=== PATIENT | female | born 1960 | race Caucasian/White ===

== ENCOUNTER 2018-02-24 19:38 | Emergency (ER) | payer MEDICARE, OTHER ==
[~2018-02-24] VITALS: Ht 160 cm; Wt 62.5 kg
[~2018-02-24 19:38] MED LIST: BUDE3CAP15 PO; CHOL5POW PO; HYDR-569 PO; LACT1CAP73 PO; LEVO500T89 PO; LOPE-144 PO; MESA800T PO; MESA800T3 PO; METR500T4 PO; OXYC-145 PO; PHE12.5T PO; PRED10TA PO; PROC-8 PO
[2018-02-24 20:27] LABS: BASOPHILS # (AUTO) 0.1 X10'3 (0-0.2); BASOPHILS % (AUTO) 0.8 % (0-1); EOSINOPHILS # (AUTO) 0.1 X10'3 (0-0.9); EOSINOPHILS % (AUTO) 1.3 % (0-6); HEMATOCRIT 37.4 % (35.0-45.0); HEMOGLOBIN 12.6 g/dl (12.0-16.0); LYMPHOCYTES # (AUTO) 2.7 X10'3 (1.1-4.8); LYMPHOCYTES % (AUTO) 38.8 % (21-51); MEAN CORPUSCULAR HEMOGLOBIN 30.7 PG (27.0-31.0); MEAN CORPUSCULAR HGB CONC 33.6 % (33.0-36.5); MEAN CORPUSCULAR VOLUME 91.3 FL (78-98); MEAN PLATELET VOLUME 8.3 FL (7.4-10.4); MONOCYTES # (AUTO) 0.5 X10'3 (0-0.9); MONOCYTES % (AUTO) 7.8 % (2-12); NEUTROPHILS # (AUTO) 3.6 X10'3 (1.8-7.7); NEUTROPHILS % (AUTO) 51.3 % (42-75); PLATELET COUNT 336 X10'3 (140-440)
[2018-02-24 20:37] LABS: INR 0.9 INR; PROTHROMBIN TIME 9.3 SECONDS (9.0-12.0)
[2018-02-24 20:41] LABS: ALANINE AMINOTRANSFERASE 24 U/L (12-78); ALBUMIN 3.6 G/DL (3.4-5.0); ALBUMIN/GLOBULIN RATIO 1.1 (1.1-1.5); ALKALINE PHOSPHATASE 71 IU/L (46-116); ANION GAP 15 (8-16); ASPARTATE AMINO TRANSFERASE 14 U/L (10-37); BILIRUBIN,TOTAL 0.2 MG/DL (0.1-1.0); BLOOD UREA NITROGEN 9 MG/DL (7-18); BUN/CREATININE RATIO 15.3 (6.6-38.0); CALCIUM 8.8 MG/DL (8.5-10.1); CHLORIDE 105 MMOL/L (99-107); CREATININE 0.59 MG/DL (0.40-0.90); GLUCOSE 102 MG/DL (70-104); POTASSIUM 3.2 MMOL/L (3.5-5.1); SODIUM 143 MMOL/L (135-145); TOTAL CARBON DIOXIDE 23.5 MMOL/L (24-32); TOTAL PROTEIN 6.9 G/DL (6.4-8.2); eGFR > 90 ML/MIN
[2018-02-24] MEDS ORDERED: morphine 4 MG/ML inj SYRINge IV ONE (23:10)
[2018-02-24] MEDS ORDERED: methylPREDNISolone sod succ 125mg/2ml vial IV ONE (23:10)
[2018-02-24] MEDS ORDERED: ondansetron/PF 4mg/2ml inj IV ONE (23:10)
[2018-02-24] MEDS ORDERED: normal saline 1000ML IV soln IVB ONE (23:10)
[2018-02-24] MEDS ORDERED: iohexol 300mg/ml 100ml inj. ONE (23:29)
[2018-02-24] MEDS ORDERED: potassium Cl 20 mEq SR tablet PO STA (23:49)
[2018-02-25] MEDS ORDERED: morphine 4 MG/ML inj SYRINge IV ONE (00:45)
[2018-02-25] MEDS ORDERED: loperamide 2mg capsule PO ONE (01:25)
[2018-02-25] MEDS ORDERED: LOPE-155 PO (01:28)
[2018-02-25 01:32] VITALS: BP 121/73
[2018-02-25 01:43] LABS: CLARITY,URINE CLEAR (Clear); COLOR,URINE YELLOW (Yellow); GLUCOSE, URINE NEGATIVE (Neg); KETONES,URINE NEGATIVE (Neg); LEUKOCYTE ESTERASE ,URINE NEGATIVE (Neg); NITRITES, URINE NEGATIVE (Neg); OCCULT BLOOD,URINE TRACE-INTACT (Neg); PH,URINE 5.5 (4.8-8.0); PROTEIN,URINE NEGATIVE (Neg); UROBILINOGEN,URINE 0.2 E.U/dL (0.2-1.0)
[2018-02-25] MEDS ORDERED: HYDR-569 PO (01:44)
[2018-02-25 01:47] LABS: UA COLLECTION TYPE CLN CATCH MIDSTREAM
[2018-02-25 01:59] LABS: BACTERIA,URINE FEW /HPF (Neg)
[2018-02-25 02:00] LABS: SQUAMOUS EPITHELIAL CELL,UR NONE SEEN /LPF (FEW); WBC,URINE NONE SEEN /HPF (0-4)
== END 2018-02-25 02:08 | disposition home or self-care (01) ==
LOC: ER 19:38
DX: R19.7 Diarrhea, unspecified (principal); E87.0 Hyperosmolality and hypernatremia; G89.29 Other chronic pain; F17.200 Nicotine dependence, unspecified, uncomplicated; F12.10 Cannabis abuse, uncomplicated; Z86.711 Personal history of pulmonary embolism; Z90.49 Acquired absence of other specified parts of digestive tract; Z98.84 Bariatric surgery status; Z88.8 Allergy status to other drugs, medicaments and biological substances; Z79.899 Other long term (current) drug therapy
CPT/HCPCS: 36415; 74177; 80053; 81001; 85025; 85610; 85651; 96361; 96374; 96375; 96376; 99285; J2270; J2405; J2930; J7030; Q9967

== ENCOUNTER 2018-06-14 10:47 | Emergency (ER) | payer OTHER ==
[~2018-06-14] VITALS: Ht 162.6 cm; Wt 68.1 kg
[~2018-06-14 10:47] MED LIST changes: +LOPE-155 PO
[2018-06-14] MEDS ORDERED: normal saline 1000ML IV soln IVB ONE (11:00)
[2018-06-14] MEDS ORDERED: morphine 4 MG/ML inj SYRINge IV PRN (11:00)
[2018-06-14] MEDS ORDERED: ondansetron/PF 4mg/2ml inj IV ONE (11:00)
[2018-06-14] MEDS ORDERED: ONDA4TAB9 PO (11:36)
[2018-06-14] MEDS ORDERED: MESA800T PO (11:36)
[2018-06-14 12:14] LABS: CLARITY,URINE CLEAR (Clear); COLOR,URINE YELLOW (Yellow); GLUCOSE, URINE NEGATIVE (Neg); KETONES,URINE NEGATIVE (Neg); LEUKOCYTE ESTERASE ,URINE NEGATIVE (Neg); NITRITES, URINE NEGATIVE (Neg); OCCULT BLOOD,URINE NEGATIVE (Neg); PROTEIN,URINE NEGATIVE (Neg); UROBILINOGEN,URINE 0.2 E.U/dL (0.2-1.0)
[2018-06-14 12:15] LABS: UA COLLECTION TYPE CLN CATCH MIDSTREAM
[2018-06-14] MEDS ORDERED: ondansetron 4mg rapidly disintigrating tab PO ONE (12:45)
[2018-06-14] MEDS ORDERED: morphine 10mg/ml inj. IM ONE (12:45)
[2018-06-14 13:17] LABS: HEMATOCRIT 38.5 % (35.0-45.0); HEMOGLOBIN 12.9 g/dl (12.0-16.0); MEAN CORPUSCULAR HEMOGLOBIN 30.4 PG (27.0-31.0); MEAN CORPUSCULAR HGB CONC 33.4 % (33.0-36.5); MEAN PLATELET VOLUME 8.5 FL (7.4-10.4); PLATELET COUNT 370 X10'3 (140-440); RED BLOOD COUNT 4.23 X10'6 (4.20-5.60); RED CELL DISTRIBUTION WIDTH 21.5 % (11.5-14.5); WHITE BLOOD COUNT 7.4 X10'3 (4.5-11.0)
[2018-06-14 13:29] LABS: TOTAL CELLS COUNTED 100
[2018-06-14 13:30] LABS: ANISOCYTOSIS 3+; PLATELET ESTIMATE NORMAL
[2018-06-14 13:35] VITALS: BP 140/80
[2018-06-14 13:40] LABS: ALANINE AMINOTRANSFERASE 20 U/L (12-78); ALBUMIN 3.6 G/DL (3.4-5.0); ALBUMIN/GLOBULIN RATIO 1.2 (1.1-1.5); ALKALINE PHOSPHATASE 83 IU/L (46-116); ANION GAP 13 (8-16); ASPARTATE AMINO TRANSFERASE 15 U/L (10-37); BILIRUBIN,TOTAL 0.5 MG/DL (0.1-1.0); BLOOD UREA NITROGEN 9 MG/DL (7-18); CHLORIDE 110 MMOL/L (99-107); CREATININE 0.69 MG/DL (0.40-0.90); GLUCOSE 100 MG/DL (70-104); LIPASE 197 U/L (73-393); POTASSIUM 3.7 MMOL/L (3.5-5.1); SODIUM 146 MMOL/L (135-145); TOTAL CARBON DIOXIDE 23.2 MMOL/L (24-32); TOTAL PROTEIN 6.6 G/DL (6.4-8.2); eGFR 87 ML/MIN
[2018-06-14] MEDS ORDERED: ketorolac tromethamine 15mg/ml inj. IV ONE (13:45)
[2018-06-14] MEDS ORDERED: dicyclomine 10 MG capsule PO ONE (13:45)
[2018-06-14 13:47] LABS: C DIFF ANTIGEN NEGATIVE (NEGATIVE); C DIFF SPECIMEN=DIARRHEA? ACCEPTABLE; C DIFFICILE TOXINS A&B NEGATIVE (Neg)
[2018-06-14] MEDS ORDERED: iohexol 300mg/ml 100ml inj. ONE (13:50)
[2018-06-14] MEDS ORDERED: LOPE2CAP PO (14:32)
[2018-06-14] MEDS ORDERED: ACET-3067 PO (14:32)
[2018-06-14] MEDS ORDERED: OXYC-150 PO (15:03)
[2018-06-14] MEDS ORDERED: ZALE10CA29 PO (15:05)
[2018-06-14] MEDS ORDERED: HYDR8TAB16 PO (15:06)
[2018-06-14] MEDS ORDERED: [UNRECOGNIZED DRUG - CODE] (15:10)
[2018-06-14] MEDS ORDERED: ZOLP10TA PO (15:10)
== END 2018-06-14 15:02 | disposition home or self-care (01) ==
LOC: ER 10:48
DX: R19.7 Diarrhea, unspecified (principal); R10.84 Generalized abdominal pain; M54.9 Dorsalgia, unspecified; R11.0 Nausea; G89.29 Other chronic pain; F12.90 Cannabis use, unspecified, uncomplicated; Z86.14 Personal history of Methicillin resistant Staphylococcus aureus infection; Z90.49 Acquired absence of other specified parts of digestive tract; Z98.0 Intestinal bypass and anastomosis status; Z98.890 Other specified postprocedural states; Z88.8 Allergy status to other drugs, medicaments and biological substances; Z79.899 Other long term (current) drug therapy
CPT/HCPCS: 36415; 74177; 80053; 81003; 83690; 85025; 87045; 87046; 87324; 87449; 96361; 96374; 96375; 99285; J1885; J2270; J2405; J7030; Q9967

== ENCOUNTER 2018-07-15 20:12 | Emergency (ER) | payer OTHER ==
[~2018-07-15] VITALS: Ht 160 cm; Wt 68.2 kg
[~2018-07-15 20:12] MED LIST changes: -BUDE3CAP15 PO; -CHOL5POW PO; -HYDR-569 PO; +HYDR8TAB16 PO; -LACT1CAP73 PO; -LEVO500T89 PO; -LOPE-144 PO; -LOPE-155 PO; -MESA800T PO; -MESA800T3 PO; -METR500T4 PO; +ONDA4TAB9 PO; -OXYC-145 PO; +OXYC-150 PO; -PHE12.5T PO; -PRED10TA PO; -PROC-8 PO; +ZALE10CA29 PO; +ZOLP10TA PO; +[UNRECOGNIZED DRUG - CODE]
[2018-07-15 21:08] LABS: CLARITY,URINE CLEAR (Clear); COLOR,URINE YELLOW (Yellow); GLUCOSE, URINE NEGATIVE (Neg); KETONES,URINE TRACE mg/dl (Neg); LEUKOCYTE ESTERASE ,URINE NEGATIVE (Neg); NITRITES, URINE NEGATIVE (Neg); OCCULT BLOOD,URINE NEGATIVE (Neg); PH,URINE 5.5 (4.8-8.0); PROTEIN,URINE NEGATIVE (Neg); UA COLLECTION TYPE CLN CATCH MIDSTREAM; UROBILINOGEN,URINE 0.2 E.U/dL (0.2-1.0)
[2018-07-15 21:09] LABS: URINE HCG NEGATIVE (NEG)
[2018-07-15] MEDS ORDERED: proCHLORperazine 10 MG/2 ml inj IV ONE (21:55)
[2018-07-15] MEDS ORDERED: normal saline 1000ML IV soln IVB ONE ×2 (21:55)
[2018-07-15] MEDS ORDERED: LORazepam 2 mg/ml vial IV ONE (21:55)
[2018-07-15] MEDS ORDERED: glycopyrrolate 0.2mg/ml inj IV ONE (21:55)
[2018-07-15] MEDS ORDERED: morphine 10mg/ml inj. IV ONE (22:05)
[2018-07-15 22:44] LABS: PROTHROMBIN TIME 9.7 SECONDS (9.0-12.0)
[2018-07-15 22:46] LABS: ALANINE AMINOTRANSFERASE 18 U/L (12-78); ALBUMIN 3.6 G/DL (3.4-5.0); ALBUMIN/GLOBULIN RATIO 1.2 (1.1-1.5); ALKALINE PHOSPHATASE 73 IU/L (46-116); ANION GAP 15 (8-16); ASPARTATE AMINO TRANSFERASE 15 U/L (10-37); BILIRUBIN,TOTAL 0.4 MG/DL (0.1-1.0); BLOOD UREA NITROGEN 5 MG/DL (7-18); BUN/CREATININE RATIO 8.2 (6.6-38.0); CHLORIDE 106 MMOL/L (99-107); CREATININE 0.61 MG/DL (0.40-0.90); GLUCOSE 130 MG/DL (70-104); POTASSIUM 3.8 MMOL/L (3.5-5.1); SODIUM 142 MMOL/L (135-145); TOTAL CARBON DIOXIDE 21.1 MMOL/L (24-32); TOTAL PROTEIN 6.5 G/DL (6.4-8.2); eGFR > 90 ML/MIN
[2018-07-15 22:50] LABS: BASOPHILS % (AUTO) 0 % (0-1); EOSINOPHILS # (AUTO) 0.1 X10'3 (0-0.9); EOSINOPHILS % (AUTO) 1.1 % (0-6); HEMOGLOBIN 12.7 g/dl (12.0-16.0); LYMPHOCYTES # (AUTO) 0.8 X10'3 (1.1-4.8); LYMPHOCYTES % (AUTO) 17.1 % (21-51); MEAN CORPUSCULAR HEMOGLOBIN 31.1 PG (27.0-31.0); MEAN CORPUSCULAR HGB CONC 33.5 % (33.0-36.5); MEAN CORPUSCULAR VOLUME 92.8 FL (78-98); MEAN PLATELET VOLUME 9.2 FL (7.4-10.4); MONOCYTES # (AUTO) 0.1 X10'3 (0-0.9); MONOCYTES % (AUTO) 1.3 % (2-12); NEUTROPHILS # (AUTO) 3.6 X10'3 (1.8-7.7); NEUTROPHILS % (AUTO) 80.5 % (42-75); PLATELET COUNT 313 X10'3 (140-440); RED BLOOD COUNT 4.09 X10'6 (4.20-5.60); RED CELL DISTRIBUTION WIDTH 18.6 % (11.5-14.5); WHITE BLOOD COUNT 4.5 X10'3 (4.5-11.0)
[2018-07-15 23:11] VITALS: BP 111/78
[2018-07-15 23:56] LABS: ANISOCYTOSIS 2+; PLATELET ESTIMATE NORMAL
== END 2018-07-15 23:12 | disposition home or self-care (01) ==
LOC: ER 20:13
DX: K42.9 Umbilical hernia without obstruction or gangrene (principal); R19.7 Diarrhea, unspecified; G89.29 Other chronic pain; F12.90 Cannabis use, unspecified, uncomplicated; Z90.49 Acquired absence of other specified parts of digestive tract; Z88.6 Allergy status to analgesic agent; Z88.8 Allergy status to other drugs, medicaments and biological substances; Z79.899 Other long term (current) drug therapy
CPT/HCPCS: 36415; 80053; 81003; 81025; 85025; 85610; 96361; 96374; 96375; 99284; J0780; J2060; J2270; J3490; J7030

== ENCOUNTER 2018-07-21 17:08 | Emergency (ER) | payer OTHER ==
[~2018-07-21] VITALS: Ht 160 cm; Wt 66.8 kg
[2018-07-21] MEDS ORDERED: morphine 4 MG/ML inj SYRINge IM ONE (17:50)
[2018-07-21] MEDS ORDERED: ondansetron 4mg rapidly disintigrating tab PO ONE (17:50)
[2018-07-21 18:16] LABS: BASOPHILS % (AUTO) 0.1 % (0-1); EOSINOPHILS % (AUTO) 0.3 % (0-6); HEMATOCRIT 37.4 % (35.0-45.0); HEMOGLOBIN 12.7 g/dl (12.0-16.0); LYMPHOCYTES # (AUTO) 1.8 X10'3 (1.1-4.8); LYMPHOCYTES % (AUTO) 29.6 % (21-51); MEAN CORPUSCULAR HEMOGLOBIN 31.4 PG (27.0-31.0); MEAN CORPUSCULAR HGB CONC 33.9 % (33.0-36.5); MEAN CORPUSCULAR VOLUME 92.6 FL (78-98); MEAN PLATELET VOLUME 8.7 FL (7.4-10.4); MONOCYTES # (AUTO) 0.4 X10'3 (0-0.9); MONOCYTES % (AUTO) 6.5 % (2-12); NEUTROPHILS # (AUTO) 3.8 X10'3 (1.8-7.7); NEUTROPHILS % (AUTO) 63.5 % (42-75); PLATELET COUNT 316 X10'3 (140-440); RED BLOOD COUNT 4.04 X10'6 (4.20-5.60); RED CELL DISTRIBUTION WIDTH 17.6 % (11.5-14.5)
[2018-07-21 18:30] LABS: PROTHROMBIN TIME 9.7 SECONDS (9.0-12.0)
[2018-07-21 18:31] LABS: ALANINE AMINOTRANSFERASE 17 U/L (12-78); ALBUMIN 3.4 G/DL (3.4-5.0); ALBUMIN/GLOBULIN RATIO 1.1 (1.1-1.5); ALKALINE PHOSPHATASE 68 IU/L (46-116); ANION GAP 10 (8-16); ASPARTATE AMINO TRANSFERASE 15 U/L (10-37); BILIRUBIN,TOTAL 0.4 MG/DL (0.1-1.0); BLOOD UREA NITROGEN 9 MG/DL (7-18); BUN/CREATININE RATIO 12.9 (6.6-38.0); CALCIUM 9.2 MG/DL (8.5-10.1); CHLORIDE 107 MMOL/L (99-107); GLUCOSE 115 MG/DL (70-104); SODIUM 140 MMOL/L (135-145); TOTAL CARBON DIOXIDE 22.7 MMOL/L (24-32); TOTAL PROTEIN 6.4 G/DL (6.4-8.2); eGFR 86 ML/MIN
[2018-07-21 18:32] LABS: POTASSIUM 3.8 MMOL/L (3.5-5.1)
[2018-07-21 19:03] LABS: LIPASE 142 U/L (73-393)
[2018-07-21 19:04] VITALS: BP 127/66
[2018-07-22 08:44] LABS: C DIFF ANTIGEN NEGATIVE (NEGATIVE); C DIFF SPECIMEN=DIARRHEA? ACCEPTABLE; C DIFFICILE TOXINS A&B NEGATIVE (Neg)
== END 2018-07-21 19:08 | disposition home or self-care (01) ==
LOC: ER 17:15
DX: R10.84 Generalized abdominal pain (principal); R11.10 Vomiting, unspecified; R19.7 Diarrhea, unspecified; G89.29 Other chronic pain; F12.90 Cannabis use, unspecified, uncomplicated; Z86.711 Personal history of pulmonary embolism; Z98.890 Other specified postprocedural states; Z90.49 Acquired absence of other specified parts of digestive tract; Z98.84 Bariatric surgery status; Z88.6 Allergy status to analgesic agent; Z79.899 Other long term (current) drug therapy
CPT/HCPCS: 36415; 80053; 83690; 85025; 85610; 87045; 87046; 87324; 87449; 96374; 99284; J2270

== ENCOUNTER 2018-08-05 10:15 | Inpatient (IN) | payer OTHER ==
[2018-08-04 15:32] LABS: CLARITY,URINE CLOUDY (Clear); COLOR,URINE YELLOW (Yellow); GLUCOSE, URINE NEGATIVE (Neg); KETONES,URINE TRACE mg/dl (Neg); LEUKOCYTE ESTERASE ,URINE SMALL (Neg); NITRITES, URINE POSITIVE (Neg); OCCULT BLOOD,URINE MODERATE (Neg); PH,URINE 5.5 (4.8-8.0); PROTEIN,URINE NEGATIVE (Neg); UROBILINOGEN,URINE 0.2 E.U/dL (0.2-1.0)
[2018-08-04 15:49] LABS: UA COLLECTION TYPE CLN CATCH MIDSTREAM
[2018-08-04 15:51] LABS: BACTERIA,URINE 4+ /HPF (Neg); MUCUS STRANDS MODERATE /LPF (Neg); RBC,URINE 0-2 /HPF (0-2); SQUAMOUS EPITHELIAL CELL,UR MODERATE /LPF (FEW); WBC,URINE TNTC /HPF (0-4)
[2018-08-05] VITALS (16 sets, daily range): BP systolic 96–140; BP diastolic 52–81
[~2018-08-05] VITALS: Ht 160 cm; Wt 66.2 kg
[~2018-08-05 10:15] MED LIST changes: -HYDR8TAB16 PO; +LACT1CAP65 PO; +MESA800T PO; +MULT1TAB74 PO; +STERIOD; -ZALE10CA29 PO; -ZOLP10TA PO; -[UNRECOGNIZED DRUG - CODE]; +cefazolin/dext.iso 2gm/100 ML IV ONE; +famotidine 20mg tablet PO ONE
[2018-08-05] MEDS: ringers solution, lacted 1,000 ML IV SCH ×2 (11:03→17:14)
[2018-08-05 11:42] LABS: BASOPHILS % (AUTO) 0.4 % (0-1); EOSINOPHILS # (AUTO) 0.1 X10'3 (0-0.9); EOSINOPHILS % (AUTO) 1.3 % (0-6); LYMPHOCYTES # (AUTO) 1.9 X10'3 (1.1-4.8); MEAN CORPUSCULAR HEMOGLOBIN 30.8 PG (27.0-31.0); MEAN CORPUSCULAR HGB CONC 33.3 % (33.0-36.5); MEAN CORPUSCULAR VOLUME 92.6 FL (78-98); MEAN PLATELET VOLUME 8.5 FL (7.4-10.4); MONOCYTES # (AUTO) 0.4 X10'3 (0-0.9); MONOCYTES % (AUTO) 7.3 % (2-12); NEUTROPHILS # (AUTO) 3.5 X10'3 (1.8-7.7); PRE OP HEMATOCRIT 41.2 % (35.0-45.0); PRE OP HEMOGLOBIN 13.7 g/dL (12.0-16.0); PRE OP PLATELET COUNT 370 X10'3 (140-440); RED BLOOD COUNT 4.45 X10'6 (4.20-5.60); RED CELL DISTRIBUTION WIDTH 15.8 % (11.5-14.5)
[2018-08-05 11:56] LABS: ALBUMIN 3.6 G/DL (3.4-5.0); ALBUMIN/GLOBULIN RATIO 1.1 (1.1-1.5); ALKALINE PHOSPHATASE 72 IU/L (46-116); BLOOD UREA NITROGEN 13 MG/DL (7-18); BUN/CREATININE RATIO 16.3 (6.6-38.0); CALCIUM 9.3 MG/DL (8.5-10.1); CHLORIDE 105 MMOL/L (99-107); PRE OP ALT 17 U/L (30-65); PRE OP ANION GAP 10 (8-16); PRE OP AST 10 U/L (10-37); PRE OP BILIRUB, TOTAL 0.3 MG/DL (0.0-1.0); PRE OP GLUCOSE 96 MG/DL (70-104); PRE OP POTASSIUM 4.1 MMOL/L (3.4-5.1); PRE OP SODIUM 141 MMOL/L (135-145); TOTAL CARBON DIOXIDE 26.5 MMOL/L (24-32); TOTAL PROTEIN 6.9 G/DL (6.4-8.2); eGFR 74 ML/MIN
[2018-08-05] MEDS ORDERED: ceFAZolin 1000mg inj ONE (12:39)
[2018-08-05] MEDS ORDERED: BUPIVAcaine/PF 2.5mg/ml (0.25%) 10ml vial ONE (12:39)
[2018-08-05] MEDS ORDERED: metoprolol tartrate 1mg/ml inj IV ONE (13:30)
[2018-08-05] MEDS ORDERED: esmolol 10mg/ml inj IV ONE (13:30)
[2018-08-05] MEDS ORDERED: sevoflurane 250ml liquid IH ONE (13:30)
[2018-08-05] MEDS ORDERED: furosemide 20 MG/2 ML vial ONE (13:30)
[2018-08-05] MEDS ORDERED: midazolam 2 mg/2 ml injection ONE (13:34)
[2018-08-05] MEDS ORDERED: fentaNYL /PF 50mcg/ml 5ml ampule ONE (13:34)
[2018-08-05] MEDS ORDERED: levoFLOXACIN-Levaquin 500mg/D5 100 ML IV ONE (13:35)
[2018-08-05] MEDS ORDERED: rocuronium 10mg/ml inj IV ONE ×3 (13:49→14:41)
[2018-08-05] MEDS ORDERED: LIDOcaine 2% (20mg/ml) 5ml vial ONE (13:49)
[2018-08-05] MEDS ORDERED: propofol inj 20 ML IV ONE (13:49)
[2018-08-05] MEDS ORDERED: morphine 10mg/ml inj. ONE (14:35)
[2018-08-05] MEDS ORDERED: acetaminophen 1,000mg/100ml IV 100 ML IV ONE (15:36)
[2018-08-05] MEDS ORDERED: meperidine/PF 25mg/ml syringe ONE (15:55)
[2018-08-05] MEDS ORDERED: ringers solution, lacted 1,000 ML IV SCH (15:59)
[2018-08-05] MEDS ORDERED: meperidine/PF 25mg/ml syringe IV PRN ×3 (16:00)
[2018-08-05] MEDS ORDERED: ondansetron/PF 4mg/2ml inj IV PRN (16:00)
[2018-08-05] MEDS ORDERED: morphine 4 MG/ML inj SYRINge IV PRN ×2 (16:00)
[2018-08-05] MEDS ORDERED: proCHLORperazine 10 MG/2 ml inj IV PRN (16:00)
[2018-08-05] MEDS: HYDROmorphone inj. 0.5 MG/0.5 ML DISP.SYRIN IV PRN ×3 (16:07→16:39)
[2018-08-05] MEDS ORDERED: neostigmine methylsulfate 1 MG/ML 10ml vial ONE (16:07)
[2018-08-05] MEDS ORDERED: dexamethasone sod phosphate 4mg/ml inj. ONE (16:07)
[2018-08-05] MEDS ORDERED: ondansetron/PF 4mg/2ml inj ONE (16:07)
[2018-08-05] MEDS ORDERED: glycopyrrolate 0.2mg/ml inj ONE (16:07)
[2018-08-05] MEDS: Potassium Cl inj 20 MEQ in ringers solution, lacted 1,000 ML IV SCH ×2 (16:26→23:44)
[2018-08-05] MEDS ORDERED: naloxone 0.4 mg/ml inj IV PRN (16:30)
[2018-08-05] MEDS ORDERED: HYDROcodone/acetaminophen 5mg/325mg tablet PO PRN (16:30)
[2018-08-05] MEDS: HYDROmorphone/NS 1 mg/ml CADD 50 ML IV SCH ×4 (16:45→23:00)
[2018-08-05] MEDS: ondansetron/PF 4mg/2ml inj IV PRN (21:43)
[2018-08-06] VITALS: BP 101/58
[2018-08-06 00:45] VITALS: BP 100/60
[2018-08-06] MEDS: HYDROmorphone/NS 1 mg/ml CADD 50 ML IV SCH ×12 (01:00→23:00)
[2018-08-06 05:02] LABS: BASOPHILS % (AUTO) 0.3 % (0-1); EOSINOPHILS # (AUTO) 0.1 X10'3 (0-0.9); EOSINOPHILS % (AUTO) 0.9 % (0-6); HEMATOCRIT 31.6 % (35.0-45.0); HEMOGLOBIN 10.6 g/dl (12.0-16.0); LYMPHOCYTES # (AUTO) 1.4 X10'3 (1.1-4.8); LYMPHOCYTES % (AUTO) 16.3 % (21-51); MEAN CORPUSCULAR HEMOGLOBIN 31.3 PG (27.0-31.0); MEAN CORPUSCULAR HGB CONC 33.7 % (33.0-36.5); MEAN CORPUSCULAR VOLUME 93.1 FL (78-98); MEAN PLATELET VOLUME 9.1 FL (7.4-10.4); MONOCYTES # (AUTO) 0.7 X10'3 (0-0.9); MONOCYTES % (AUTO) 8.5 % (2-12); NEUTROPHILS # (AUTO) 6.1 X10'3 (1.8-7.7); PLATELET COUNT 274 X10'3 (140-440); RED CELL DISTRIBUTION WIDTH 15.4 % (11.5-14.5); WHITE BLOOD COUNT 8.3 X10'3 (4.5-11.0)
[2018-08-06] MEDS: mesalamine 400 mg capsule.DR PO SCH ×3 (07:00→17:58)
[2018-08-06 07:35] VITALS: BP 96/58
[2018-08-06] MEDS: Potassium Cl inj 20 MEQ in ringers solution, lacted 1,000 ML IV SCH ×2 (07:55→16:19)
[2018-08-06] MEDS: enoxaparin 40mg/0.4ml syringe SQ SCH (07:59)
[2018-08-06 11:00] VITALS: BP 102/58
[2018-08-06] MEDS: levoFLOXACIN 750MG TABLET PO SCH (11:12)
[2018-08-06] MEDS: ondansetron/PF 4mg/2ml inj IV PRN (12:28)
[2018-08-06] MEDS: nicotine 21mg patch - 24 hr TD SCH (16:17)
[2018-08-06 18:00] VITALS: BP 117/70
[2018-08-06] MEDS: lactobacillus rhamnosus 10,000 MMU CELLS/CAPSULE PO SCH (19:19)
[2018-08-07] VITALS: BP 126/75
[2018-08-07] MEDS: Potassium Cl inj 20 MEQ in ringers solution, lacted 1,000 ML IV SCH ×3 (00:01→17:06)
[2018-08-07] MEDS: HYDROmorphone/NS 1 mg/ml CADD 50 ML IV SCH ×12 (01:00→23:00)
[2018-08-07] MEDS: ondansetron/PF 4mg/2ml inj IV PRN ×3 (01:43→20:56)
[2018-08-07 07:16] VITALS: BP 96/52
[2018-08-07] MEDS: lactobacillus rhamnosus 10,000 MMU CELLS/CAPSULE PO SCH ×2 (07:28→19:37)
[2018-08-07] MEDS: mesalamine 400 mg capsule.DR PO SCH ×3 (07:31→17:15)
[2018-08-07] MEDS: enoxaparin 40mg/0.4ml syringe SQ SCH (07:33)
[2018-08-07] MEDS: nicotine 21mg patch - 24 hr TD SCH (07:37)
[2018-08-07] MEDS: levoFLOXACIN 750MG TABLET PO SCH (10:41)
[2018-08-07 12:00] VITALS: BP 117/75
[2018-08-07] MEDS: CefTRIAXone/D5W-Rocephin 1gm 50 ML IV SCH (17:06)
[2018-08-07 18:00] VITALS: BP 122/83
[2018-08-08] VITALS: BP 104/62
[2018-08-08] MEDS: HYDROmorphone/NS 1 mg/ml CADD 50 ML IV SCH ×4 (01:00→07:00)
[2018-08-08] MEDS: ondansetron/PF 4mg/2ml inj IV PRN ×5 (01:01→21:07)
[2018-08-08] MEDS: CADD PCA waste documentation MC PRN ×2 (03:06→14:25)
[2018-08-08] MEDS: Potassium Cl inj 20 MEQ in ringers solution, lacted 1,000 ML IV SCH ×2 (03:19→09:06)
[2018-08-08 06:51] VITALS: BP 126/74
[2018-08-08 06:56] LABS: BASOPHILS % (AUTO) 0.3 % (0-1); EOSINOPHILS # (AUTO) 0.1 X10'3 (0-0.9); EOSINOPHILS % (AUTO) 1.7 % (0-6); HEMATOCRIT 31.2 % (35.0-45.0); HEMOGLOBIN 10.4 g/dl (12.0-16.0); LYMPHOCYTES # (AUTO) 1.5 X10'3 (1.1-4.8); MEAN CORPUSCULAR HEMOGLOBIN 31.2 PG (27.0-31.0); MEAN CORPUSCULAR HGB CONC 33.4 % (33.0-36.5); MEAN CORPUSCULAR VOLUME 93.3 FL (78-98); MEAN PLATELET VOLUME 9.4 FL (7.4-10.4); MONOCYTES # (AUTO) 0.6 X10'3 (0-0.9); MONOCYTES % (AUTO) 9.4 % (2-12); NEUTROPHILS # (AUTO) 4.1 X10'3 (1.8-7.7); NEUTROPHILS % (AUTO) 64.6 % (42-75); PLATELET COUNT 263 X10'3 (140-440); RED BLOOD COUNT 3.35 X10'6 (4.20-5.60); RED CELL DISTRIBUTION WIDTH 15.2 % (11.5-14.5); WHITE BLOOD COUNT 6.3 X10'3 (4.5-11.0)
[2018-08-08 07:47] LABS: ALBUMIN 3.1 G/DL (3.4-5.0); ANION GAP 9 (8-16); BLOOD UREA NITROGEN 4 MG/DL (7-18); BUN/CREATININE RATIO 5.9 (6.6-38.0); CALCIUM 9.4 MG/DL (8.5-10.1); CHLORIDE 101 MMOL/L (99-107); CREATININE 0.68 MG/DL (0.40-0.90); GLUCOSE 101 MG/DL (70-104); SODIUM 140 MMOL/L (135-145); eGFR 89 ML/MIN
[2018-08-08] MEDS: CefTRIAXone/D5W-Rocephin 1gm 50 ML IV SCH (07:54)
[2018-08-08] MEDS: enoxaparin 40mg/0.4ml syringe SQ SCH (07:55)
[2018-08-08] MEDS: nicotine 21mg patch - 24 hr TD SCH (07:55)
[2018-08-08] MEDS: mesalamine 400 mg capsule.DR PO SCH ×3 (08:01→17:24)
[2018-08-08] MEDS: lactobacillus rhamnosus 10,000 MMU CELLS/CAPSULE PO SCH ×3 (08:04→21:08)
[2018-08-08 11:00] VITALS: BP 115/87
[2018-08-08] MEDS ORDERED: HYDROmorphone/NS 1 mg/ml CADD 50 ML IV SCH (13:00)
[2018-08-08] MEDS ORDERED: oxyCODONE/APAP 10/325mg tablet PO PRN (14:20)
[2018-08-08] MEDS: HYDROmorphone 1 mg/ml syringe IV PRN ×4 (14:52→22:59)
[2018-08-08] MEDS: oxyCODONE/APAP 10/325mg tablet PO PRN (17:17)
[2018-08-08 18:55] VITALS: BP 104/56
[2018-08-09] VITALS: BP 102/63
[2018-08-09] MEDS: Potassium Cl inj 20 MEQ in ringers solution, lacted 1,000 ML IV SCH ×2 (02:00→03:41)
[2018-08-09] MEDS: HYDROmorphone 1 mg/ml syringe IV PRN ×2 (03:00→07:45)
[2018-08-09] MEDS: oxyCODONE/APAP 10/325mg tablet PO PRN ×4 (04:34→23:04)
[2018-08-09 05:29] LABS: BASOPHILS % (AUTO) 0.4 % (0-1); EOSINOPHILS # (AUTO) 0.1 X10'3 (0-0.9); EOSINOPHILS % (AUTO) 1.9 % (0-6); HEMATOCRIT 29.6 % (35.0-45.0); HEMOGLOBIN 9.8 g/dl (12.0-16.0); LYMPHOCYTES # (AUTO) 0.7 X10'3 (1.1-4.8); LYMPHOCYTES % (AUTO) 14.9 % (21-51); MEAN CORPUSCULAR HEMOGLOBIN 30.8 PG (27.0-31.0); MEAN CORPUSCULAR HGB CONC 33.2 % (33.0-36.5); MEAN CORPUSCULAR VOLUME 92.8 FL (78-98); MEAN PLATELET VOLUME 8.3 FL (7.4-10.4); MONOCYTES # (AUTO) 0.3 X10'3 (0-0.9); MONOCYTES % (AUTO) 7.2 % (2-12); NEUTROPHILS # (AUTO) 3.6 X10'3 (1.8-7.7); NEUTROPHILS % (AUTO) 75.6 % (42-75); PLATELET COUNT 274 X10'3 (140-440); RED BLOOD COUNT 3.19 X10'6 (4.20-5.60); RED CELL DISTRIBUTION WIDTH 15.3 % (11.5-14.5); WHITE BLOOD COUNT 4.8 X10'3 (4.5-11.0)
[2018-08-09 07:16] VITALS: BP 95/56
[2018-08-09] MEDS: mesalamine 400 mg capsule.DR PO SCH ×3 (07:26→17:18)
[2018-08-09] MEDS: lactobacillus rhamnosus 10,000 MMU CELLS/CAPSULE PO SCH ×2 (07:27→19:51)
[2018-08-09] MEDS: enoxaparin 40mg/0.4ml syringe SQ SCH (07:27)
[2018-08-09] MEDS: CefTRIAXone/D5W-Rocephin 1gm 50 ML IV SCH (07:28)
[2018-08-09] MEDS: nicotine 21mg patch - 24 hr TD SCH (07:28)
[2018-08-09] MEDS: ondansetron/PF 4mg/2ml inj IV PRN ×3 (07:45→19:50)
[2018-08-09] MEDS ORDERED: magnesium hydroxide 30ml (MOM) UD suspension PO ONE (10:10)
[2018-08-09] MEDS ORDERED: mineral oil 133ml enema RC PRN (10:10)
[2018-08-09 11:53] VITALS: BP 107/75
[2018-08-09] MEDS: bisacodyl 10mg suppository rectal RC PRN (14:24)
[2018-08-09 19:00] VITALS: BP 131/77
[2018-08-10] VITALS: BP 93/59
[2018-08-10] MEDS: ondansetron/PF 4mg/2ml inj IV PRN ×6 (00:13→21:59)
[2018-08-10] MEDS: oxyCODONE/APAP 10/325mg tablet PO PRN ×4 (05:15→21:49)
[2018-08-10 06:59] VITALS: BP 103/65
[2018-08-10] MEDS: mesalamine 400 mg capsule.DR PO SCH ×3 (07:19→17:29)
[2018-08-10] MEDS: nicotine 21mg patch - 24 hr TD SCH (07:20)
[2018-08-10] MEDS: lactobacillus rhamnosus 10,000 MMU CELLS/CAPSULE PO SCH ×2 (07:21→20:52)
[2018-08-10] MEDS: enoxaparin 40mg/0.4ml syringe SQ SCH (07:21)
[2018-08-10] MEDS: CefTRIAXone/D5W-Rocephin 1gm 50 ML IV SCH (07:25)
[2018-08-10 08:02] LABS: EOSINOPHILS # (AUTO) 0.1 X10'3 (0-0.9); HEMOGLOBIN 9.9 g/dl (12.0-16.0); LYMPHOCYTES # (AUTO) 0.9 X10'3 (1.1-4.8); MONOCYTES # (AUTO) 0.5 X10'3 (0-0.9); NEUTROPHILS # (AUTO) 2.6 X10'3 (1.8-7.7); RED BLOOD COUNT 3.23 X10'6 (4.20-5.60)
[2018-08-10 09:06] LABS: BASOPHILS % (AUTO) 0.5 % (0-1); LYMPHOCYTES % (AUTO) 21.9 % (21-51); MEAN CORPUSCULAR HEMOGLOBIN 30.8 PG (27.0-31.0); MEAN CORPUSCULAR HGB CONC 33.2 % (33.0-36.5); MEAN CORPUSCULAR VOLUME 92.7 FL (78-98); MEAN PLATELET VOLUME 8.9 FL (7.4-10.4); MONOCYTES % (AUTO) 11.8 % (2-12); NEUTROPHILS % (AUTO) 63.8 % (42-75); PLATELET COUNT 314 X10'3 (140-440); RED CELL DISTRIBUTION WIDTH 15.3 % (11.5-14.5)
[2018-08-10 11:28] VITALS: BP 119/70
[2018-08-10 19:00] VITALS: BP 164/67
[2018-08-10 19:20] VITALS: BP 139/78
[2018-08-11] VITALS: BP 110/60
[2018-08-11] MEDS: oxyCODONE/APAP 10/325mg tablet PO PRN ×6 (01:30→23:32)
[2018-08-11] MEDS: ondansetron/PF 4mg/2ml inj IV PRN ×2 (01:30→05:33)
[2018-08-11] MEDS: bisacodyl 10mg suppository rectal RC PRN (05:34)
[2018-08-11 08:00] VITALS: BP 127/82
[2018-08-11] MEDS: CefTRIAXone/D5W-Rocephin 1gm 50 ML IV SCH (08:00)
[2018-08-11] MEDS: mesalamine 400 mg capsule.DR PO SCH ×3 (08:16→17:23)
[2018-08-11] MEDS: lactobacillus rhamnosus 10,000 MMU CELLS/CAPSULE PO SCH ×2 (08:16→21:42)
[2018-08-11] MEDS: enoxaparin 40mg/0.4ml syringe SQ SCH (08:17)
[2018-08-11] MEDS: nicotine 21mg patch - 24 hr TD SCH (08:18)
[2018-08-11 11:00] VITALS: BP 122/73
[2018-08-11 19:00] VITALS: BP 118/73
[2018-08-11] MEDS: ondansetron 4mg rapidly disintigrating tab PO PRN (22:03)
[2018-08-11] MEDS: acyclovir 5% 15GM ointment TP SCH (22:03)
[2018-08-12] VITALS: BP 114/68
[2018-08-12] MEDS: acyclovir 5% 15GM ointment TP SCH ×2 (02:00→08:50)
[2018-08-12] MEDS: oxyCODONE/APAP 10/325mg tablet PO PRN ×3 (04:32→12:31)
[2018-08-12 07:00] VITALS: BP 123/71
[2018-08-12] MEDS: CefTRIAXone/D5W-Rocephin 1gm 50 ML IV SCH (08:00)
[2018-08-12] MEDS: nicotine 21mg patch - 24 hr TD SCH (08:48)
[2018-08-12] MEDS: lactobacillus rhamnosus 10,000 MMU CELLS/CAPSULE PO SCH (08:48)
[2018-08-12] MEDS: mesalamine 400 mg capsule.DR PO SCH ×2 (08:48→12:30)
[2018-08-12] MEDS: enoxaparin 40mg/0.4ml syringe SQ SCH (08:49)
[2018-08-12] MEDS: ondansetron 4mg rapidly disintigrating tab PO PRN ×2 (08:55→12:34)
[2018-08-12] MEDS ORDERED: ACYC15OI7 TP (10:17)
[2018-08-12 12:00] VITALS: BP 139/73
== END 2018-08-12 13:19 | disposition home or self-care (01) | DRG 336 ==
LOC: PAS 10:15 → SUR 3N 10:16 → PAS 16:26 → SUR 3N 16:26
PROVIDERS: ADMIT Surgery; ATTEND Surgery
PROC: 0DNE4ZZ Release Large Intestine, Percutaneous Endoscopic Approach (ICD-10-PCS; 2018-08-05)
PROC: 0DN84ZZ Release Small Intestine, Percutaneous Endoscopic Approach (ICD-10-PCS; 2018-08-05)
PROC: 0DNU4ZZ Release Omentum, Percutaneous Endoscopic Approach (ICD-10-PCS; 2018-08-05)
PROC: 0WUF4JZ Supplement Abdominal Wall with Synthetic Substitute, Percutaneous Endoscopic Approach (ICD-10-PCS; principal; 2018-08-05 13:30)
DX: K43.0 Incisional hernia with obstruction, without gangrene (principal); K50.90 Crohn's disease, unspecified, without complications; D62 Acute posthemorrhagic anemia; G89.29 Other chronic pain; K66.0 Peritoneal adhesions (postprocedural) (postinfection); G47.30 Sleep apnea, unspecified; F17.210 Nicotine dependence, cigarettes, uncomplicated; Z98.84 Bariatric surgery status; Z90.49 Acquired absence of other specified parts of digestive tract; Z79.899 Other long term (current) drug therapy; Z81.1 Family history of alcohol abuse and dependence
CPT/HCPCS: 36415; 80048; 80053; 81001; 85025; 86140; 87070; 87077; 87088; 87186; 93005; A7000; C1713; C1758; C1781; G0378; J0131; J0690; J0696; J1100; J1170; J1650; J1940; J1956; J2001; J2175; J2250; J2270; J2405; J2704; J2710; J3010; J3480; J3490; J7120

== ENCOUNTER 2018-08-24 12:03 | Inpatient (IN) | payer OTHER ==
[~2018-08-24] VITALS: Ht 160 cm; Wt 57.0 kg
[~2018-08-24 12:03] MED LIST changes: +ACYC15OI7 TP; -STERIOD; -cefazolin/dext.iso 2gm/100 ML IV ONE; -famotidine 20mg tablet PO ONE
[2018-08-24] MEDS ORDERED: ondansetron/PF 4mg/2ml inj IV ONE ×2 (12:45→13:30)
[2018-08-24] MEDS ORDERED: normal saline 1000ML IV soln IVB ONE (12:45)
[2018-08-24 13:08] LABS: BASOPHILS % (AUTO) 0.6 % (0-1); EOSINOPHILS # (AUTO) 0.1 X10'3 (0-0.9); EOSINOPHILS % (AUTO) 1.1 % (0-6); HEMATOCRIT 34.9 % (35.0-45.0); HEMOGLOBIN 11.4 g/dl (12.0-16.0); LYMPHOCYTES % (AUTO) 14.4 % (21-51); MEAN CORPUSCULAR HEMOGLOBIN 30.4 PG (27.0-31.0); MEAN CORPUSCULAR HGB CONC 32.6 % (33.0-36.5); MEAN CORPUSCULAR VOLUME 93.4 FL (78-98); MEAN PLATELET VOLUME 7.8 FL (7.4-10.4); MONOCYTES # (AUTO) 0.4 X10'3 (0-0.9); NEUTROPHILS # (AUTO) 5.7 X10'3 (1.8-7.7); NEUTROPHILS % (AUTO) 78.9 % (42-75); PLATELET COUNT 644 X10'3 (140-440); RED BLOOD COUNT 3.74 X10'6 (4.20-5.60); RED CELL DISTRIBUTION WIDTH 15.3 % (11.5-14.5); WHITE BLOOD COUNT 7.3 X10'3 (4.5-11.0)
[2018-08-24 13:10] LABS: CLARITY,URINE SLIGHTLY CLOUDY (Clear); COLOR,URINE YELLOW (Yellow); GLUCOSE, URINE NEGATIVE (Neg); KETONES,URINE NEGATIVE (Neg); LEUKOCYTE ESTERASE ,URINE NEGATIVE (Neg); NITRITES, URINE NEGATIVE (Neg); OCCULT BLOOD,URINE TRACE-INTACT (Neg); PROTEIN,URINE NEGATIVE (Neg); UROBILINOGEN,URINE 0.2 E.U/dL (0.2-1.0)
[2018-08-24 13:20] LABS: UA COLLECTION TYPE CLN CATCH MIDSTREAM
[2018-08-24 13:20] LABS: ALANINE AMINOTRANSFERASE 13 U/L (12-78); ALBUMIN 3.3 G/DL (3.4-5.0); ALBUMIN/GLOBULIN RATIO 1.1 (1.1-1.5); ALKALINE PHOSPHATASE 81 IU/L (46-116); ANION GAP 10 (8-16); ASPARTATE AMINO TRANSFERASE 13 U/L (10-37); BILIRUBIN,TOTAL 0.3 MG/DL (0.1-1.0); BLOOD UREA NITROGEN 18 MG/DL (7-18); CHLORIDE 105 MMOL/L (99-107); CREATININE 0.62 MG/DL (0.40-0.90); GLUCOSE 109 MG/DL (70-104); LIPASE 91 U/L (73-393); POTASSIUM 4.1 MMOL/L (3.5-5.1); SODIUM 141 MMOL/L (135-145); TOTAL CARBON DIOXIDE 25.7 MMOL/L (24-32); TOTAL PROTEIN 6.4 G/DL (6.4-8.2); eGFR > 90 ML/MIN
[2018-08-24 13:23] LABS: BACTERIA,URINE NONE SEEN /HPF (Neg); MUCUS STRANDS MODERATE /LPF (Neg); SQUAMOUS EPITHELIAL CELL,UR FEW /LPF (FEW); WBC,URINE 0-4 /HPF (0-4)
[2018-08-24 13:34] LABS: PROTHROMBIN TIME 9.7 SECONDS (9.0-12.0)
[2018-08-24] MEDS: morphine 4 MG/ML inj SYRINge IV PRN ×2 (13:48→16:42)
[2018-08-24] MEDS ORDERED: potassium Cl 40MEQ/NS 500ml 500 ML IV PRN ×2 (16:35)
[2018-08-24] MEDS ORDERED: magnesium hydroxide 30ml (MOM) UD suspension PO PRN (16:35)
[2018-08-24] MEDS ORDERED: HYDROcodone/acetaminophen 5mg/325mg tablet PO PRN (16:35)
[2018-08-24] MEDS ORDERED: mag hydrox/Alum hydrox/simeth 30ml oral suspension PO PRN (16:35)
[2018-08-24] MEDS ORDERED: magnesium Cl slow-release 64mg tablet PO PRN (16:35)
[2018-08-24] MEDS ORDERED: acetaminophen 325mg tablet PO PRN ×2 (16:35)
[2018-08-24] MEDS ORDERED: HYDROcodone/acetaminophen 10/325mg tab PO PRN (16:35)
[2018-08-24] MEDS ORDERED: potassium Cl 20 mEq SR tablet PO PRN ×2 (16:35)
[2018-08-24] MEDS ORDERED: HYDROmorphone 1 mg/ml syringe IV PRN (16:35)
[2018-08-24] MEDS ORDERED: magnesium 4gm in 100ml NS 100 ML IV PRN (16:35)
[2018-08-24] MEDS: normal saline 1000ml 1,000 ML IV SCH (18:43)
[2018-08-24] MEDS: nicotine 14mg patch - 24hr TD SCH (18:44)
[2018-08-24] MEDS: ondansetron/PF 4mg/2ml inj IV PRN (18:44)
[2018-08-24] MEDS: HYDROmorphone 1 mg/ml syringe IV PRN ×2 (18:45→22:32)
[2018-08-24] MEDS: oxyCODONE/APAP 10/325mg tablet PO SCH (19:51)
[2018-08-24 20:00] VITALS: BP 123/77
[2018-08-24] MEDS: zolpidem 5mg tablet PO PRN (22:32)
[2018-08-24] MEDS: diatr meglu/diatrizoate 30ml oral sol.-(3 dose) bottle PO SCH (22:33)
[2018-08-24 23:00] VITALS: BP 116/72
[2018-08-25] VITALS (11 sets, daily range): BP systolic 108–138; BP diastolic 54–81
[2018-08-25] MEDS: oxyCODONE/APAP 10/325mg tablet PO SCH ×4 (01:50→19:32)
[2018-08-25] MEDS: ondansetron/PF 4mg/2ml inj IV PRN (01:50)
[2018-08-25] MEDS: normal saline 1000ml 1,000 ML IV SCH ×2 (02:30→10:40)
[2018-08-25] MEDS: HYDROmorphone 1 mg/ml syringe IV PRN ×6 (02:38→21:11)
[2018-08-25 06:12] LABS: BASOPHILS % (AUTO) 0.6 % (0-1); EOSINOPHILS # (AUTO) 0.1 X10'3 (0-0.9); EOSINOPHILS % (AUTO) 2.6 % (0-6); HEMATOCRIT 31.7 % (35.0-45.0); HEMOGLOBIN 10.5 g/dl (12.0-16.0); LYMPHOCYTES % (AUTO) 36.9 % (21-51); MEAN CORPUSCULAR HEMOGLOBIN 30.9 PG (27.0-31.0); MEAN CORPUSCULAR HGB CONC 33.1 % (33.0-36.5); MEAN CORPUSCULAR VOLUME 93.4 FL (78-98); MEAN PLATELET VOLUME 8.2 FL (7.4-10.4); MONOCYTES # (AUTO) 0.4 X10'3 (0-0.9); MONOCYTES % (AUTO) 8.4 % (2-12); NEUTROPHILS # (AUTO) 2.8 X10'3 (1.8-7.7); NEUTROPHILS % (AUTO) 51.5 % (42-75); PLATELET COUNT 502 X10'3 (140-440); RED BLOOD COUNT 3.39 X10'6 (4.20-5.60); RED CELL DISTRIBUTION WIDTH 15.5 % (11.5-14.5); WHITE BLOOD COUNT 5.3 X10'3 (4.5-11.0)
[2018-08-25 06:42] LABS: ALANINE AMINOTRANSFERASE 12 U/L (12-78); ALBUMIN 2.7 G/DL (3.4-5.0); ALBUMIN/GLOBULIN RATIO 0.9 (1.1-1.5); ALKALINE PHOSPHATASE 69 IU/L (46-116); ANION GAP 10 (8-16); ASPARTATE AMINO TRANSFERASE 11 U/L (10-37); BILIRUBIN,TOTAL 0.2 MG/DL (0.1-1.0); BLOOD UREA NITROGEN 10 MG/DL (7-18); BUN/CREATININE RATIO 15.4 (6.6-38.0); CALCIUM 8.4 MG/DL (8.5-10.1); CHLORIDE 109 MMOL/L (99-107); CREATININE 0.65 MG/DL (0.40-0.90); GLUCOSE 90 MG/DL (70-104); MAGNESIUM 1.8 MG/DL (1.5-2.4); POTASSIUM 3.6 MMOL/L (3.5-5.1); SODIUM 144 MMOL/L (135-145); TOTAL CARBON DIOXIDE 25.5 MMOL/L (24-32); TOTAL PROTEIN 5.6 G/DL (6.4-8.2); eGFR > 90 ML/MIN
[2018-08-25] MEDS: diatr meglu/diatrizoate 30ml oral sol.-(3 dose) bottle PO SCH ×2 (07:42→09:22)
[2018-08-25] MEDS: lactobacillus rhamnosus 10,000 MMU CELLS/CAPSULE PO SCH (07:45)
[2018-08-25] MEDS: nicotine 14mg patch - 24hr TD SCH ×2 (07:46→19:33)
[2018-08-25] MEDS: enoxaparin 40mg/0.4ml syringe SQ SCH (07:48)
[2018-08-25] MEDS ORDERED: non-formulary drug (Lactobacillus Acidophilus (Probiotic) 1 EACH) PO SCH (08:00)
[2018-08-25] MEDS ORDERED: mesalamine 400 mg capsule.DR PO SCH (08:00)
[2018-08-25] MEDS ORDERED: MESALAMINE 800 MG PO SCH (08:00)
[2018-08-25] MEDS: K and/or MAG REPLACEMENT MC SCH (08:00)
[2018-08-25] MEDS ORDERED: iohexol 300mg/ml 100ml inj. ONE (09:20)
[2018-08-25] MEDS ORDERED: vancomycin/NS 1 GM ADD-VANTAGE 250 ML IV SCH (12:10)
[2018-08-25] MEDS ORDERED: levoFLOXACIN-Levaquin 500mg/D5 100 ML IV SCH (12:10)
[2018-08-25] MEDS: docusate sod 100mg capsule PO SCH ×2 (12:56→19:33)
[2018-08-25] MEDS ORDERED: VANCOMYCIN 750MG IV in NS 250 ML IV SCH (13:00)
[2018-08-25] MEDS ORDERED: midazolam 2 mg/2 ml injection IV PRN (13:35)
[2018-08-25] MEDS ORDERED: fentaNYL/PF 50MCG/1 ML 2ML syringe IV PRN (13:35)
[2018-08-25] MEDS ORDERED: LIDOcaine 1%/PF 5ML 10 MG/ML VIAL SQ ONE (13:35)
[2018-08-25] MEDS ORDERED: LIDOcaine 1%/PF 5ML 10 MG/ML VIAL ONE (13:49)
[2018-08-25] MEDS ORDERED: midazolam 2 mg/2 ml injection ONE ×2 (13:50→14:08)
[2018-08-25] MEDS ORDERED: fentaNYL/PF 50MCG/1 ML 2ML syringe ONE ×2 (13:50→14:05)
[2018-08-25 16:07] LABS: TOTAL PROTEIN,BODY FLUID 3.9 G/DL
[2018-08-25 16:10] LABS: GLUCOSE,BODY FLUID < 1 MG/DL
[2018-08-25 16:42] LABS: BF WBC COUNT 450 /CU MM (0-1000); BFAPPEAR BLOODY; BFCOLOR RED; BFVOLUME 7.5 ML
[2018-08-25 16:43] LABS: BF RBC COUNT 175000 /CU MM; MONOCYTES,BODY FLUID 25 %; NEUTROPHILS,BODY FLUID 75 %
[2018-08-25] MEDS: potassium Cl 20mEq in NS 1,000 ML IV SCH (17:08)
[2018-08-25] MEDS: zolpidem 5mg tablet PO PRN (21:10)
[2018-08-25] MEDS ORDERED: mesalamine 400 mg capsule.DR PO ONE (21:10)
[2018-08-25] MEDS: temazepam 15mg capsule PO PRN (22:12)
[2018-08-26] VITALS: BP 122/71
[2018-08-26] MEDS: HYDROmorphone 1 mg/ml syringe IV PRN ×4 (00:09→09:01)
[2018-08-26] MEDS: oxyCODONE/APAP 10/325mg tablet PO SCH ×2 (01:46→08:50)
[2018-08-26] MEDS: potassium Cl 20mEq in NS 1,000 ML IV SCH (05:49)
[2018-08-26] MEDS: ondansetron/PF 4mg/2ml inj IV PRN ×2 (05:50→17:31)
[2018-08-26 05:56] LABS: BASOPHILS # (AUTO) 0.1 X10'3 (0-0.2); BASOPHILS % (AUTO) 1.2 % (0-1); EOSINOPHILS # (AUTO) 0.1 X10'3 (0-0.9); EOSINOPHILS % (AUTO) 1.7 % (0-6); HEMATOCRIT 32.9 % (35.0-45.0); HEMOGLOBIN 10.6 g/dl (12.0-16.0); LYMPHOCYTES % (AUTO) 45.2 % (21-51); MEAN CORPUSCULAR HEMOGLOBIN 30.1 PG (27.0-31.0); MEAN CORPUSCULAR HGB CONC 32.2 % (33.0-36.5); MEAN CORPUSCULAR VOLUME 93.6 FL (78-98); MEAN PLATELET VOLUME 8.2 FL (7.4-10.4); MONOCYTES # (AUTO) 0.4 X10'3 (0-0.9); MONOCYTES % (AUTO) 9.8 % (2-12); NEUTROPHILS # (AUTO) 1.8 X10'3 (1.8-7.7); NEUTROPHILS % (AUTO) 42.1 % (42-75); PLATELET COUNT 487 X10'3 (140-440); RED BLOOD COUNT 3.51 X10'6 (4.20-5.60); RED CELL DISTRIBUTION WIDTH 15.4 % (11.5-14.5); WHITE BLOOD COUNT 4.3 X10'3 (4.5-11.0)
[2018-08-26 06:26] LABS: ALANINE AMINOTRANSFERASE 12 U/L (12-78); ALBUMIN 2.7 G/DL (3.4-5.0); ALBUMIN/GLOBULIN RATIO 0.9 (1.1-1.5); ALKALINE PHOSPHATASE 78 IU/L (46-116); ANION GAP 10 (8-16); ASPARTATE AMINO TRANSFERASE 13 U/L (10-37); BILIRUBIN,TOTAL 0.4 MG/DL (0.1-1.0); BLOOD UREA NITROGEN 4 MG/DL (7-18); BUN/CREATININE RATIO 6.9 (6.6-38.0); CALCIUM 8.8 MG/DL (8.5-10.1); CHLORIDE 108 MMOL/L (99-107); CREATININE 0.58 MG/DL (0.40-0.90); GLUCOSE 91 MG/DL (70-104); MAGNESIUM 1.8 MG/DL (1.5-2.4); POTASSIUM 3.9 MMOL/L (3.5-5.1); SODIUM 143 MMOL/L (135-145); TOTAL CARBON DIOXIDE 25.4 MMOL/L (24-32); TOTAL PROTEIN 5.6 G/DL (6.4-8.2); eGFR > 90 ML/MIN
[2018-08-26] MEDS: K and/or MAG REPLACEMENT MC SCH (08:00)
[2018-08-26] MEDS ORDERED: mesalamine 400 mg capsule.DR PO SCH (08:00)
[2018-08-26 08:39] VITALS: BP 108/66
[2018-08-26] MEDS: lactobacillus rhamnosus 10,000 MMU CELLS/CAPSULE PO SCH (08:50)
[2018-08-26] MEDS: docusate sod 100mg capsule PO SCH (08:51)
[2018-08-26] MEDS: enoxaparin 40mg/0.4ml syringe SQ SCH (08:51)
[2018-08-26] MEDS: mesalamine 400 mg capsule.DR PO SCH ×2 (08:57→19:17)
[2018-08-26] MEDS: oxyCODONE/APAP 10/325mg tablet PO PRN ×3 (13:00→21:23)
[2018-08-26 13:52] VITALS: BP 126/84
[2018-08-26] MEDS: nicotine 14mg patch - 24hr TD SCH (19:17)
[2018-08-26 20:00] VITALS: BP 143/85
[2018-08-26] MEDS: zolpidem 5mg tablet PO PRN (20:31)
[2018-08-26] MEDS ORDERED: polyethylene glycol 3350 17gm powd pack PO SCH (21:00)
[2018-08-26] MEDS: temazepam 15mg capsule PO PRN (21:22)
[2018-08-27] VITALS: BP 130/79
[2018-08-27] MEDS ORDERED: VANCOMYCIN LEVEL IV ONE (00:30)
[2018-08-27] MEDS: oxyCODONE/APAP 10/325mg tablet PO PRN ×4 (01:21→14:06)
[2018-08-27 07:27] VITALS: BP 129/74
[2018-08-27] MEDS: K and/or MAG REPLACEMENT MC SCH (08:00)
[2018-08-27] MEDS: enoxaparin 40mg/0.4ml syringe SQ SCH (08:59)
[2018-08-27] MEDS: mesalamine 400 mg capsule.DR PO SCH (08:59)
[2018-08-27] MEDS ORDERED: OXYC-150 PO (11:35)
[2018-08-27] MEDS ORDERED: MESA800T PO (11:35)
[2018-08-27] MEDS ORDERED: ZOLP10TA5 PO (11:35)
[2018-08-27] MEDS ORDERED: FERR325T32 PO (11:35)
[2018-08-27 12:16] VITALS: BP 135/75
== END 2018-08-27 14:09 | disposition home or self-care (01) | DRG 920 ==
LOC: ER 12:04 → ED HOLD 16:32 → EDBEDREQ 18:08 → SUR 3N 19:39
PROVIDERS: ADMIT Family Medicine; ATTEND Internal Medicine
PROC: 0W9F3ZZ Drainage of Abdominal Wall, Percutaneous Approach (ICD-10-PCS; principal; 2018-08-25)
PROC: BW211ZZ Computerized Tomography (CT Scan) of Abdomen and Pelvis using Low Osmolar Contrast (ICD-10-PCS; 2018-08-25)
DX: M96.840 Postprocedural hematoma of a musculoskeletal structure following a musculoskeletal system procedure (principal); K50.918 Crohn's disease, unspecified, with other complication; Y83.8 Other surgical procedures as the cause of abnormal reaction of the patient, or of later complication, without mention of misadventure at the time of the procedure; F12.90 Cannabis use, unspecified, uncomplicated; K57.90 Diverticulosis of intestine, part unspecified, without perforation or abscess without bleeding; R63.4 Abnormal weight loss; F17.210 Nicotine dependence, cigarettes, uncomplicated; K59.03 Drug induced constipation; G89.29 Other chronic pain; I25.10 Atherosclerotic heart disease of native coronary artery without angina pectoris; T40.605A Adverse effect of unspecified narcotics, initial encounter; Z90.49 Acquired absence of other specified parts of digestive tract; Z90.710 Acquired absence of both cervix and uterus; Z98.84 Bariatric surgery status; Z88.8 Allergy status to other drugs, medicaments and biological substances; Z79.899 Other long term (current) drug therapy; Z86.14 Personal history of Methicillin resistant Staphylococcus aureus infection; Z86.61 Personal history of infections of the central nervous system; Z86.711 Personal history of pulmonary embolism; Z87.11 Personal history of peptic ulcer disease; Y92.89 Other specified places as the place of occurrence of the external cause; Z71.6 Tobacco abuse counseling
CPT/HCPCS: 10160; 36415; 71045; 74018; 74177; 76942; 80053; 81001; 82945; 83690; 83735; 84157; 85025; 85610; 87070; 87075; 89051; 96361; 96374; 99152; 99153; 99285; G0378; J1170; J1650; J1956; J2001; J2250; J2270; J2405; J3010; J3370; J7030; Q9963; Q9967

== ENCOUNTER 2018-12-26 13:49 | Emergency (ER) | payer OTHER ==
[~2018-12-26] VITALS: Ht 160 cm; Wt 70.0 kg
[~2018-12-26 13:49] MED LIST changes: -ACYC15OI7 TP; +FERR325T32 PO; -ONDA4TAB9 PO
[2018-12-26 13:57] VITALS: BP 105/60
[2018-12-26 16:56] LABS: BASOPHILS % (AUTO) 0.4 % (0-1); EOSINOPHILS % (AUTO) 0.3 % (0-6); HEMATOCRIT 43.6 % (35.0-45.0); HEMOGLOBIN 14.3 g/dl (12.0-16.0); LYMPHOCYTES # (AUTO) 1.4 X10'3 (1.1-4.8); LYMPHOCYTES % (AUTO) 20.4 % (21-51); MEAN CORPUSCULAR HEMOGLOBIN 29.9 PG (27.0-31.0); MEAN CORPUSCULAR HGB CONC 32.8 g/dL (33.0-36.5); MEAN CORPUSCULAR VOLUME 91.2 FL (78-98); MEAN PLATELET VOLUME 9.4 FL (7.4-10.4); MONOCYTES # (AUTO) 0.4 X10'3 (0-0.9); MONOCYTES % (AUTO) 6.2 % (2-12); NEUTROPHILS % (AUTO) 72.7 % (42-75); PLATELET COUNT 276 X10'3 (140-440); RED BLOOD COUNT 4.78 X10'6 (4.20-5.60); RED CELL DISTRIBUTION WIDTH 17.9 % (11.5-14.5); WHITE BLOOD COUNT 6.8 X10'3 (4.5-11.0)
[2018-12-26 17:10] LABS: ALANINE AMINOTRANSFERASE 19 U/L (12-78); ALBUMIN 4.5 G/DL (3.4-5.0); ALBUMIN/GLOBULIN RATIO 1.4 (1.1-1.5); ALKALINE PHOSPHATASE 86 IU/L (46-116); ANION GAP 9 (8-16); ASPARTATE AMINO TRANSFERASE 16 U/L (10-37); BILIRUBIN,TOTAL 0.4 MG/DL (0.1-1.0); BLOOD UREA NITROGEN 15 MG/DL (7-18); BUN/CREATININE RATIO 19.7 (6.6-38.0); CALCIUM 9.9 MG/DL (8.5-10.1); CHLORIDE 104 MMOL/L (99-107); CREATININE 0.76 MG/DL (0.40-0.90); GLUCOSE 129 MG/DL (70-104); POTASSIUM 3.9 MMOL/L (3.5-5.1); SODIUM 140 MMOL/L (135-145); TOTAL CARBON DIOXIDE 27.3 MMOL/L (24-32); TOTAL PROTEIN 7.7 G/DL (6.4-8.2); eGFR 78 ML/MIN
[2018-12-26] MEDS ORDERED: BENZ-16 PO (17:30)
[2018-12-26] MEDS ORDERED: AZIT-63 PO ×2 (17:30→17:35)
[2018-12-26] MEDS ORDERED: ALBU8.5H8 INH (17:30)
[2018-12-26] MEDS ORDERED: PRED20TA PO (17:30)
== END 2018-12-26 17:55 | disposition home or self-care (01) ==
LOC: ER 13:49
DX: J20.9 Acute bronchitis, unspecified (principal); R21 Rash and other nonspecific skin eruption; G89.29 Other chronic pain; F12.90 Cannabis use, unspecified, uncomplicated; F17.200 Nicotine dependence, unspecified, uncomplicated; Z86.711 Personal history of pulmonary embolism; Z86.14 Personal history of Methicillin resistant Staphylococcus aureus infection; Z90.49 Acquired absence of other specified parts of digestive tract; Z98.890 Other specified postprocedural states; Z90.710 Acquired absence of both cervix and uterus; Z98.84 Bariatric surgery status; Z88.8 Allergy status to other drugs, medicaments and biological substances; Z88.6 Allergy status to analgesic agent; Z79.899 Other long term (current) drug therapy; Z87.01 Personal history of pneumonia (recurrent)
CPT/HCPCS: 36415; 71046; 80053; 83605; 85025; 87040; 93005; 99284

== ENCOUNTER 2019-01-08 10:27 | Emergency (ER) | payer OTHER ==
[~2019-01-08] VITALS: Ht 160 cm; Wt 63.6 kg
[~2019-01-08 10:27] MED LIST changes: +ALBU8.5H8 INH; +AZIT-63 PO
[2019-01-08 10:53] VITALS: BP 132/84
== END 2019-01-08 12:31 | disposition home or self-care (01) ==
LOC: ER 10:28
DX: R21 Rash and other nonspecific skin eruption (principal); G89.29 Other chronic pain; Z86.718 Personal history of other venous thrombosis and embolism; Z86.14 Personal history of Methicillin resistant Staphylococcus aureus infection; F12.90 Cannabis use, unspecified, uncomplicated; F17.200 Nicotine dependence, unspecified, uncomplicated; Z90.49 Acquired absence of other specified parts of digestive tract; Z90.710 Acquired absence of both cervix and uterus; Z88.6 Allergy status to analgesic agent; Z88.8 Allergy status to other drugs, medicaments and biological substances; Z79.899 Other long term (current) drug therapy
CPT/HCPCS: 99281

== ENCOUNTER 2019-02-15 10:59 | Emergency (ER) | payer OTHER ==
[~2019-02-15] VITALS: Ht 160 cm; Wt 65.9 kg
[2019-02-15 11:26] VITALS: BP 118/77
--- NOTE | 2019-02-15 11:47 | NUR ---
PROVIDER IN WITH PT DURING TRIAGE. AFTER PROVIDER LEFT, PT BECAME AGGITATED, STATING "I HATE THIS HOSPITAL, YOU ALL ALWAY MAKE US FEEL LIKE WE ARE NOTHING AND LOWER THAN DIRT, HOW DARE HE SAY "YOU DO NOT LOOK TOO SICK" WHEN HE HAS NO IDEA HOW I FEEL INSIDE"
[2019-02-15 12:21] LABS: URINE HCG NEGATIVE (NEG)
[2019-02-15 12:25] LABS: CLARITY,URINE CLEAR (Clear); COLOR,URINE YELLOW (Yellow); GLUCOSE, URINE NEGATIVE (Neg); KETONES,URINE NEGATIVE (Neg); LEUKOCYTE ESTERASE ,URINE SMALL (Neg); NITRITES, URINE NEGATIVE (Neg); OCCULT BLOOD,URINE NEGATIVE (Neg); PROTEIN,URINE NEGATIVE (Neg); UROBILINOGEN,URINE 0.2 E.U/dL (0.2-1.0)
[2019-02-15 12:30] LABS: UA COLLECTION TYPE CLN CATCH MIDSTREAM
[2019-02-15 12:31] LABS: BACTERIA,URINE FEW /HPF (Neg); MUCUS STRANDS FEW /LPF (Neg); RBC,URINE NONE SEEN /HPF (0-2); SQUAMOUS EPITHELIAL CELL,UR FEW /LPF (FEW); WBC,URINE 0-4 /HPF (0-4)
--- NOTE | 2019-02-15 13:02 | NUR ---
PROVIDER IN ROOM SPEAKING WITH PATIENT ABOUT URINE RESULT. PATIENT IMMEDIATELY BECAME UPSET AND LEFT WITHOUT DISCHARGE PAPERWORK, STATING SHE DID NOT NEED IT.
== END 2019-02-15 13:05 | disposition home or self-care (01) ==
LOC: ER 11:01
DX: R30.0 Dysuria (principal); G89.29 Other chronic pain; F12.90 Cannabis use, unspecified, uncomplicated; Z98.890 Other specified postprocedural states; Z86.711 Personal history of pulmonary embolism; Z87.11 Personal history of peptic ulcer disease; Z90.49 Acquired absence of other specified parts of digestive tract; Z90.710 Acquired absence of both cervix and uterus; Z98.84 Bariatric surgery status; Z88.8 Allergy status to other drugs, medicaments and biological substances; Z88.6 Allergy status to analgesic agent; Z79.899 Other long term (current) drug therapy
CPT/HCPCS: 81001; 81025; 87077; 87088; 87186; 99283

== ENCOUNTER 2019-02-19 05:17 | Emergency (ER) | payer OTHER ==
[~2019-02-19] VITALS: Ht 160 cm; Wt 64.5 kg
[2019-02-19 07:12] LABS: BASOPHILS % (AUTO) 0.7 % (0-1); EOSINOPHILS # (AUTO) 0.1 X10'3 (0-0.9); EOSINOPHILS % (AUTO) 1.3 % (0-6); HEMATOCRIT 38.6 % (35.0-45.0); LYMPHOCYTES # (AUTO) 1.1 X10'3 (1.1-4.8); LYMPHOCYTES % (AUTO) 19.1 % (21-51); MEAN CORPUSCULAR HEMOGLOBIN 31.4 PG (27.0-31.0); MEAN CORPUSCULAR HGB CONC 33.6 g/dL (33.0-36.5); MEAN CORPUSCULAR VOLUME 93.2 FL (78-98); MEAN PLATELET VOLUME 9.2 FL (7.4-10.4); MONOCYTES # (AUTO) 0.5 X10'3 (0-0.9); MONOCYTES % (AUTO) 8.8 % (2-12); NEUTROPHILS # (AUTO) 4.1 X10'3 (1.8-7.7); NEUTROPHILS % (AUTO) 70.1 % (42-75); PLATELET COUNT 244 X10'3 (140-440); RED BLOOD COUNT 4.14 X10'6 (4.20-5.60); RED CELL DISTRIBUTION WIDTH 14.8 % (11.5-14.5); WHITE BLOOD COUNT 5.9 X10'3 (4.5-11.0)
[2019-02-19] MEDS ORDERED: oxyCODONE/APAP 10/325mg tablet PO ONE (07:30)
[2019-02-19] MEDS ORDERED: ondansetron 4mg rapidly disintigrating tab PO ONE (07:30)
[2019-02-19 07:32] LABS: ALANINE AMINOTRANSFERASE 25 U/L (12-78); ALBUMIN 3.7 G/DL (3.4-5.0); ALBUMIN/GLOBULIN RATIO 1.2 (1.1-1.5); ALKALINE PHOSPHATASE 74 IU/L (46-116); ANION GAP 6 (8-16); ASPARTATE AMINO TRANSFERASE 15 U/L (10-37); BILIRUBIN,TOTAL 0.5 MG/DL (0.1-1.0); BLOOD UREA NITROGEN 12 MG/DL (7-18); BUN/CREATININE RATIO 17.1 (6.6-38.0); CALCIUM 9.5 MG/DL (8.5-10.1); CHLORIDE 108 MMOL/L (99-107); GLUCOSE 115 MG/DL (70-104); SODIUM 142 MMOL/L (135-145); TOTAL CARBON DIOXIDE 28.4 MMOL/L (24-32); TOTAL PROTEIN 6.7 G/DL (6.4-8.2); eGFR 86 ML/MIN
[2019-02-19 07:54] LABS: CLARITY,URINE SLIGHTLY CLOUDY (Clear); COLOR,URINE STRAW (Yellow); GLUCOSE, URINE NEGATIVE (Neg); KETONES,URINE NEGATIVE (Neg); LEUKOCYTE ESTERASE ,URINE NEGATIVE (Neg); NITRITES, URINE NEGATIVE (Neg); OCCULT BLOOD,URINE TRACE-INTACT (Neg); PH,URINE 5.5 (4.8-8.0); PROTEIN,URINE NEGATIVE (Neg); UROBILINOGEN,URINE 0.2 E.U/dL (0.2-1.0)
[2019-02-19 07:55] LABS: UA COLLECTION TYPE CLN CATCH MIDSTREAM
[2019-02-19 08:01] LABS: BACTERIA,URINE 1+ /HPF (Neg); MUCUS STRANDS FEW /LPF (Neg); RBC,URINE 0-2 /HPF (0-2); SQUAMOUS EPITHELIAL CELL,UR FEW /LPF (FEW); WBC,URINE 0-4 /HPF (0-4)
[2019-02-19 09:07] LABS: TROPONIN I < 0.04 NG/ML (0.0-0.05)
[2019-02-19 09:31] VITALS: BP 107/67
[2019-02-20] MEDS ORDERED: LEVO500T89 PO (14:39)
== END 2019-02-19 09:33 | disposition home or self-care (01) ==
LOC: ER 05:18
DX: R06.02 Shortness of breath (principal); K21.9 Gastro-esophageal reflux disease without esophagitis; G89.29 Other chronic pain; I25.10 Atherosclerotic heart disease of native coronary artery without angina pectoris; K50.90 Crohn's disease, unspecified, without complications; F17.200 Nicotine dependence, unspecified, uncomplicated; F12.90 Cannabis use, unspecified, uncomplicated; Z86.711 Personal history of pulmonary embolism; Z87.11 Personal history of peptic ulcer disease; Z88.8 Allergy status to other drugs, medicaments and biological substances; Z79.899 Other long term (current) drug therapy; Z90.49 Acquired absence of other specified parts of digestive tract; Z98.890 Other specified postprocedural states; Z90.710 Acquired absence of both cervix and uterus
CPT/HCPCS: 36415; 71045; 80053; 81001; 83880; 84484; 85025; 93005; 99284

== ENCOUNTER 2019-06-15 11:26 | Emergency (ER) | payer OTHER ==
[~2019-06-15] VITALS: Ht 160 cm; Wt 58.1 kg
[2019-06-15 11:45] VITALS: BP 132/73
[2019-06-15 12:06] LABS: CLARITY,URINE SLIGHTLY CLOUDY (Clear); COLOR,URINE YELLOW (Yellow); GLUCOSE, URINE NEGATIVE (Neg); KETONES,URINE NEGATIVE (Neg); LEUKOCYTE ESTERASE ,URINE NEGATIVE (Neg); NITRITES, URINE NEGATIVE (Neg); OCCULT BLOOD,URINE TRACE-INTACT (Neg); PROTEIN,URINE NEGATIVE (Neg); UROBILINOGEN,URINE 0.2 E.U/dL (0.2-1.0)
[2019-06-15 12:12] LABS: UA COLLECTION TYPE CLN CATCH MIDSTREAM
[2019-06-15 12:13] LABS: SQUAMOUS EPITHELIAL CELL,UR MODERATE /LPF (FEW)
[2019-06-15 12:14] LABS: BACTERIA,URINE 1+ /HPF (Neg); CAL OXALATE CRYSTALS 4+ /HPF (NEGATIVE); RBC,URINE 0-2 /HPF (0-2); WBC,URINE 0-4 /HPF (0-4)
[2019-06-15 12:16] LABS: CELLULAR CAST 0-4 /LPF (NEGATIVE)
--- NOTE | 2019-06-15 13:23 | NUR ---
Pt stated that she had been waiting for "two hours" and that she was leaving. RN and myself attempted to talk pt into staying, pt refused and left.
== END 2019-06-15 11:58 | disposition home or self-care (01) ==
LOC: ER 11:27
DX: N39.0 Urinary tract infection, site not specified (principal); Z53.21 Procedure and treatment not carried out due to patient leaving prior to being seen by health care provider
CPT/HCPCS: 81001

== ENCOUNTER 2019-08-16 08:59 | Emergency (ER) | payer OTHER ==
[~2019-08-16] VITALS: Ht 160 cm; Wt 50.0 kg
[2019-08-16] MEDS ORDERED: famotidine/PF 10 mg/ml inj IV ONE (09:15)
[2019-08-16] MEDS ORDERED: normal saline 1000ML IV soln IVB ONE (09:15)
[2019-08-16] MEDS ORDERED: pantoprazole 40 MG vial IV ONE (09:15)
[2019-08-16] MEDS ORDERED: ondansetron/PF 4mg/2ml inj IV ONE (09:15)
[2019-08-16] MEDS ORDERED: sucralfate 1gm/10ml UD suspension PO ONE (09:15)
[2019-08-16] MEDS ORDERED: proCHLORperazine 10 MG/2 ml inj IV ONE (09:30)
[2019-08-16 09:36] LABS: BASOPHILS % (AUTO) 0.6 % (0-1); EOSINOPHILS % (AUTO) 0.2 % (0-6); HEMATOCRIT 33.8 % (35.0-45.0); HEMOGLOBIN 11.7 g/dl (12.0-16.0); LYMPHOCYTES # (AUTO) 1.6 X10'3 (1.1-4.8); LYMPHOCYTES % (AUTO) 22.8 % (21-51); MEAN CORPUSCULAR HEMOGLOBIN 31.4 PG (27.0-31.0); MEAN CORPUSCULAR HGB CONC 34.5 g/dL (33.0-36.5); MEAN PLATELET VOLUME 9.2 FL (7.4-10.4); MONOCYTES # (AUTO) 0.6 X10'3 (0-0.9); MONOCYTES % (AUTO) 8.6 % (2-12); NEUTROPHILS # (AUTO) 4.8 X10'3 (1.8-7.7); NEUTROPHILS % (AUTO) 67.8 % (42-75); PLATELET COUNT 278 X10'3 (140-440); RED BLOOD COUNT 3.72 X10'6 (4.20-5.60); RED CELL DISTRIBUTION WIDTH 15.3 % (11.5-14.5); WHITE BLOOD COUNT 7.1 X10'3 (4.5-11.0)
[2019-08-16 09:51] LABS: ANION GAP 9 (8-16); CHLORIDE 107 MMOL/L (99-107); GLUCOSE 112 MG/DL (70-104); POTASSIUM 3.3 MMOL/L (3.5-5.1); SODIUM 141 MMOL/L (135-145); TOTAL CARBON DIOXIDE 24.9 MMOL/L (24-32)
[2019-08-16 09:52] LABS: ALANINE AMINOTRANSFERASE 23 U/L (12-78); ALBUMIN 3.6 G/DL (3.4-5.0); ALBUMIN/GLOBULIN RATIO 1.4 (1.1-1.5); ALKALINE PHOSPHATASE 54 IU/L (46-116); ASPARTATE AMINO TRANSFERASE 16 U/L (10-37); BILIRUBIN,TOTAL 0.5 MG/DL (0.1-1.0); BLOOD UREA NITROGEN 11 MG/DL (7-18); BUN/CREATININE RATIO 12.5 (6.6-38.0); CALCIUM 8.9 MG/DL (8.5-10.1); CREATININE 0.88 MG/DL (0.40-0.90); TOTAL PROTEIN 6.2 G/DL (6.4-8.2); eGFR 66 ML/MIN
[2019-08-16 09:55] LABS: LIPASE 68 U/L (73-393); TROPONIN I < 0.04 NG/ML (0.0-0.05)
[2019-08-16] MEDS ORDERED: acetaminophen 325mg tablet PO ONE (09:55)
[2019-08-16] MEDS ORDERED: PANT-47 PO (10:10)
[2019-08-16] MEDS ORDERED: LORazepam 2 mg/ml vial IV ONE (10:10)
[2019-08-16] MEDS ORDERED: PHE25R PR (10:10)
[2019-08-16 10:27] VITALS: BP 114/71
[2019-08-16 10:43] LABS: URINE HCG NEGATIVE (NEG)
[2019-08-16 10:45] LABS: CLARITY,URINE SLIGHTLY CLOUDY (Clear); COLOR,URINE YELLOW (Yellow); GLUCOSE, URINE NEGATIVE (Neg); KETONES,URINE 15 mg/dl (Neg); LEUKOCYTE ESTERASE ,URINE NEGATIVE (Neg); NITRITES, URINE NEGATIVE (Neg); OCCULT BLOOD,URINE NEGATIVE (Neg); PH,URINE 5.5 (4.8-8.0); PROTEIN,URINE NEGATIVE (Neg); UROBILINOGEN,URINE 0.2 E.U/dL (0.2-1.0)
[2019-08-16 10:49] LABS: UA COLLECTION TYPE CLN CATCH MIDSTREAM
[2019-08-16 10:57] LABS: MUCUS STRANDS MANY /LPF (Neg); SQUAMOUS EPITHELIAL CELL,UR MANY /LPF (FEW); TRANSITIONAL EPI CELLS,URINE MODERATE /HPF
[2019-08-16 10:58] LABS: BACTERIA,URINE FEW /HPF (Neg); RBC,URINE 0-2 /HPF (0-2); RENAL CELLS, URINE FEW /HPF; WBC,URINE 0-4 /HPF (0-4)
== END 2019-08-16 10:28 | disposition home or self-care (01) ==
LOC: ER 09:00
DX: R11.2 Nausea with vomiting, unspecified (principal); R13.13 Dysphagia, pharyngeal phase; R10.13 Epigastric pain; R10.33 Periumbilical pain; R63.4 Abnormal weight loss; I25.10 Atherosclerotic heart disease of native coronary artery without angina pectoris; K21.9 Gastro-esophageal reflux disease without esophagitis; F12.90 Cannabis use, unspecified, uncomplicated; Z88.8 Allergy status to other drugs, medicaments and biological substances; Z79.899 Other long term (current) drug therapy; Z79.2 Long term (current) use of antibiotics; Z87.19 Personal history of other diseases of the digestive system; Z87.11 Personal history of peptic ulcer disease; Z90.49 Acquired absence of other specified parts of digestive tract; Z98.84 Bariatric surgery status; Z98.890 Other specified postprocedural states
CPT/HCPCS: 36415; 80053; 81001; 81025; 83690; 84484; 85025; 96361; 96374; 96375; 99283; C9113; J0780; J2060; J3490; J7030

== ENCOUNTER 2020-01-30 20:08 | Emergency (ER) | payer MEDICARE, OTHER ==
[~2020-01-30] VITALS: Ht 160 cm; Wt 53.6 kg
[~2020-01-30 20:08] MED LIST changes: +PANT-47 PO; +PHE25R PR
[2020-01-30 21:05] LABS: CLARITY,URINE CLEAR (Clear); COLOR,URINE YELLOW (Yellow); GLUCOSE, URINE NEGATIVE (Neg); KETONES,URINE NEGATIVE (Neg); LEUKOCYTE ESTERASE ,URINE TRACE (Neg); NITRITES, URINE NEGATIVE (Neg); OCCULT BLOOD,URINE SMALL (Neg); PROTEIN,URINE NEGATIVE (Neg); UROBILINOGEN,URINE 0.2 E.U/dL (0.2-1.0)
[2020-01-30 21:06] LABS: UA COLLECTION TYPE CLN CATCH MIDSTREAM
[2020-01-30] MEDS ORDERED: PHEN1SUP96 PR (21:11)
[2020-01-30] MEDS ORDERED: POLY17PO10 PO (21:11)
[2020-01-30 21:15] LABS: BACTERIA,URINE 3+ /HPF (Neg); MUCUS STRANDS FEW /LPF (Neg); SQUAMOUS EPITHELIAL CELL,UR MODERATE /LPF (FEW); WBC,URINE 0-4 /HPF (0-4)
[2020-01-30] MEDS ORDERED: HYDROcodone/acetaminophen 5mg/325mg tablet PO ONE (21:20)
[2020-01-30] MEDS ORDERED: ondansetron 4mg rapidly disintigrating tab PO ONE (21:20)
[2020-01-30] MEDS ORDERED: NITR100C6 PO (21:21)
[2020-01-30 21:44] VITALS: BP 125/74
[2020-01-31] MEDS ORDERED: ONDA4TAB6 PO (10:13)
== END 2020-01-30 21:45 | disposition home or self-care (01) ==
LOC: ER 20:08
DX: K64.9 Unspecified hemorrhoids (principal); K62.89 Other specified diseases of anus and rectum; K21.9 Gastro-esophageal reflux disease without esophagitis; F12.90 Cannabis use, unspecified, uncomplicated; R51 Headache; N39.0 Urinary tract infection, site not specified; G89.29 Other chronic pain; Z86.14 Personal history of Methicillin resistant Staphylococcus aureus infection; Z86.711 Personal history of pulmonary embolism; Z98.61 Coronary angioplasty status; Z90.49 Acquired absence of other specified parts of digestive tract; Z87.59 Personal history of other complications of pregnancy, childbirth and the puerperium; Z95.1 Presence of aortocoronary bypass graft; Z88.8 Allergy status to other drugs, medicaments and biological substances; Z79.2 Long term (current) use of antibiotics; Z79.899 Other long term (current) drug therapy
CPT/HCPCS: 81001; 87077; 87088; 87186; 99283; 99284

== ENCOUNTER 2020-01-31 09:13 | Emergency (ER) | payer MEDICARE ==
[~2020-01-31] VITALS: Ht 160 cm; Wt 53.6 kg
[~2020-01-31 09:13] MED LIST changes: +NITR100C6 PO; +PHEN1SUP96 PR; +POLY17PO10 PO
[2020-01-31] MEDS ORDERED: normal saline 1000ML IV soln IVB ONE (09:30)
[2020-01-31] MEDS ORDERED: ondansetron/PF 4mg/2ml inj IV ONE ×2 (09:30→10:20)
[2020-01-31] MEDS ORDERED: LORazepam 2 mg/ml vial IV ONE (09:30)
[2020-01-31 09:57] LABS: BASOPHILS % (AUTO) 0.1 % (0-1); EOSINOPHILS % (AUTO) 0.1 % (0-6); HEMATOCRIT 35.3 % (35.0-45.0); HEMOGLOBIN 11.9 g/dl (12.0-16.0); LYMPHOCYTES # (AUTO) 1.4 X10'3 (1.1-4.8); MEAN CORPUSCULAR HEMOGLOBIN 30.7 PG (27.0-31.0); MEAN CORPUSCULAR HGB CONC 33.7 g/dL (33.0-36.5); MEAN PLATELET VOLUME 8.6 FL (7.4-10.4); MONOCYTES # (AUTO) 0.5 X10'3 (0-0.9); MONOCYTES % (AUTO) 5.7 % (2-12); NEUTROPHILS # (AUTO) 6.7 X10'3 (1.8-7.7); NEUTROPHILS % (AUTO) 78.1 % (42-75); PLATELET COUNT 350 X10'3 (140-440); RED BLOOD COUNT 3.88 X10'6 (4.20-5.60); RED CELL DISTRIBUTION WIDTH 13.5 % (11.5-14.5); WHITE BLOOD COUNT 8.6 X10'3 (4.5-11.0)
[2020-01-31 10:05] LABS: ALANINE AMINOTRANSFERASE 24 U/L (12-78); ALBUMIN/GLOBULIN RATIO 1.3 (1.1-1.5); ALKALINE PHOSPHATASE 72 IU/L (46-116); ANION GAP 12 (8-16); ASPARTATE AMINO TRANSFERASE 18 U/L (10-37); BILIRUBIN,TOTAL 0.3 MG/DL (0.1-1.0); BLOOD UREA NITROGEN 8 MG/DL (7-18); BUN/CREATININE RATIO 10.3 (6.6-38.0); CALCIUM 9.1 MG/DL (8.5-10.1); CHLORIDE 101 MMOL/L (99-107); CREATININE 0.78 MG/DL (0.40-0.90); GLUCOSE 129 MG/DL (70-104); LIPASE 79 U/L (73-393); POTASSIUM 3.5 MMOL/L (3.5-5.1); SODIUM 138 MMOL/L (135-145); TOTAL CARBON DIOXIDE 24.8 MMOL/L (24-32); TOTAL PROTEIN 7.2 G/DL (6.4-8.2); eGFR 76 ML/MIN
[2020-01-31 10:10] LABS: CLARITY,URINE CLOUDY (Clear); COLOR,URINE YELLOW (Yellow); GLUCOSE, URINE NEGATIVE (Neg); KETONES,URINE NEGATIVE (Neg); LEUKOCYTE ESTERASE ,URINE NEGATIVE (Neg); NITRITES, URINE POSITIVE (Neg); OCCULT BLOOD,URINE MODERATE (Neg); PROTEIN,URINE TRACE mg/dl (Neg); UROBILINOGEN,URINE 0.2 E.U/dL (0.2-1.0)
[2020-01-31 10:13] LABS: UA COLLECTION TYPE CLN CATCH MIDSTREAM
[2020-01-31] MEDS ORDERED: ONDA4TAB6 PO (10:13)
[2020-01-31 10:16] LABS: BACTERIA,URINE 4+ /HPF (Neg); RBC,URINE 0-2 /HPF (0-2); SQUAMOUS EPITHELIAL CELL,UR FEW /LPF (FEW)
[2020-01-31] MEDS ORDERED: HYDROcodone/acetaminophen 5mg/325mg tablet PO ONE (10:20)
[2020-01-31 10:23] LABS: MUCUS STRANDS MODERATE /LPF (Neg)
[2020-01-31 11:11] VITALS: BP 147/75
== END 2020-01-31 11:13 | disposition home or self-care (01) ==
LOC: ER 09:14
DX: E86.0 Dehydration (principal); R11.0 Nausea; I25.10 Atherosclerotic heart disease of native coronary artery without angina pectoris; K21.9 Gastro-esophageal reflux disease without esophagitis; F12.90 Cannabis use, unspecified, uncomplicated; G89.29 Other chronic pain; Z86.711 Personal history of pulmonary embolism; Z86.14 Personal history of Methicillin resistant Staphylococcus aureus infection; Z98.61 Coronary angioplasty status; Z90.49 Acquired absence of other specified parts of digestive tract; Z98.890 Other specified postprocedural states; Z90.710 Acquired absence of both cervix and uterus; Z88.8 Allergy status to other drugs, medicaments and biological substances; Z79.2 Long term (current) use of antibiotics; Z79.899 Other long term (current) drug therapy
CPT/HCPCS: 36415; 80053; 81001; 83690; 85025; 87077; 87088; 87186; 96361; 96374; 96375; 96376; 99284; J2060; J2405; J7030

== ENCOUNTER 2020-02-29 12:45 | Emergency (ER) | payer MEDICARE ==
[~2020-02-29] VITALS: Ht 160 cm; Wt 60.0 kg
[~2020-02-29 12:45] MED LIST changes: +MULT-620 PO; -MULT1TAB74 PO; +ONDA4TAB6 PO
[2020-02-29 12:48] VITALS: BP 161/83
[2020-02-29] MEDS ORDERED: haloperidol lactate 5mg/ml inj IM ONE (14:30)
[2020-02-29] MEDS ORDERED: iohexol 300mg/ml 100ml inj. ONE (14:52)
--- NOTE | 2020-02-29 15:37 | NUR ---
Lab draw attempted by business practices supervisor and IV attempt by Olivia unsuccessfully. Patient became anxious and states that she cannot stay because, "I was poked and poked and poked yesterday too. I just can't do it guys." Attempted to verbally de-escalate the patient and reassure her that after we get IV access we can try to make her feel better. Patient stated she wanted to get up and walk around for a moment. On return to her room she was dressing herself and stated she was going to go home because she had a bowel movemen and if things got worse she would return. Risk including explained to the patient but she is adamant that she leave. Dr. Castellanos notified but the patient would not wait for him to speak with her. Re-iterated that the patient could without finishing her work up and that she could not drive after having haldol. Patient leaves with her coming to drive her home.
== END 2020-02-29 15:38 | disposition left against medical advice (07) ==
LOC: ER 12:46
DX: K50.90 Crohn's disease, unspecified, without complications (principal); K59.00 Constipation, unspecified; I25.10 Atherosclerotic heart disease of native coronary artery without angina pectoris; K21.9 Gastro-esophageal reflux disease without esophagitis; F12.90 Cannabis use, unspecified, uncomplicated; G89.29 Other chronic pain; Z86.14 Personal history of Methicillin resistant Staphylococcus aureus infection; Z86.711 Personal history of pulmonary embolism; Z98.61 Coronary angioplasty status; Z90.49 Acquired absence of other specified parts of digestive tract; Z90.710 Acquired absence of both cervix and uterus; Z98.890 Other specified postprocedural states; Z88.8 Allergy status to other drugs, medicaments and biological substances; Z79.2 Long term (current) use of antibiotics; Z79.899 Other long term (current) drug therapy
CPT/HCPCS: 93005; 96372; 99284; J1630; Q9967

== ENCOUNTER 2020-02-29 17:35 | Emergency (ER) | payer MEDICARE ==
[~2020-02-29] VITALS: Ht 160 cm; Wt 56.8 kg
[2020-02-29] MEDS ORDERED: benztropine 1 mg/ml 2ml ampule IM ONE (17:50)
--- NOTE | 2020-02-29 17:50 | NUR ---
Spoke to Jeffry Huizar regarding patient's symptoms. 2mg cogentin IM ordered.
[2020-02-29] MEDS ORDERED: LORazepam 2 mg/ml vial IM ONE (18:50)
[2020-02-29 21:47] VITALS: BP 127/78
== END 2020-02-29 21:49 | disposition home or self-care (01) ==
LOC: ER 17:36
DX: F41.9 Anxiety disorder, unspecified (principal); R10.9 Unspecified abdominal pain; I25.10 Atherosclerotic heart disease of native coronary artery without angina pectoris; K21.9 Gastro-esophageal reflux disease without esophagitis; G89.29 Other chronic pain; F12.90 Cannabis use, unspecified, uncomplicated; Z86.711 Personal history of pulmonary embolism; Z86.14 Personal history of Methicillin resistant Staphylococcus aureus infection; Z98.61 Coronary angioplasty status; Z90.49 Acquired absence of other specified parts of digestive tract; Z98.0 Intestinal bypass and anastomosis status; Z90.710 Acquired absence of both cervix and uterus; Z98.890 Other specified postprocedural states; Z88.8 Allergy status to other drugs, medicaments and biological substances; Z79.82 Long term (current) use of aspirin
CPT/HCPCS: 74176; 96372; 99284; J0515; J2060

== ENCOUNTER 2020-04-06 11:06 | Emergency (ER) | payer MEDICARE ==
[~2020-04-06] VITALS: Ht 160 cm; Wt 60.0 kg
[~2020-04-06 11:06] MED LIST changes: -POLY17PO10 PO
[2020-04-06 11:59] LABS: BASOPHILS % (AUTO) 0.5 % (0-1); EOSINOPHILS % (AUTO) 0 % (0-6); HEMATOCRIT 34.4 % (35.0-45.0); HEMOGLOBIN 11.5 g/dl (12.0-16.0); LYMPHOCYTES # (AUTO) 1.1 X10'3 (1.1-4.8); LYMPHOCYTES % (AUTO) 12.4 % (21-51); MEAN CORPUSCULAR HEMOGLOBIN 29.5 PG (27.0-31.0); MEAN CORPUSCULAR HGB CONC 33.4 g/dL (33.0-36.5); MEAN CORPUSCULAR VOLUME 88.2 FL (78-98); MEAN PLATELET VOLUME 8.5 FL (7.4-10.4); MONOCYTES # (AUTO) 0.4 X10'3 (0-0.9); MONOCYTES % (AUTO) 4.5 % (2-12); NEUTROPHILS % (AUTO) 82.6 % (42-75); PLATELET COUNT 358 X10'3 (140-440); RED CELL DISTRIBUTION WIDTH 15.6 % (11.5-14.5); WHITE BLOOD COUNT 8.5 X10'3 (4.5-11.0)
[2020-04-06 12:14] LABS: ALANINE AMINOTRANSFERASE 17 U/L (12-78); ALBUMIN 3.7 G/DL (3.4-5.0); ALBUMIN/GLOBULIN RATIO 1.2 (1.1-1.5); ALKALINE PHOSPHATASE 75 IU/L (46-116); AMYLASE 49 U/L (25-115); ANION GAP 12 (8-16); ASPARTATE AMINO TRANSFERASE 15 U/L (10-37); BILIRUBIN,TOTAL 0.2 MG/DL (0.1-1.0); BLOOD UREA NITROGEN 13 MG/DL (7-18); BUN/CREATININE RATIO 15.1 (6.6-38.0); CALCIUM 8.8 MG/DL (8.5-10.1); CHLORIDE 108 MMOL/L (99-107); CREATININE 0.86 MG/DL (0.40-0.90); GLUCOSE 130 MG/DL (70-104); LIPASE 85 U/L (73-393); POTASSIUM 3.8 MMOL/L (3.5-5.1); SODIUM 142 MMOL/L (135-145); TOTAL CARBON DIOXIDE 22.3 MMOL/L (24-32); TOTAL PROTEIN 6.9 G/DL (6.4-8.2); eGFR 68 ML/MIN
[2020-04-06] MEDS ORDERED: ondansetron/PF 4mg/2ml inj IV ONE (12:40)
[2020-04-06] MEDS ORDERED: morphine 4 MG/ML inj SYRINge IV ONE (12:40)
[2020-04-06] MEDS ORDERED: morphine 4 MG/ML inj SYRINge IM ONE ×2 (13:05→15:00)
[2020-04-06] MEDS ORDERED: ondansetron/PF 4mg/2ml inj IM ONE (13:05)
--- NOTE | 2020-04-06 14:31 | NUR ---
Yang RN: Patient ambulated to restroom with steady gait. urine sample collected and sent to lab.
--- NOTE | 2020-04-06 15:09 | NUR ---
PT AMBULATED TO BATHROOM WITH OUT DIFFICULITY. PT MEDICATED WITH MORPHINE 4MG IM FOR 03/31 PAIN. PT CALLED TO PICK HER UP AND HE IS ON HIS WAY
[2020-04-06 15:16] VITALS: BP 126/62
[2020-04-06 15:16] LABS: CLARITY,URINE SLIGHTLY CLOUDY (Clear); COLOR,URINE YELLOW (Yellow); GLUCOSE, URINE NEGATIVE (Neg); KETONES,URINE 15 mg/dl (Neg); LEUKOCYTE ESTERASE ,URINE NEGATIVE (Neg); NITRITES, URINE NEGATIVE (Neg); OCCULT BLOOD,URINE SMALL (Neg); PROTEIN,URINE NEGATIVE (Neg); UROBILINOGEN,URINE 0.2 E.U/dL (0.2-1.0)
[2020-04-06 15:29] LABS: UA COLLECTION TYPE CLN CATCH MIDSTREAM; WBC,URINE 0-4 /HPF (0-4)
[2020-04-06 15:30] LABS: BACTERIA,URINE 3+ /HPF (Neg); SQUAMOUS EPITHELIAL CELL,UR FEW /LPF (FEW)
== END 2020-04-06 15:18 | disposition home or self-care (01) ==
LOC: ER 11:06
DX: R10.9 Unspecified abdominal pain (principal); I25.10 Atherosclerotic heart disease of native coronary artery without angina pectoris; K21.9 Gastro-esophageal reflux disease without esophagitis; G89.29 Other chronic pain; F12.90 Cannabis use, unspecified, uncomplicated; Z95.5 Presence of coronary angioplasty implant and graft; Z90.49 Acquired absence of other specified parts of digestive tract; Z98.84 Bariatric surgery status; Z86.711 Personal history of pulmonary embolism; Z86.14 Personal history of Methicillin resistant Staphylococcus aureus infection; Z87.11 Personal history of peptic ulcer disease; Z88.8 Allergy status to other drugs, medicaments and biological substances; Z79.2 Long term (current) use of antibiotics; Z79.899 Other long term (current) drug therapy
CPT/HCPCS: 36415; 76700; 80053; 81001; 82150; 83690; 85025; 87077; 87088; 87186; 96372; 99284; J2270; J2405

== ENCOUNTER 2020-04-10 10:58 | Emergency (ER) | payer MEDICARE ==
[~2020-04-10] VITALS: Ht 160 cm; Wt 62.9 kg
[2020-04-10] MEDS ORDERED: LORazepam 2 mg/ml vial IV ONE (12:00)
[2020-04-10] MEDS ORDERED: ondansetron/PF 4mg/2ml inj IV ONE (12:00)
[2020-04-10 12:03] LABS: BASOPHILS % (AUTO) 0.5 % (0-1); EOSINOPHILS % (AUTO) 0.5 % (0-6); HEMATOCRIT 34.2 % (35.0-45.0); HEMOGLOBIN 11.5 g/dl (12.0-16.0); LYMPHOCYTES # (AUTO) 1.6 X10'3 (1.1-4.8); LYMPHOCYTES % (AUTO) 20.6 % (21-51); MEAN CORPUSCULAR HEMOGLOBIN 29.5 PG (27.0-31.0); MEAN CORPUSCULAR HGB CONC 33.5 g/dL (33.0-36.5); MONOCYTES # (AUTO) 0.4 X10'3 (0-0.9); MONOCYTES % (AUTO) 5.6 % (2-12); NEUTROPHILS # (AUTO) 5.5 X10'3 (1.8-7.7); NEUTROPHILS % (AUTO) 72.8 % (42-75); PLATELET COUNT 377 X10'3 (140-440); RED BLOOD COUNT 3.89 X10'6 (4.20-5.60); WHITE BLOOD COUNT 7.6 X10'3 (4.5-11.0)
[2020-04-10 12:10] LABS: CLARITY,URINE SLIGHTLY CLOUDY (Clear); COLOR,URINE YELLOW (Yellow); GLUCOSE, URINE NEGATIVE (Neg); KETONES,URINE NEGATIVE (Neg); LEUKOCYTE ESTERASE ,URINE NEGATIVE (Neg); NITRITES, URINE NEGATIVE (Neg); OCCULT BLOOD,URINE TRACE-INTACT (Neg); PROTEIN,URINE NEGATIVE (Neg); UROBILINOGEN,URINE 0.2 E.U/dL (0.2-1.0)
[2020-04-10 12:14] LABS: UA COLLECTION TYPE CLN CATCH MIDSTREAM
[2020-04-10 12:20] LABS: ALANINE AMINOTRANSFERASE 20 U/L (12-78); ALBUMIN 3.7 G/DL (3.4-5.0); ALBUMIN/GLOBULIN RATIO 1.1 (1.1-1.5); ALKALINE PHOSPHATASE 68 IU/L (46-116); ANION GAP 9 (8-16); ASPARTATE AMINO TRANSFERASE 16 U/L (10-37); BILIRUBIN,TOTAL 0.3 MG/DL (0.1-1.0); BLOOD UREA NITROGEN 15 MG/DL (7-18); BUN/CREATININE RATIO 17.2 (6.6-38.0); CHLORIDE 104 MMOL/L (99-107); CREATININE 0.87 MG/DL (0.40-0.90); GLUCOSE 193 MG/DL (70-104); POTASSIUM 3.9 MMOL/L (3.5-5.1); SODIUM 140 MMOL/L (135-145); TOTAL CARBON DIOXIDE 27.3 MMOL/L (24-32); TOTAL PROTEIN 7.1 G/DL (6.4-8.2); eGFR 67 ML/MIN
[2020-04-10 12:35] LABS: BACTERIA,URINE 1+ /HPF (Neg)
[2020-04-10 12:36] LABS: MUCUS STRANDS FEW /LPF (Neg); RBC,URINE 0-2 /HPF (0-2); SQUAMOUS EPITHELIAL CELL,UR MODERATE /LPF (FEW)
[2020-04-10 12:38] LABS: AMORPHOUS PHOSPHATES 3+; WBC CLUMPS,URINE FEW /HPF (NEGATIVE)
[2020-04-10] MEDS ORDERED: METR-159 PO (13:48)
[2020-04-10] MEDS ORDERED: oxyCODONE/APAP 10/325mg tablet PO ONE (14:00)
[2020-04-10 14:07] VITALS: BP 125/71
== END 2020-04-10 14:09 | disposition home or self-care (01) ==
LOC: ER 10:59
DX: R10.9 Unspecified abdominal pain (principal); R11.0 Nausea; R50.9 Fever, unspecified; I25.10 Atherosclerotic heart disease of native coronary artery without angina pectoris; K21.9 Gastro-esophageal reflux disease without esophagitis; F12.90 Cannabis use, unspecified, uncomplicated; G89.29 Other chronic pain; Z86.14 Personal history of Methicillin resistant Staphylococcus aureus infection; Z86.711 Personal history of pulmonary embolism; Z98.61 Coronary angioplasty status; Z90.49 Acquired absence of other specified parts of digestive tract; Z95.1 Presence of aortocoronary bypass graft; Z90.710 Acquired absence of both cervix and uterus; Z98.890 Other specified postprocedural states; Z88.8 Allergy status to other drugs, medicaments and biological substances; Z79.2 Long term (current) use of antibiotics; Z79.899 Other long term (current) drug therapy
CPT/HCPCS: 36415; 74176; 80053; 81001; 84145; 85025; 87077; 87088; 87186; 96374; 96375; 99284; J2060; J2405

== ENCOUNTER 2020-08-09 12:54 | Emergency (ER) | payer MEDICARE ==
[~2020-08-09] VITALS: Ht 162.6 cm; Wt 60.4 kg
[2020-08-09 13:15] VITALS: BP 116/76
[2020-08-09] MEDS ORDERED: ondansetron/PF 4mg/2ml inj IV ONE (13:25)
[2020-08-09] MEDS ORDERED: normal saline 1000ML IV soln IVB ONE (13:25)
[2020-08-09] MEDS ORDERED: methylPREDNISolone sod succ 125mg/2ml vial IV ONE (13:25)
[2020-08-09] MEDS ORDERED: famotidine/PF 10 mg/ml inj IV ONE (13:25)
[2020-08-09 14:12] LABS: BASOPHILS # (AUTO) 0.1 X10'3 (0-0.2); BASOPHILS % (AUTO) 0.9 % (0-1); EOSINOPHILS % (AUTO) 0.4 % (0-6); HEMATOCRIT 37.7 % (35.0-45.0); HEMOGLOBIN 12.5 g/dl (12.0-16.0); LYMPHOCYTES # (AUTO) 1.9 X10'3 (1.1-4.8); LYMPHOCYTES % (AUTO) 22.2 % (21-51); MEAN CORPUSCULAR HGB CONC 33.2 g/dL (33.0-36.5); MEAN CORPUSCULAR VOLUME 87.4 FL (78-98); MEAN PLATELET VOLUME 8.4 FL (7.4-10.4); MONOCYTES # (AUTO) 0.6 X10'3 (0-0.9); MONOCYTES % (AUTO) 6.7 % (2-12); NEUTROPHILS # (AUTO) 5.9 X10'3 (1.8-7.7); NEUTROPHILS % (AUTO) 69.8 % (42-75); PLATELET COUNT 429 X10'3 (140-440); RED BLOOD COUNT 4.32 X10'6 (4.20-5.60); RED CELL DISTRIBUTION WIDTH 17.3 % (11.5-14.5); WHITE BLOOD COUNT 8.5 X10'3 (4.5-11.0)
[2020-08-09 14:23] LABS: ALANINE AMINOTRANSFERASE 23 U/L (12-78); ALBUMIN 4.1 G/DL (3.4-5.0); ALBUMIN/GLOBULIN RATIO 1.2 (1.1-1.5); ALKALINE PHOSPHATASE 83 IU/L (46-116); ANION GAP 8 (8-16); ASPARTATE AMINO TRANSFERASE 18 U/L (10-37); BILIRUBIN,TOTAL 0.2 MG/DL (0.1-1.0); BLOOD UREA NITROGEN 14 MG/DL (7-18); BUN/CREATININE RATIO 15.7 (6.6-38.0); CALCIUM 9.8 MG/DL (8.5-10.1); CHLORIDE 104 MMOL/L (99-107); CREATININE 0.89 MG/DL (0.40-0.90); GLUCOSE 118 MG/DL (70-104); POTASSIUM 4.4 MMOL/L (3.5-5.1); SODIUM 142 MMOL/L (135-145); TOTAL CARBON DIOXIDE 29.7 MMOL/L (24-32); TOTAL PROTEIN 7.5 G/DL (6.4-8.2); eGFR 65 ML/MIN
[2020-08-09] MEDS ORDERED: PRED10TA23 PO (15:31)
[2020-08-09 15:39] LABS: CLARITY,URINE CLOUDY (Clear); COLOR,URINE YELLOW (Yellow); GLUCOSE, URINE NEGATIVE (Neg); KETONES,URINE NEGATIVE (Neg); LEUKOCYTE ESTERASE ,URINE TRACE (Neg); NITRITES, URINE POSITIVE (Neg); OCCULT BLOOD,URINE TRACE-INTACT (Neg); PH,URINE 7.5 (4.8-8.0); PROTEIN,URINE NEGATIVE (Neg); UROBILINOGEN,URINE 0.2 E.U/dL (0.2-1.0)
[2020-08-09 15:43] LABS: UA COLLECTION TYPE CLN CATCH MIDSTREAM
[2020-08-09 15:45] LABS: RBC,URINE 0-2 /HPF (0-2); SQUAMOUS EPITHELIAL CELL,UR FEW /LPF (FEW); WBC,URINE 0-4 /HPF (0-4)
[2020-08-09 15:46] LABS: AMORPHOUS PHOSPHATES 1+; BACTERIA,URINE 3+ /HPF (Neg)
[2020-08-09] MEDS: morphine 4 MG/ML inj SYRINge IV PRN ×2 (16:35→18:08)
[2020-08-09] MEDS ORDERED: LORazepam 1 MG tablet PO ONE (17:00)
== END 2020-08-09 18:24 | disposition home or self-care (01) ==
LOC: ER 12:55
DX: R10.9 Unspecified abdominal pain (principal); G89.29 Other chronic pain; R11.0 Nausea; I25.10 Atherosclerotic heart disease of native coronary artery without angina pectoris; K21.9 Gastro-esophageal reflux disease without esophagitis; Z87.11 Personal history of peptic ulcer disease; Z95.5 Presence of coronary angioplasty implant and graft; Z90.49 Acquired absence of other specified parts of digestive tract; Z98.890 Other specified postprocedural states; Z98.84 Bariatric surgery status; Z86.14 Personal history of Methicillin resistant Staphylococcus aureus infection; Z86.711 Personal history of pulmonary embolism; Z88.8 Allergy status to other drugs, medicaments and biological substances; Z79.899 Other long term (current) drug therapy; Z79.2 Long term (current) use of antibiotics
CPT/HCPCS: 36415; 80053; 81001; 85025; 87077; 87088; 87186; 96361; 96374; 96375; 96376; 99284; J2270; J2405; J2930; J3490; J7030

== ENCOUNTER → 2020-10-05 | Emergency (ER) | payer MEDICARE ==
[~2020-10-05] VITALS: Ht 162.6 cm; Wt 63.6 kg
[~2020-10-05] MED LIST changes: +CEPH250T PO; +morphine 4 MG/ML inj SYRINge IV ONE; +normal saline 1000ml 1,000 ML IV ONE; +ondansetron/PF 4mg/2ml inj IV ONE
[2020-10-05 14:46] VITALS: BP 140/81
[2020-10-05 15:22] LABS: BASOPHILS % (AUTO) 0.3 % (0-1); EOSINOPHILS # (AUTO) 0.1 X10'3 (0-0.9); EOSINOPHILS % (AUTO) 0.7 % (0-6); HEMATOCRIT 39.3 % (35.0-45.0); HEMOGLOBIN 13.2 g/dl (12.0-16.0); LYMPHOCYTES # (AUTO) 2.8 X10'3 (1.1-4.8); MEAN CORPUSCULAR HEMOGLOBIN 29.6 PG (27.0-31.0); MEAN CORPUSCULAR HGB CONC 33.6 g/dL (33.0-36.5); MEAN CORPUSCULAR VOLUME 88.2 FL (78-98); MEAN PLATELET VOLUME 8.3 FL (7.4-10.4); MONOCYTES # (AUTO) 0.8 X10'3 (0-0.9); PLATELET COUNT 461 X10'3 (140-440); RED BLOOD COUNT 4.46 X10'6 (4.20-5.60); RED CELL DISTRIBUTION WIDTH 15.7 % (11.5-14.5); WHITE BLOOD COUNT 8.6 X10'3 (4.5-11.0)
[2020-10-05 15:35] LABS: ALANINE AMINOTRANSFERASE 19 U/L (12-78); ALBUMIN 4.1 G/DL (3.4-5.0); ALBUMIN/GLOBULIN RATIO 1.1 (1.1-1.5); ALKALINE PHOSPHATASE 79 IU/L (46-116); ANION GAP 11 (8-16); ASPARTATE AMINO TRANSFERASE 17 U/L (10-37); BILIRUBIN,TOTAL 0.2 MG/DL (0.1-1.0); BLOOD UREA NITROGEN 24 MG/DL (7-18); BUN/CREATININE RATIO 27.9 (6.6-38.0); CALCIUM 10.1 MG/DL (8.5-10.1); CHLORIDE 103 MMOL/L (99-107); CREATININE 0.86 MG/DL (0.40-0.90); GLUCOSE 105 MG/DL (70-104); POTASSIUM 4.4 MMOL/L (3.5-5.1); SODIUM 140 MMOL/L (135-145); TOTAL CARBON DIOXIDE 26.1 MMOL/L (24-32); TOTAL PROTEIN 7.7 G/DL (6.4-8.2); eGFR 67 ML/MIN
[2020-10-05 17:47] LABS: CLARITY,URINE SLIGHTLY CLOUDY (Clear); COLOR,URINE YELLOW (Yellow); GLUCOSE, URINE NEGATIVE (Neg); KETONES,URINE NEGATIVE (Neg); LEUKOCYTE ESTERASE ,URINE TRACE (Neg); NITRITES, URINE POSITIVE (Neg); OCCULT BLOOD,URINE TRACE-INTACT (Neg); PROTEIN,URINE NEGATIVE (Neg); UA COLLECTION TYPE CLN CATCH MIDSTREAM; UROBILINOGEN,URINE 0.2 E.U/dL (0.2-1.0)
[2020-10-05 17:55] LABS: BACTERIA,URINE 4+ /HPF (Neg); SQUAMOUS EPITHELIAL CELL,UR MANY /LPF (FEW)
== END | disposition home or self-care (01) ==
LOC: ER 14:41
DX: K50.90 Crohn's disease, unspecified, without complications (principal); R10.31 Right lower quadrant pain; K59.00 Constipation, unspecified; N39.0 Urinary tract infection, site not specified; R11.10 Vomiting, unspecified; I25.10 Atherosclerotic heart disease of native coronary artery without angina pectoris; K21.9 Gastro-esophageal reflux disease without esophagitis; G89.29 Other chronic pain; Z86.711 Personal history of pulmonary embolism; Z87.11 Personal history of peptic ulcer disease; Z86.2 Personal history of diseases of the blood and blood-forming organs and certain disorders involving the immune mechanism; Z86.14 Personal history of Methicillin resistant Staphylococcus aureus infection; Z90.49 Acquired absence of other specified parts of digestive tract; Z98.890 Other specified postprocedural states; Z90.710 Acquired absence of both cervix and uterus; Z88.8 Allergy status to other drugs, medicaments and biological substances; Z79.2 Long term (current) use of antibiotics; Z79.899 Other long term (current) drug therapy
CPT/HCPCS: 36415; 74176; 80053; 81001; 85025; 96374; 96375; 99284; J2270; J2405; J7030

== ENCOUNTER 2020-10-31 12:28 | Emergency (ER) | payer MEDICARE ==
[~2020-10-31] VITALS: Ht 160 cm; Wt 67.0 kg
[~2020-10-31 12:28] MED LIST changes: -CEPH250T PO; -morphine 4 MG/ML inj SYRINge IV ONE; -normal saline 1000ml 1,000 ML IV ONE; -ondansetron/PF 4mg/2ml inj IV ONE
[2020-10-31] MEDS ORDERED: bisacodyl 10mg suppository rectal RC STA (14:50)
[2020-10-31] MEDS ORDERED: LIDOcaine Viscous 15ml cup MM ONE (15:05)
[2020-10-31] MEDS ORDERED: methylnaltrexone br 12mg/0.6ml inj***SubQ only SQ ONE (15:05)
[2020-10-31] MEDS ORDERED: normal saline 1000ML IV soln IVB ONE (15:05)
[2020-10-31] MEDS ORDERED: morphine 2 MG/ML inj. syringe IV PRN (15:05)
[2020-10-31 15:49] LABS: BASOPHILS % (AUTO) 0.4 % (0-1); EOSINOPHILS % (AUTO) 0.3 % (0-6); HEMATOCRIT 37.8 % (35.0-45.0); HEMOGLOBIN 12.7 g/dl (12.0-16.0); LYMPHOCYTES % (AUTO) 25.3 % (21-51); MEAN CORPUSCULAR HEMOGLOBIN 29.7 PG (27.0-31.0); MEAN CORPUSCULAR HGB CONC 33.7 g/dL (33.0-36.5); MEAN CORPUSCULAR VOLUME 88.2 FL (78-98); MEAN PLATELET VOLUME 8.8 FL (7.4-10.4); MONOCYTES # (AUTO) 0.5 X10'3 (0-0.9); MONOCYTES % (AUTO) 6.1 % (2-12); NEUTROPHILS # (AUTO) 5.3 X10'3 (1.8-7.7); NEUTROPHILS % (AUTO) 67.9 % (42-75); PLATELET COUNT 322 X10'3 (140-440); RED BLOOD COUNT 4.28 X10'6 (4.20-5.60); WHITE BLOOD COUNT 7.7 X10'3 (4.5-11.0)
[2020-10-31 16:01] LABS: ALANINE AMINOTRANSFERASE 19 U/L (12-78); ALBUMIN 4.2 G/DL (3.4-5.0); ALBUMIN/GLOBULIN RATIO 1.3 (1.1-1.5); ALKALINE PHOSPHATASE 83 IU/L (46-116); ANION GAP 12 (8-16); ASPARTATE AMINO TRANSFERASE 18 U/L (10-37); BILIRUBIN,TOTAL 0.3 MG/DL (0.1-1.0); BLOOD UREA NITROGEN 16 MG/DL (7-18); BUN/CREATININE RATIO 19.8 (6.6-38.0); CHLORIDE 107 MMOL/L (99-107); CREATININE 0.81 MG/DL (0.40-0.90); GLUCOSE 108 MG/DL (70-104); POTASSIUM 4.1 MMOL/L (3.5-5.1); SODIUM 144 MMOL/L (135-145); TOTAL CARBON DIOXIDE 25.4 MMOL/L (24-32); TOTAL PROTEIN 7.5 G/DL (6.4-8.2); eGFR 72 ML/MIN
--- NOTE | 2020-10-31 16:36 | NUR ---
Waiting for second bag of IVF to infuse before giving SQ shot, per MD. Pt up to BR, had normal sized BM
[2020-10-31 16:37] VITALS: BP 162/95
== END 2020-10-31 17:27 | disposition home or self-care (01) ==
LOC: ER 12:29
DX: K56.41 Fecal impaction (principal); R10.31 Right lower quadrant pain; E86.0 Dehydration; R19.7 Diarrhea, unspecified; I25.10 Atherosclerotic heart disease of native coronary artery without angina pectoris; K21.9 Gastro-esophageal reflux disease without esophagitis; G89.29 Other chronic pain; F17.200 Nicotine dependence, unspecified, uncomplicated; Z86.711 Personal history of pulmonary embolism; Z87.11 Personal history of peptic ulcer disease; Z86.2 Personal history of diseases of the blood and blood-forming organs and certain disorders involving the immune mechanism; Z86.14 Personal history of Methicillin resistant Staphylococcus aureus infection; Z90.49 Acquired absence of other specified parts of digestive tract; Z98.890 Other specified postprocedural states; Z90.710 Acquired absence of both cervix and uterus; Z88.8 Allergy status to other drugs, medicaments and biological substances; Z79.2 Long term (current) use of antibiotics; Z79.899 Other long term (current) drug therapy
CPT/HCPCS: 36415; 74018; 80053; 85025; 96361; 96372; 96374; 99284; J2212; J2270; J7030

== ENCOUNTER 2020-12-17 13:40 | Emergency (ER) | payer MEDICARE ==
[~2020-12-17] VITALS: Ht 162.6 cm; Wt 70.0 kg
[2020-12-17 15:03] LABS: BASOPHILS % (AUTO) 0.3 % (0-1); EOSINOPHILS % (AUTO) 0.2 % (0-6); HEMATOCRIT 38.8 % (35.0-45.0); HEMOGLOBIN 12.8 g/dl (12.0-16.0); LYMPHOCYTES # (AUTO) 1.2 X10'3 (1.1-4.8); LYMPHOCYTES % (AUTO) 16.8 % (21-51); MEAN CORPUSCULAR HEMOGLOBIN 29.4 PG (27.0-31.0); MEAN CORPUSCULAR VOLUME 89.2 FL (78-98); MEAN PLATELET VOLUME 9.1 FL (7.4-10.4); MONOCYTES # (AUTO) 0.5 X10'3 (0-0.9); MONOCYTES % (AUTO) 6.5 % (2-12); NEUTROPHILS # (AUTO) 5.6 X10'3 (1.8-7.7); NEUTROPHILS % (AUTO) 76.2 % (42-75); PLATELET COUNT 333 X10'3 (140-440); RED BLOOD COUNT 4.35 X10'6 (4.20-5.60); RED CELL DISTRIBUTION WIDTH 15.4 % (11.5-14.5); WHITE BLOOD COUNT 7.3 X10'3 (4.5-11.0)
[2020-12-17 15:18] LABS: ALANINE AMINOTRANSFERASE 19 U/L (12-78); ALBUMIN 4.3 G/DL (3.4-5.0); ALBUMIN/GLOBULIN RATIO 1.3 (1.1-1.5); ALKALINE PHOSPHATASE 88 IU/L (46-116); AMYLASE 50 U/L (25-115); ANION GAP 14 (8-16); ASPARTATE AMINO TRANSFERASE 19 U/L (10-37); BILIRUBIN,TOTAL 0.4 MG/DL (0.1-1.0); BLOOD UREA NITROGEN 18 MG/DL (7-18); BUN/CREATININE RATIO 28.1 (6.6-38.0); CALCIUM 9.7 MG/DL (8.5-10.1); CHLORIDE 104 MMOL/L (99-107); CREATININE 0.64 MG/DL (0.40-0.90); GLUCOSE 135 MG/DL (70-104); LIPASE 110 U/L (73-393); POTASSIUM 3.7 MMOL/L (3.5-5.1); SODIUM 143 MMOL/L (135-145); TOTAL CARBON DIOXIDE 25.1 MMOL/L (24-32); TOTAL PROTEIN 7.5 G/DL (6.4-8.2); eGFR > 90 ML/MIN
[2020-12-17 15:51] LABS: CLARITY,URINE CLOUDY (Clear); COLOR,URINE YELLOW (Yellow); GLUCOSE, URINE NEGATIVE (Neg); KETONES,URINE NEGATIVE (Neg); LEUKOCYTE ESTERASE ,URINE TRACE (Neg); NITRITES, URINE NEGATIVE (Neg); OCCULT BLOOD,URINE NEGATIVE (Neg); PROTEIN,URINE NEGATIVE (Neg); UROBILINOGEN,URINE 0.2 E.U/dL (0.2-1.0)
[2020-12-17 15:54] LABS: UA COLLECTION TYPE CLN CATCH MIDSTREAM
[2020-12-17 15:57] LABS: BACTERIA,URINE 3+ /HPF (Neg); RBC,URINE 0-2 /HPF (0-2); SQUAMOUS EPITHELIAL CELL,UR FEW /LPF (FEW); WBC,URINE 0-4 /HPF (0-4)
[2020-12-17] MEDS ORDERED: normal saline 1000ML IV soln IVB ONE (16:10)
[2020-12-17] MEDS ORDERED: morphine 4 MG/ML inj SYRINge IV ONE (16:10)
[2020-12-17] MEDS ORDERED: ondansetron 4mg rapidly disintigrating tab PO ONE (16:10)
[2020-12-17] MEDS ORDERED: iohexol 300mg/ml 100ml inj. ONE (16:27)
--- NOTE | 2020-12-17 17:19 | NUR ---
Unsuccessful at IV attempts, pt is adament that she gets IV fluids and IV pain medicine
--- NOTE | 2020-12-17 17:48 | NUR ---
HAS DONE U/D GUIDED STICK WITH ARROW CATH TO CATHY, X 3, SUCCESSFUL 3RD ATTEMPT.
[2020-12-17] MEDS ORDERED: acetaminophen 325mg tablet PO ONE (18:00)
[2020-12-17] MEDS ORDERED: CefTRIAXone/D5W-Rocephin 1gm 50 ML IV ONE (18:00)
[2020-12-17] MEDS ORDERED: CIPR-259 PO (18:48)
[2020-12-17] MEDS ORDERED: MUPI22OI30 TOP (18:48)
[2020-12-17] MEDS ORDERED: morphine 2 MG/ML inj. syringe IV ONE (18:55)
[2020-12-17] MEDS ORDERED: ondansetron/PF 4mg/2ml inj IV ONE (18:55)
[2020-12-17 19:46] VITALS: BP 123/77
== END 2020-12-17 19:50 | disposition home or self-care (01) ==
LOC: ER 13:40
DX: N39.0 Urinary tract infection, site not specified (principal); R10.84 Generalized abdominal pain; R10.11 Right upper quadrant pain; R10.32 Left lower quadrant pain; I25.10 Atherosclerotic heart disease of native coronary artery without angina pectoris; K21.9 Gastro-esophageal reflux disease without esophagitis; G89.29 Other chronic pain; Z86.711 Personal history of pulmonary embolism; Z87.11 Personal history of peptic ulcer disease; Z98.61 Coronary angioplasty status; Z90.49 Acquired absence of other specified parts of digestive tract; Z98.891 History of uterine scar from previous surgery; Z90.710 Acquired absence of both cervix and uterus; Z88.6 Allergy status to analgesic agent; Z88.8 Allergy status to other drugs, medicaments and biological substances; Z79.2 Long term (current) use of antibiotics; Z79.899 Other long term (current) drug therapy
CPT/HCPCS: 36415; 74177; 80053; 81001; 82150; 83690; 84484; 85025; 87088; 87186; 96361; 96365; 96375; 96376; 99285; J0696; J2270; J2405; J7030; Q9967; 87077; 93005

== ENCOUNTER 2021-03-01 13:23 | Emergency (ER) | payer MEDICARE ==
[~2021-03-01] VITALS: Ht 161.3 cm; Wt 66.5 kg
[2021-03-01] MEDS ORDERED: normal saline 1000ML IV soln IVB ONE (14:05)
[2021-03-01] MEDS ORDERED: morphine 4 MG/ML inj SYRINge IV ONE (14:45)
[2021-03-01] MEDS ORDERED: ondansetron/PF 4mg/2ml inj IV ONE (14:45)
[2021-03-01 14:52] LABS: BASOPHILS % (AUTO) 0.1 % (0-1); EOSINOPHILS % (AUTO) 0 % (0-6); HEMATOCRIT 38.2 % (35.0-45.0); HEMOGLOBIN 12.7 g/dl (12.0-16.0); LYMPHOCYTES # (AUTO) 1.8 X10'3 (1.1-4.8); LYMPHOCYTES % (AUTO) 18.7 % (21-51); MEAN CORPUSCULAR HEMOGLOBIN 29.6 PG (27.0-31.0); MEAN CORPUSCULAR HGB CONC 33.2 g/dL (33.0-36.5); MEAN CORPUSCULAR VOLUME 89.1 FL (78-98); MONOCYTES # (AUTO) 0.6 X10'3 (0-0.9); MONOCYTES % (AUTO) 6.6 % (2-12); NEUTROPHILS # (AUTO) 7.3 X10'3 (1.8-7.7); NEUTROPHILS % (AUTO) 74.6 % (42-75); PLATELET COUNT 377 X10'3 (140-440); RED BLOOD COUNT 4.29 X10'6 (4.20-5.60); RED CELL DISTRIBUTION WIDTH 16.6 % (11.5-14.5); WHITE BLOOD COUNT 9.8 X10'3 (4.5-11.0)
[2021-03-01 14:58] LABS: CLARITY,URINE CLOUDY (Clear); COLOR,URINE YELLOW (Yellow); GLUCOSE, URINE NEGATIVE (Neg); KETONES,URINE NEGATIVE (Neg); LEUKOCYTE ESTERASE ,URINE NEGATIVE (Neg); NITRITES, URINE NEGATIVE (Neg); OCCULT BLOOD,URINE TRACE-INTACT (Neg); PH,URINE 6.5 (4.8-8.0); PROTEIN,URINE NEGATIVE (Neg); UROBILINOGEN,URINE 0.2 E.U/dL (0.2-1.0)
[2021-03-01 15:01] LABS: UA COLLECTION TYPE CLN CATCH MIDSTREAM
[2021-03-01 15:03] LABS: ALANINE AMINOTRANSFERASE 18 U/L (12-78); ALBUMIN 3.8 G/DL (3.4-5.0); ALBUMIN/GLOBULIN RATIO 1.2 (1.1-1.5); ALKALINE PHOSPHATASE 87 IU/L (46-116); ANION GAP 9 (8-16); ASPARTATE AMINO TRANSFERASE 14 U/L (10-37); BILIRUBIN,TOTAL 0.3 MG/DL (0.1-1.0); BLOOD UREA NITROGEN 14 MG/DL (7-18); BUN/CREATININE RATIO 16.1 (6.6-38.0); CALCIUM 9.8 MG/DL (8.5-10.1); CHLORIDE 107 MMOL/L (99-107); CREATININE 0.87 MG/DL (0.40-0.90); GLUCOSE 136 MG/DL (70-104); LIPASE 178 U/L (73-393); POTASSIUM 3.8 MMOL/L (3.5-5.1); SODIUM 142 MMOL/L (135-145); TOTAL CARBON DIOXIDE 25.9 MMOL/L (24-32); TOTAL PROTEIN 7.1 G/DL (6.4-8.2); eGFR 66 ML/MIN
[2021-03-01 15:05] LABS: RBC,URINE 0-2 /HPF (0-2)
[2021-03-01 15:06] LABS: BACTERIA,URINE 2+ /HPF (Neg); MUCUS STRANDS NONE SEEN /LPF (Neg); SQUAMOUS EPITHELIAL CELL,UR MODERATE /LPF (FEW)
[2021-03-01 15:07] LABS: CELLULAR CAST 0-4 /LPF (NEGATIVE)
[2021-03-01 15:08] LABS: AMORPHOUS URATES 1+
[2021-03-01] MEDS ORDERED: fentaNYL/PF 50MCG/1 ML 2ML syringe IV ONE (15:15)
[2021-03-01] MEDS ORDERED: hyoscyamine 0.125mg TAB.SUBL SL ONE ×2 (15:15)
[2021-03-01] MEDS ORDERED: pantoprazole 40 MG vial IV ONE (15:15)
--- NOTE | 2021-03-01 15:51 | NUR ---
Pt states Fentanyl offered her little to no relief. Protonix and Levsin given. Pt states that when her pain becomes this severe that Dilaudid has been the only medication that has offered relief in the past. made aware.
[2021-03-01] MEDS ORDERED: AMIT-189 PO (16:24)
[2021-03-01] MEDS ORDERED: TEMA15CA PO (16:24)
[2021-03-01] MEDS ORDERED: MESA800T9 PO (16:24)
[2021-03-01] MEDS ORDERED: ONDA4TAB12 SL (16:24)
[2021-03-01] MEDS ORDERED: OMEP-50 PO (16:24)
[2021-03-01] MEDS ORDERED: OXYC1TAB17 PO (16:24)
[2021-03-01] MEDS ORDERED: BUPR8TAB4 SL (16:24)
[2021-03-01] MEDS ORDERED: AMIT25TA9 PO (16:31)
[2021-03-01 17:06] VITALS: BP 113/61
--- NOTE | 2021-03-01 17:12 | NUR ---
pt extremely rude to RN. yelling for another pain med before d/c and demanding to speak with ERP. ERP in room to explain to pt that she has already received multiple pain meds. pt then proceeded to tell RN "you need to be less rude and that pt's yelling at you in part of your job, to take the yelling".
== END 2021-03-01 17:14 | disposition home or self-care (01) ==
LOC: ER 13:24
DX: G89.29 Other chronic pain (principal); R10.9 Unspecified abdominal pain; I25.10 Atherosclerotic heart disease of native coronary artery without angina pectoris; K21.9 Gastro-esophageal reflux disease without esophagitis; Z88.5 Allergy status to narcotic agent; Z79.899 Other long term (current) drug therapy; Z88.6 Allergy status to analgesic agent
CPT/HCPCS: 36415; 74176; 80053; 81001; 83605; 83690; 85025; 85651; 86140; 87077; 87088; 87186; 96361; 96374; 96375; 99284; C9113; J2270; J2405; J3010; J7030

== ENCOUNTER 2023-02-05 04:49 | Emergency (ER) | payer MEDICARE ==
[~2023-02-05] VITALS: Ht 162.6 cm; Wt 68.2 kg
[~2023-02-05 04:49] MED LIST changes: -ALBU8.5H8 INH; +AMIT25TA9 PO; +AMIT50TA15 PO; -AZIT-63 PO; +BUPR8TAB4 SL; -FERR325T32 PO; -MESA800T PO; +MESA800T9 PO; -NITR100C6 PO; +OMEP20CA16 PO; +ONDA4TAB12 SL; -ONDA4TAB6 PO; -OXYC-150 PO; +OXYC1TAB17 PO; -PANT-47 PO; -PHE25R PR; -PHEN1SUP96 PR; +TEMA15CA PO
[2023-02-05 06:20] VITALS: BP 153/89
[2023-02-05] MEDS ORDERED: ondansetron/PF 4mg/2ml inj IV ONE (06:40)
[2023-02-05] MEDS ORDERED: acetaminophen 1,000mg/100ml IV 100 ML IV ONE (06:40)
[2023-02-05] MEDS ORDERED: morphine 4 MG/ML inj SYRINge IV ONE ×2 (06:40→10:13)
[2023-02-05] MEDS ORDERED: NORMAL SALINE IV ONE (06:40)
[2023-02-05] MEDS ORDERED: ACYCLOVIR IV ONE (06:40)
[2023-02-05] MEDS ORDERED: normal saline 1000ML IV soln IVB ONE (06:40)
[2023-02-05 07:37] LABS: BASOPHILS % (AUTO) 0.1 % (0-1); EOSINOPHILS % (AUTO) 0 % (0-6); HEMATOCRIT 38.5 % (35.0-45.0); LYMPHOCYTES # (AUTO) 1.2 X10'3 (1.1-4.8); LYMPHOCYTES % (AUTO) 12.4 % (21-51); MEAN CORPUSCULAR HEMOGLOBIN 28.9 PG (27.0-31.0); MEAN CORPUSCULAR HGB CONC 33.8 g/dL (33.0-36.5); MEAN CORPUSCULAR VOLUME 85.5 FL (78-98); MEAN PLATELET VOLUME 8.8 FL (7.4-10.4); MONOCYTES # (AUTO) 0.8 X10'3 (0-0.9); MONOCYTES % (AUTO) 8.1 % (2-12); NEUTROPHILS % (AUTO) 79.4 % (42-75); PLATELET COUNT 321 X10'3 (140-440); RED BLOOD COUNT 4.51 X10'6 (4.20-5.60); RED CELL DISTRIBUTION WIDTH 16.7 % (11.5-14.5); WHITE BLOOD COUNT 10.1 X10'3 (4.5-11.0)
[2023-02-05 07:53] LABS: ALANINE AMINOTRANSFERASE 17 U/L (12-78); ALBUMIN/GLOBULIN RATIO 1.2 (1.1-1.5); ALKALINE PHOSPHATASE 104 IU/L (46-116); ANION GAP 13 (8-16); ASPARTATE AMINO TRANSFERASE 17 U/L (10-37); BILIRUBIN,TOTAL 0.3 MG/DL (0.1-1.0); BLOOD UREA NITROGEN 19 MG/DL (7-18); BUN/CREATININE RATIO 27.1 (10.0-20.0); CALCIUM 10.1 MG/DL (8.5-10.1); CHLORIDE 103 MMOL/L (99-107); GLUCOSE 131 MG/DL (70-104); LIPASE 56 U/L (73-393); POTASSIUM 4.1 MMOL/L (3.5-5.1); SODIUM 139 MMOL/L (135-145); TOTAL CARBON DIOXIDE 23.2 MMOL/L (24-32); TOTAL PROTEIN 7.3 G/DL (6.4-8.2); eGFR 85 ML/MIN
[2023-02-05 09:20] LABS: CLARITY,URINE CLEAR (Clear); COLOR,URINE YELLOW (Yellow); GLUCOSE, URINE NEGATIVE (Neg); KETONES,URINE NEGATIVE (Neg); LEUKOCYTE ESTERASE ,URINE NEGATIVE (Neg); NITRITES, URINE NEGATIVE (Neg); OCCULT BLOOD,URINE TRACE-INTACT (Neg); PROTEIN,URINE NEGATIVE (Neg); UA COLLECTION TYPE CLN CATCH MIDSTREAM; UROBILINOGEN,URINE 0.2 E.U/dL (0.2-1.0)
[2023-02-05 09:25] LABS: BACTERIA,URINE NONE SEEN /HPF (Neg); SQUAMOUS EPITHELIAL CELL,UR FEW /LPF (FEW); WBC,URINE 0-4 /HPF (0-4)
[2023-02-05] MEDS ORDERED: LIDOCAINE 5% OINTMENT 35GM TP ONE (10:05)
[2023-02-05] MEDS ORDERED: proparacaine 0.5% ophthalmic drops 15ml EACHEYE ONE (10:05)
[2023-02-05] MEDS ORDERED: HYDR-3965 PO (11:25)
[2023-02-05] MEDS ORDERED: HYDR-3972 PO (11:38)
== END 2023-02-05 12:01 | disposition home or self-care (01) ==
LOC: ER 04:50
DX: B02.9 Zoster without complications (principal); K21.9 Gastro-esophageal reflux disease without esophagitis; I11.0 Hypertensive heart disease with heart failure; Z88.8 Allergy status to other drugs, medicaments and biological substances; Z79.899 Other long term (current) drug therapy; Z79.1 Long term (current) use of non-steroidal anti-inflammatories (NSAID); Z79.2 Long term (current) use of antibiotics
CPT/HCPCS: 36415; 80053; 81001; 83690; 85025; 96365; 96366; 96375; 96376; 99284; J0131; J0133; J2270; J2405; J7030; J7050; 96367

== ENCOUNTER 2023-02-21 08:36 | Emergency (ER) | payer MEDICARE ==
[~2023-02-21] VITALS: Ht 160 cm; Wt 69.1 kg
[~2023-02-21 08:36] MED LIST changes: +HYDR-3972 PO
[2023-02-21 08:51] VITALS: BP 136/82
[2023-02-21] MEDS ORDERED: ondansetron 4mg rapidly disintigrating tab PO ONE (09:50)
[2023-02-21] MEDS ORDERED: haloperidol lactate 5mg/ml inj IM ONE (09:50)
[2023-02-21] MEDS ORDERED: morphine 4 MG/ML inj SYRINge IM ONE (09:50)
[2023-02-21] MEDS ORDERED: NYST1000 PO (14:41)
== END 2023-02-21 11:37 | disposition home or self-care (01) ==
LOC: ER 08:37
DX: B02.29 Other postherpetic nervous system involvement (principal); B37.9 Candidiasis, unspecified; K21.9 Gastro-esophageal reflux disease without esophagitis; G89.29 Other chronic pain; Z98.890 Other specified postprocedural states; I51.9 Heart disease, unspecified; Z88.5 Allergy status to narcotic agent; Z79.899 Other long term (current) drug therapy
CPT/HCPCS: 96372; 99284; J1630; J2270

== ENCOUNTER 2023-03-04 06:24 | Emergency (ER) | payer MEDICARE ==
[~2023-03-04] VITALS: Ht 167.6 cm; Wt 67.3 kg
[~2023-03-04 06:24] MED LIST changes: +NYST1000 PO
[2023-03-04 06:29] VITALS: BP 144/70
[2023-03-04] MEDS ORDERED: gabapentin 400mg capsule PO ONE (06:55)
[2023-03-04] MEDS ORDERED: acetaminophen 325mg tablet PO ONE (06:55)
[2023-03-04] MEDS ORDERED: LIDOcaine Viscous 15ml cup TP ONE (06:55)
[2023-03-04] MEDS ORDERED: normal saline 1000ml 1,000 ML IV ONE (06:55)
[2023-03-04] MEDS ORDERED: ondansetron/PF 4mg/2ml inj IV ONE (06:55)
[2023-03-04] MEDS ORDERED: morphine 4 MG/ML inj SYRINge IV ONE (06:55)
[2023-03-04] MEDS ORDERED: HYDR-3965 PO (08:06)
[2023-03-04] MEDS ORDERED: LIDO30CR TOP (08:06)
[2023-03-04] MEDS ORDERED: GABA-534 PO (08:06)
== END 2023-03-04 08:34 | disposition home or self-care (01) ==
LOC: ER 06:25
DX: B02.22 Postherpetic trigeminal neuralgia (principal); K21.9 Gastro-esophageal reflux disease without esophagitis; Z88.8 Allergy status to other drugs, medicaments and biological substances; Z88.6 Allergy status to analgesic agent; Z90.49 Acquired absence of other specified parts of digestive tract; Z98.890 Other specified postprocedural states; Z90.710 Acquired absence of both cervix and uterus
CPT/HCPCS: 96374; 96375; 99284; J2270; J2405; J7030

== ENCOUNTER 2023-04-01 03:59 | Emergency (ER) | payer MEDICARE ==
[~2023-04-01] VITALS: Ht 160 cm; Wt 71.8 kg
[~2023-04-01 03:59] MED LIST changes: +GABA-534 PO; +HYDR-3965 PO; -HYDR-3972 PO; +LIDO30CR TOP; -NYST1000 PO
[2023-04-01 04:14] VITALS: BP 124/88
[2023-04-01] MEDS ORDERED: gabapentin 400mg capsule PO ONE (04:40)
[2023-04-01] MEDS ORDERED: oxyCODONE/APAP 10/325mg tablet PO ONE (04:40)
[2023-04-01] MEDS ORDERED: GABA-530 PO (04:43)
== END 2023-04-01 04:55 | disposition home or self-care (01) ==
LOC: ER 04:00
DX: B02.29 Other postherpetic nervous system involvement (principal); I51.9 Heart disease, unspecified; K21.9 Gastro-esophageal reflux disease without esophagitis; Z86.2 Personal history of diseases of the blood and blood-forming organs and certain disorders involving the immune mechanism; Z86.14 Personal history of Methicillin resistant Staphylococcus aureus infection; Z88.5 Allergy status to narcotic agent; Z79.899 Other long term (current) drug therapy
CPT/HCPCS: 99284

== ENCOUNTER 2023-09-24 12:24 | Emergency (ER) | payer MEDICARE ==
[~2023-09-24] VITALS: Ht 160 cm; Wt 62.7 kg
[~2023-09-24 12:24] MED LIST changes: -AMIT25TA9 PO; -AMIT50TA15 PO; -BUPR8TAB4 SL; +ERGO400C PO; +FAMC500T23 PO; +GABA-530 PO; -GABA-534 PO; -HYDR-3965 PO; +HYDR-3972 PO; +HYDR2TAB28 PO; -LACT1CAP65 PO; -LIDO30CR TOP; +LORA2ORA PO; +NICO-687 TD; -OMEP20CA16 PO; -OXYC1TAB17 PO; +PRED10TA PO; +ZOLP5TAB2 PO
[2023-09-24 12:43] VITALS: TEMP 97.8
[2023-09-24 12:58] LABS: BASOPHILS % (AUTO) 0.2 % (0-1); EOSINOPHILS % (AUTO) 0.3 % (0-6); HEMATOCRIT 35.5 % (35.0-45.0); HEMOGLOBIN 11.6 g/dl (12.0-16.0); LYMPHOCYTES # (AUTO) 1.1 X10'3 (1.1-4.8); LYMPHOCYTES % (AUTO) 16.5 % (21-51); MEAN CORPUSCULAR HEMOGLOBIN 28.3 PG (27.0-31.0); MEAN CORPUSCULAR HGB CONC 32.6 g/dL (33.0-36.5); MEAN CORPUSCULAR VOLUME 86.9 FL (78-98); MEAN PLATELET VOLUME 8.7 FL (7.4-10.4); MONOCYTES # (AUTO) 0.5 X10'3 (0-0.9); MONOCYTES % (AUTO) 7.1 % (2-12); NEUTROPHILS # (AUTO) 5.1 X10'3 (1.8-7.7); NEUTROPHILS % (AUTO) 75.9 % (42-75); PLATELET COUNT 272 X10'3 (140-440); RED BLOOD COUNT 4.08 X10'6 (4.20-5.60); RED CELL DISTRIBUTION WIDTH 18.2 % (11.5-14.5); WHITE BLOOD COUNT 6.7 X10'3 (4.5-11.0)
[2023-09-24 13:15] LABS: ALANINE AMINOTRANSFERASE 26 U/L (12-78); ALBUMIN 2.8 G/DL (3.4-5.0); ALBUMIN/GLOBULIN RATIO 0.7 (1.1-1.5); ALKALINE PHOSPHATASE 64 IU/L (46-116); ANION GAP 9 (8-16); ASPARTATE AMINO TRANSFERASE 30 U/L (10-37); BILIRUBIN,TOTAL 0.3 MG/DL (0.1-1.0); BLOOD UREA NITROGEN 13 MG/DL (7-18); BUN/CREATININE RATIO 19.7 (10.0-20.0); CHLORIDE 107 MMOL/L (99-107); CREATININE 0.66 MG/DL (0.40-0.90); GLUCOSE 135 MG/DL (70-104); POTASSIUM 3.8 MMOL/L (3.5-5.1); SODIUM 141 MMOL/L (135-145); TOTAL CARBON DIOXIDE 24.8 MMOL/L (24-32); TOTAL PROTEIN 6.6 G/DL (6.4-8.2); eCRCL 72 ML/MIN; eGFR 90 ML/MIN
[2023-09-24 13:24] LABS: PRO BRAIN NATRIURETIC PEPTIDE 92 PG/ML (0-125)
[2023-09-24 15:08] VITALS: BP 136/80; PULSE 90; RESP 18; O2SAT 97
== END 2023-09-24 17:47 | disposition left against medical advice (07) ==
LOC: ER 12:25
DX: R10.9 Unspecified abdominal pain (principal); Z53.21 Procedure and treatment not carried out due to patient leaving prior to being seen by health care provider
CPT/HCPCS: 36415; 80053; 83880; 84484; 85025; 93005; 99281

== ENCOUNTER 2023-12-05 16:28 | Emergency (ER) | payer MEDICARE ==
[~2023-12-05] VITALS: Ht 160 cm; Wt 69.6 kg
[2023-12-05 17:45] LABS: BASOPHILS % (AUTO) 0.4 % (0-1); EOSINOPHILS % (AUTO) 0.3 % (0-6); HEMATOCRIT 34.7 % (35.0-45.0); HEMOGLOBIN 11.4 g/dl (12.0-16.0); LYMPHOCYTES # (AUTO) 1.3 X10'3 (1.1-4.8); LYMPHOCYTES % (AUTO) 15.8 % (21-51); MEAN CORPUSCULAR HEMOGLOBIN 26.9 PG (27.0-31.0); MEAN CORPUSCULAR HGB CONC 32.8 g/dL (33.0-36.5); MEAN PLATELET VOLUME 8.5 FL (7.4-10.4); MONOCYTES # (AUTO) 0.5 X10'3 (0-0.9); MONOCYTES % (AUTO) 6.4 % (2-12); NEUTROPHILS # (AUTO) 6.1 X10'3 (1.8-7.7); NEUTROPHILS % (AUTO) 77.1 % (42-75); PLATELET COUNT 372 X10'3 (140-440); RED BLOOD COUNT 4.23 X10'6 (4.20-5.60); RED CELL DISTRIBUTION WIDTH 18.1 % (11.5-14.5); WHITE BLOOD COUNT 7.9 X10'3 (4.5-11.0)
[2023-12-05 18:02] LABS: ALBUMIN 3.6 G/DL (3.4-5.0); ANION GAP 13 (8-16); BLOOD UREA NITROGEN 12 MG/DL (7-18); BUN/CREATININE RATIO 15.4 (10.0-20.0); CALCIUM 9.8 MG/DL (8.5-10.1); CHLORIDE 108 MMOL/L (99-107); CREATININE 0.78 MG/DL (0.40-0.90); GLUCOSE 122 MG/DL (70-104); LIPASE 43 U/L (16-77); POTASSIUM 4.4 MMOL/L (3.5-5.1); SODIUM 144 MMOL/L (135-145); TOTAL CARBON DIOXIDE 22.6 MMOL/L (24-32); eCRCL 61 ML/MIN; eGFR 75 ML/MIN
[2023-12-05] MEDS: ondansetron/PF 4mg/2ml inj IV ONE (21:18)
[2023-12-05] MEDS: HYDROmorphone inj. 0.5 MG/0.5 ML DISP.SYRIN IV ONE (21:28)
[2023-12-05] MEDS: methylPREDNISolone sod succ 125mg/2ml vial IV ONE (21:30)
[2023-12-05] MEDS: normal saline 1000ML IV soln IVB ONE (21:30)
[2023-12-05 23:57] VITALS: BP 132/83; PULSE 81; RESP 16; TEMP 98.6; O2SAT 97
== END 2023-12-05 23:59 | disposition home or self-care (01) ==
LOC: ER 16:29
DX: K50.90 Crohn's disease, unspecified, without complications (principal); I25.10 Atherosclerotic heart disease of native coronary artery without angina pectoris; G89.29 Other chronic pain; I26.99 Other pulmonary embolism without acute cor pulmonale; Z90.49 Acquired absence of other specified parts of digestive tract; Z98.890 Other specified postprocedural states; Z90.710 Acquired absence of both cervix and uterus; Z88.8 Allergy status to other drugs, medicaments and biological substances; Z88.5 Allergy status to narcotic agent; Z79.899 Other long term (current) drug therapy; Z79.2 Long term (current) use of antibiotics
CPT/HCPCS: 36415; 80048; 83690; 84484; 85025; 96361; 96374; 96375; 99284; J1170; J2405; J2930; J7030

== ENCOUNTER 2024-05-29 11:22 | Emergency (ER) | payer MEDICARE ==
[~2024-05-29] VITALS: Ht 161.3 cm; Wt 69.7 kg
[~2024-05-29 11:22] MED LIST changes: +DOCU-148 PO; -FAMC500T23 PO; -HYDR-3972 PO; -LORA2ORA PO; +ONDA-243 SL; -ONDA4TAB12 SL; -PRED10TA PO; -TEMA15CA PO
[2024-05-29 12:14] LABS: BILIRUBIN,URINE NEGATIVE (Neg); CLARITY,URINE CLEAR (Clear); COLOR,URINE YELLOW (Yellow); GLUCOSE, URINE NEGATIVE (Neg); KETONES,URINE NEGATIVE (Neg); LEUKOCYTE ESTERASE ,URINE NEGATIVE (Neg); NITRITES, URINE NEGATIVE (Neg); OCCULT BLOOD,URINE NEGATIVE (Neg); PH,URINE 7.5 (4.8-8.0); PROTEIN,URINE NEGATIVE (Neg); UROBILINOGEN,URINE 0.2 E.U/dL (0.2-1.0)
[2024-05-29 12:18] LABS: UA COLLECTION TYPE CLN CATCH MIDSTREAM
[2024-05-29 12:21] VITALS: TEMP 97.9
[2024-05-29 12:26] LABS: BASOPHILS % (AUTO) 0.4 % (0-1); EOSINOPHILS % (AUTO) 0.2 % (0-6); HEMATOCRIT 37.9 % (35.0-45.0); HEMOGLOBIN 12.5 g/dl (12.0-16.0); LYMPHOCYTES % (AUTO) 15.3 % (21-51); MEAN CORPUSCULAR HEMOGLOBIN 26.9 PG (27.0-31.0); MEAN CORPUSCULAR HGB CONC 32.9 g/dL (33.0-36.5); MEAN CORPUSCULAR VOLUME 81.6 FL (78-98); MEAN PLATELET VOLUME 8.7 FL (7.4-10.4); MONOCYTES # (AUTO) 0.3 X10'3 (0-0.9); MONOCYTES % (AUTO) 5.4 % (2-12); NEUTROPHILS # (AUTO) 5.1 X10'3 (1.8-7.7); NEUTROPHILS % (AUTO) 78.7 % (42-75); PLATELET COUNT 329 X10'3 (140-440); RED BLOOD COUNT 4.65 X10'6 (4.20-5.60); RED CELL DISTRIBUTION WIDTH 19.5 % (11.5-14.5); WHITE BLOOD COUNT 6.5 X10'3 (4.5-11.0)
[2024-05-29 12:38] LABS: ANION GAP 12 (8-16); BLOOD UREA NITROGEN 12 MG/DL (7-18); BUN/CREATININE RATIO 15.6 (10.0-20.0); CALCIUM 9.6 MG/DL (8.5-10.1); CHLORIDE 108 MMOL/L (99-107); CREATININE 0.77 MG/DL (0.40-0.90); GLUCOSE 108 MG/DL (70-104); POTASSIUM 4.1 MMOL/L (3.5-5.1); SODIUM 146 MMOL/L (135-145); TOTAL CARBON DIOXIDE 25.8 MMOL/L (24-32); eCRCL 63 ML/MIN; eGFR 76 ML/MIN
[2024-05-29] MEDS: normal saline 1000ML IV soln IVB ONE ×2 (13:05→15:44)
[2024-05-29] MEDS ORDERED: iohexol 300mg/ml 100ml inj. ONE (13:25)
[2024-05-29] MEDS: HYDROcodone/acetaminophen 5mg/325mg tablet PO ONE (16:00)
[2024-05-29 17:40] VITALS: BP 138/82; PULSE 91; RESP 14; O2SAT 99
== END 2024-05-29 17:42 | disposition home or self-care (01) ==
LOC: ER 11:23
DX: R10.84 Generalized abdominal pain (principal); K59.00 Constipation, unspecified; F17.200 Nicotine dependence, unspecified, uncomplicated; I25.10 Atherosclerotic heart disease of native coronary artery without angina pectoris; K21.9 Gastro-esophageal reflux disease without esophagitis; D64.9 Anemia, unspecified; G89.29 Other chronic pain; Z88.8 Allergy status to other drugs, medicaments and biological substances; Z79.899 Other long term (current) drug therapy; Z86.711 Personal history of pulmonary embolism; Z90.49 Acquired absence of other specified parts of digestive tract; Z90.710 Acquired absence of both cervix and uterus; Z98.890 Other specified postprocedural states; Z98.61 Coronary angioplasty status; Z87.442 Personal history of urinary calculi
CPT/HCPCS: 36415; 71045; 74176; 80048; 81003; 83605; 84145; 85025; 87040; 96360; 99285; J7030; Q9967

== ENCOUNTER 2024-07-08 11:24 | Emergency (ER) | payer MEDICARE ==
[~2024-07-08] VITALS: Ht 160 cm; Wt 67.7 kg
[2024-07-08 11:30] VITALS: TEMP 98.9
[2024-07-08 13:30] LABS: ALANINE AMINOTRANSFERASE 19 U/L (12-78); ALBUMIN 3.5 G/DL (3.4-5.0); ALBUMIN/GLOBULIN RATIO 1.2 (1.1-1.5); ALKALINE PHOSPHATASE 74 IU/L (46-116); ANION GAP 10 (8-16); ASPARTATE AMINO TRANSFERASE 17 U/L (10-37); BILIRUBIN,TOTAL 0.4 MG/DL (0.1-1.0); BLOOD UREA NITROGEN 4 MG/DL (7-18); BUN/CREATININE RATIO 4.7 (10.0-20.0); CALCIUM 9.1 MG/DL (8.5-10.1); CHLORIDE 109 MMOL/L (99-107); CREATININE 0.85 MG/DL (0.40-0.90); GLUCOSE 100 MG/DL (70-104); MAGNESIUM 2.1 MG/DL (1.5-2.4); POTASSIUM 4.3 MMOL/L (3.5-5.1); SODIUM 142 MMOL/L (135-145); TOTAL CARBON DIOXIDE 22.8 MMOL/L (24-32); TOTAL PROTEIN 6.4 G/DL (6.4-8.2); eCRCL 55 ML/MIN; eGFR 67 ML/MIN
[2024-07-08] MEDS: acetaminophen 325mg tablet PO STA (13:43)
[2024-07-08] MEDS: normal saline 1000ml 1,000 ML IV STA (13:43)
[2024-07-08 14:10] LABS: BASOPHILS # (AUTO) 0.1 X10'3 (0-0.2); EOSINOPHILS % (AUTO) 0.1 % (0-6); HEMATOCRIT 34.8 % (35.0-45.0); HEMOGLOBIN 11.2 g/dl (12.0-16.0); LYMPHOCYTES # (AUTO) 1.5 X10'3 (1.1-4.8); LYMPHOCYTES % (AUTO) 23.7 % (21-51); MEAN CORPUSCULAR HEMOGLOBIN 26.5 PG (27.0-31.0); MEAN CORPUSCULAR HGB CONC 32.2 g/dL (33.0-36.5); MEAN CORPUSCULAR VOLUME 82.2 FL (78-98); MEAN PLATELET VOLUME 8.3 FL (7.4-10.4); MONOCYTES # (AUTO) 0.4 X10'3 (0-0.9); MONOCYTES % (AUTO) 6.6 % (2-12); NEUTROPHILS # (AUTO) 4.3 X10'3 (1.8-7.7); NEUTROPHILS % (AUTO) 68.6 % (42-75); PLATELET COUNT 428 X10'3 (140-440); RED BLOOD COUNT 4.23 X10'6 (4.20-5.60); RED CELL DISTRIBUTION WIDTH 19.6 % (11.5-14.5); WHITE BLOOD COUNT 6.3 X10'3 (4.5-11.0)
[2024-07-08 14:47] LABS: ANISOCYTOSIS 2+; PLATELET ESTIMATE NORMAL
[2024-07-08 14:48] LABS: ELLIPTOCYTES FEW
[2024-07-08 14:49] LABS: LARGE PLATELETS FEW
[2024-07-08 16:32] VITALS: BP 148/80; PULSE 67; RESP 16; O2SAT 97
[2024-07-08 18:39] LABS: URINE AMPHETAMINE SCREEN NEGATIVE (Neg); URINE BARBITUATE SCREEN NEGATIVE (Neg); URINE BENZODIAZEPINES SCREEN NEGATIVE (Neg); URINE CANNABINOID SCREEN POSITIVE (Neg); URINE COCAINE SCREEN NEGATIVE (Neg); URINE METHADONE SCREEN NEGATIVE (Neg); URINE OPIATE SCREEN NEGATIVE (Neg); URINE PHENCYCLIDINE SCREEN NEGATIVE (Neg)
[2024-07-08 18:54] LABS: BILIRUBIN,URINE NEGATIVE (Neg); CLARITY,URINE CLEAR (Clear); COLOR,URINE YELLOW (Yellow); GLUCOSE, URINE NEGATIVE (Neg); KETONES,URINE NEGATIVE (Neg); LEUKOCYTE ESTERASE ,URINE NEGATIVE (Neg); NITRITES, URINE NEGATIVE (Neg); OCCULT BLOOD,URINE NEGATIVE (Neg); PROTEIN,URINE NEGATIVE (Neg); UROBILINOGEN,URINE 0.2 E.U/dL (0.2-1.0)
[2024-07-08 18:57] LABS: UA COLLECTION TYPE CLN CATCH MIDSTREAM
== END 2024-07-08 16:50 | disposition home or self-care (01) ==
LOC: ER 11:25
DX: Z88.8 Allergy status to other drugs, medicaments and biological substances (principal); Z79.899 Other long term (current) drug therapy; Z79.1 Long term (current) use of non-steroidal anti-inflammatories (NSAID); I25.10 Atherosclerotic heart disease of native coronary artery without angina pectoris; Z86.711 Personal history of pulmonary embolism; Z87.11 Personal history of peptic ulcer disease; Z90.49 Acquired absence of other specified parts of digestive tract; Z90.710 Acquired absence of both cervix and uterus; Z98.84 Bariatric surgery status; Z98.890 Other specified postprocedural states; K21.9 Gastro-esophageal reflux disease without esophagitis; B34.9 Viral infection, unspecified
CPT/HCPCS: 36415; 71046; 80053; 80305; 81003; 83605; 83735; 85008; 85025; 96360; 96361; 99284; J7030

== ENCOUNTER 2024-07-29 10:16 | Inpatient (IN) | payer MEDICARE ==
[~2024-07-29] VITALS: Ht 160 cm; Wt 68.8 kg
[2024-07-29 12:18] LABS: BILIRUBIN,URINE NEGATIVE (Neg); CLARITY,URINE CLEAR (Clear); COLOR,URINE YELLOW (Yellow); GLUCOSE, URINE NEGATIVE (Neg); KETONES,URINE NEGATIVE (Neg); LEUKOCYTE ESTERASE ,URINE NEGATIVE (Neg); OCCULT BLOOD,URINE NEGATIVE (Neg); PH,URINE 7.5 (4.8-8.0); PROTEIN,URINE NEGATIVE (Neg); UROBILINOGEN,URINE 0.2 E.U/dL (0.2-1.0)
[2024-07-29 12:21] LABS: NITRITES, URINE NEGATIVE (Neg); UA COLLECTION TYPE NON-SPECIFIED
[2024-07-29 12:26] LABS: URINE HCG NEGATIVE (NEG)
[2024-07-29 12:33] LABS: BASOPHILS % (AUTO) 0.5 % (0-1); EOSINOPHILS # (AUTO) 0.1 X10'3 (0-0.9); EOSINOPHILS % (AUTO) 0.8 % (0-6); HEMATOCRIT 35.2 % (35.0-45.0); HEMOGLOBIN 11.4 g/dl (12.0-16.0); LYMPHOCYTES # (AUTO) 2.3 X10'3 (1.1-4.8); LYMPHOCYTES % (AUTO) 29.3 % (21-51); MEAN CORPUSCULAR HEMOGLOBIN 26.9 PG (27.0-31.0); MEAN CORPUSCULAR HGB CONC 32.3 g/dL (33.0-36.5); MEAN CORPUSCULAR VOLUME 83.2 FL (78-98); MONOCYTES # (AUTO) 0.5 X10'3 (0-0.9); MONOCYTES % (AUTO) 6.1 % (2-12); NEUTROPHILS # (AUTO) 4.9 X10'3 (1.8-7.7); NEUTROPHILS % (AUTO) 63.3 % (42-75); PLATELET COUNT 399 X10'3 (140-440); RED BLOOD COUNT 4.23 X10'6 (4.20-5.60); RED CELL DISTRIBUTION WIDTH 20.4 % (11.5-14.5); WHITE BLOOD COUNT 7.8 X10'3 (4.5-11.0)
[2024-07-29] MEDS: normal saline 1000ml 1,000 ML IV ONE (12:41)
[2024-07-29] MEDS: ondansetron/PF 4mg/2ml inj IV ONE (12:42)
[2024-07-29] MEDS: morphine 4 MG/ML inj SYRINge IV ONE (12:43)
[2024-07-29 12:48] LABS: ALANINE AMINOTRANSFERASE 24 U/L (12-78); ALBUMIN 3.2 G/DL (3.4-5.0); ALBUMIN/GLOBULIN RATIO 1.1 (1.1-1.5); ALKALINE PHOSPHATASE 87 IU/L (46-116); ANION GAP 11 (8-16); ASPARTATE AMINO TRANSFERASE 18 U/L (10-37); BILIRUBIN,TOTAL 0.5 MG/DL (0.1-1.0); BLOOD UREA NITROGEN 6 MG/DL (7-18); BUN/CREATININE RATIO 7.4 (10.0-20.0); CALCIUM 8.7 MG/DL (8.5-10.1); CHLORIDE 109 MMOL/L (99-107); CREATININE 0.81 MG/DL (0.40-0.90); GLUCOSE 88 MG/DL (70-104); LIPASE 25 U/L (16-77); POTASSIUM 3.6 MMOL/L (3.5-5.1); SODIUM 146 MMOL/L (135-145); TOTAL CARBON DIOXIDE 25.9 MMOL/L (24-32); TOTAL PROTEIN 6.1 G/DL (6.4-8.2); eCRCL 58 ML/MIN; eGFR 71 ML/MIN
[2024-07-29 12:57] LABS: C DIFF ANTIGEN NEGATIVE (NEGATIVE); C DIFF SPECIMEN=DIARRHEA? ACCEPTABLE; C DIFFICILE TOXINS A&B NEGATIVE (Neg)
[2024-07-29 13:05] LABS: OCCULT BLOOD STOOL NEGATIVE (Neg)
[2024-07-29] MEDS: dicyclomine 10mg/ml 2ml ampule IM ONE (14:08)
[2024-07-29] MEDS ORDERED: bisacodyl 10mg suppository rectal RC PRN (14:25)
[2024-07-29] MEDS ORDERED: acetaminophen 650mg rectal suppository RC PRN (14:25)
[2024-07-29] MEDS ORDERED: magnesium Cl slow-release 64mg tablet PO PRN (14:25)
[2024-07-29] MEDS ORDERED: magnesium hydroxide 30ml (MOM) UD suspension PO PRN (14:25)
[2024-07-29] MEDS ORDERED: HYDROcodone/acetaminophen 5mg/325mg tablet PO PRN (14:25)
[2024-07-29] MEDS ORDERED: potassium Cl 20 mEq SR tablet PO PRN ×2 (14:25)
[2024-07-29] MEDS ORDERED: potassium Cl 40MEQ/1/2NS 520ml 520 ML IV PRN (14:25)
[2024-07-29] MEDS ORDERED: ondansetron 4mg rapidly disintigrating tab PO PRN ×2 (14:25→19:10)
[2024-07-29] MEDS ORDERED: magnesium sulf-water 2g/50mL 50 ML IV PRN (14:25)
[2024-07-29] MEDS ORDERED: mag hydrox/Alum hydrox/simeth 30ml oral suspension PO PRN (14:25)
[2024-07-29] MEDS ORDERED: magnesium sulf-water 4G/100mL 100 ML IV PRN (14:25)
[2024-07-29] MEDS ORDERED: acetaminophen 325mg tablet PO PRN ×2 (14:25)
[2024-07-29] MEDS ORDERED: morphine 2 MG/ML inj. syringe IV PRN (14:25)
[2024-07-29] MEDS ORDERED: diphenoxylate/atropine tablet (Lomotil) PO PRN (14:30)
[2024-07-29] MEDS: normal saline 1000ml 1,000 ML IV SCH (14:43)
[2024-07-29 14:53] LABS: APTT 29 SECONDS (22-32); PROTHROMBIN TIME 10.3 SECONDS (9.0-12.0)
[2024-07-29 15:00] LABS: C-REACTIVE PROTEIN 0.06 MG/DL (0.0-0.5); CREATINE KINASE 53 U/L (26-192); MAGNESIUM 2.1 MG/DL (1.5-2.4); PHOSPHORUS 4.1 MG/DL (2.3-4.5); PRO BRAIN NATRIURETIC PEPTIDE 138 PG/ML (0-125); THYROID STIMULATING HORMONE 0.91 ulU/ml (0.34-4.50)
[2024-07-29 15:17] LABS: HEMOGLOBIN A1C 6.1 % (4.5-6.2)
[2024-07-29 16:15] VITALS: BP 140/86; PULSE 65; RESP 16; TEMP 98.1; O2SAT 100
[2024-07-29] MEDS ORDERED: acetaminophen 1,000mg/100ml IV 100 ML IV PRN (16:35)
[2024-07-29] MEDS: dextrose 5%-1/2 normal saline 1,000 ML IV SCH (17:34)
[2024-07-29] MEDS: morphine 2 MG/ML inj. syringe IV PRN (17:34)
[2024-07-29 20:00] VITALS: BP 139/83; PULSE 68; RESP 15; TEMP 98.9; O2SAT 100
[2024-07-29] MEDS: K and/or MAG REPLACEMENT MC SCH (20:00)
[2024-07-29] MEDS ORDERED: mesalamine 400 mg capsule.DR PO SCH (20:00)
[2024-07-29] MEDS ORDERED: docusate sod 100mg capsule PO SCH (20:00)
[2024-07-29] MEDS: docusate sod 100mg capsule PO SCH (20:00)
[2024-07-29] MEDS: pantoprazole 40MG/NS 100ML BAG 100 ML IV SCH (20:36)
[2024-07-29] MEDS: methylPREDNISolone sod succ/PF 40mg inj. IV SCH (20:36)
[2024-07-29] MEDS: zolpidem 5mg tablet PO PRN (20:37)
[2024-07-29] MEDS: gabapentin 300mg capsule PO PRN (20:37)
[2024-07-29] MEDS: nicotine 14mg patch - 24hr TD SCH (20:37)
[2024-07-29] MEDS: HYDROcodone/acetaminophen 10/325mg tab PO PRN (20:38)
[2024-07-29] MEDS: heparin, porcine 5000 units/ml vial SQ SCH (20:39)
[2024-07-29 20:45] VITALS: RESP 15; O2SAT 100
[2024-07-29] MEDS ORDERED: temazepam 15mg capsule PO PRN (21:00)
[2024-07-29] MEDS: ondansetron/PF 4mg/2ml inj IV PRN (21:51)
[2024-07-29 22:29] VITALS: BP 100/61; PULSE 70; RESP 18; TEMP 97.7; O2SAT 98
[2024-07-30 06:00] VITALS: BP 107/60; PULSE 71; RESP 18; TEMP 98.4; O2SAT 96
[2024-07-30] MEDS: multivitamins, therapeutics tablet PO SCH (07:18)
[2024-07-30] MEDS: MESALAMINE 800 MG PO SCH (07:20)
[2024-07-30] MEDS: ERGOCALCIFEROL 400 UNIT PO SCH (07:20)
[2024-07-30 08:00] VITALS: RESP 14; O2SAT 96
[2024-07-30] MEDS ORDERED: nicotine 21mg patch - 24 hr TD SCH (08:00)
[2024-07-30] MEDS ORDERED: nicotine 14mg patch - 24hr TD SCH (08:00)
[2024-07-30 08:23] LABS: ALANINE AMINOTRANSFERASE 19 U/L (12-78); ALBUMIN 2.8 G/DL (3.4-5.0); ALKALINE PHOSPHATASE 74 IU/L (46-116); ANION GAP 7 (8-16); ASPARTATE AMINO TRANSFERASE 23 U/L (10-37); BILIRUBIN,TOTAL 0.3 MG/DL (0.1-1.0); BLOOD UREA NITROGEN 6 MG/DL (7-18); BUN/CREATININE RATIO 7.9 (10.0-20.0); CALCIUM 8.4 MG/DL (8.5-10.1); CHLORIDE 105 MMOL/L (99-107); CHOL/HDL RATIO 1.8 (0.00-4.99); CHOLESTEROL 140 MG/DL (0-200); CREATININE 0.76 MG/DL (0.40-0.90); GLUCOSE 199 MG/DL (70-104); HDL CHOLESTEROL 76 MG/DL (35-60); LDL CHOLESTEROL 52 MG/DL (50-100); MAGNESIUM 1.9 MG/DL (1.5-2.4); SODIUM 136 MMOL/L (135-145); TOTAL CARBON DIOXIDE 23.8 MMOL/L (24-32); TOTAL PROTEIN 5.7 G/DL (6.4-8.2); TRIGLYCERIDES 61 MG/DL (20-135); eCRCL 62 ML/MIN; eGFR 77 ML/MIN
[2024-07-30 08:55] LABS: BASOPHILS % (AUTO) 0.3 % (0-1); EOSINOPHILS % (AUTO) 0.1 % (0-6); HEMATOCRIT 33.8 % (35.0-45.0); HEMOGLOBIN 11.2 g/dl (12.0-16.0); LYMPHOCYTES # (AUTO) 1.6 X10'3 (1.1-4.8); LYMPHOCYTES % (AUTO) 24.2 % (21-51); MEAN CORPUSCULAR HEMOGLOBIN 27.4 PG (27.0-31.0); MEAN CORPUSCULAR VOLUME 82.9 FL (78-98); MEAN PLATELET VOLUME 8.8 FL (7.4-10.4); MONOCYTES # (AUTO) 0.4 X10'3 (0-0.9); MONOCYTES % (AUTO) 6.3 % (2-12); NEUTROPHILS # (AUTO) 4.6 X10'3 (1.8-7.7); NEUTROPHILS % (AUTO) 69.1 % (42-75); PLATELET COUNT 377 X10'3 (140-440); RED BLOOD COUNT 4.07 X10'6 (4.20-5.60); RED CELL DISTRIBUTION WIDTH 20.6 % (11.5-14.5); WHITE BLOOD COUNT 6.7 X10'3 (4.5-11.0)
[2024-07-30 09:10] LABS: POTASSIUM 4.2 MMOL/L (3.5-5.1)
[2024-07-30 09:43] LABS: ANISOCYTOSIS 3+; ELLIPTOCYTES FEW; MICROCYTOSIS 1+; PLATELET ESTIMATE NORMAL; POIKILOCYTOSIS FEW
[2024-07-30 10:00] VITALS: BP 134/70; PULSE 73; RESP 17; TEMP 97.1; O2SAT 99
[2024-07-30] MEDS: gabapentin 300mg capsule PO SCH (10:05)
[2024-07-30] MEDS: HYDROmorphone 2mg tablet PO SCH (10:05)
[2024-07-30] MEDS: HYDROmorphone inj. 0.5 MG/0.5 ML DISP.SYRIN IV PRN (14:43)
[2024-07-30 18:00] VITALS: BP 91/57; PULSE 83; RESP 16; TEMP 98.9; O2SAT 97
[2024-07-30 20:00] VITALS: RESP 16; O2SAT 97
[2024-07-30] MEDS: temazepam 15mg capsule PO PRN (20:49)
[2024-07-30 22:00] VITALS: BP 95/50; PULSE 84; RESP 14; TEMP 98.3; O2SAT 95
[2024-07-31 06:00] VITALS: BP 109/61; PULSE 77; RESP 12; TEMP 97.7; O2SAT 98
[2024-07-31 07:33] LABS: BASOPHILS # (AUTO) 0.1 X10'3 (0-0.2); BASOPHILS % (AUTO) 0.7 % (0-1); EOSINOPHILS % (AUTO) 0 % (0-6); HEMATOCRIT 33.1 % (35.0-45.0); HEMOGLOBIN 10.9 g/dl (12.0-16.0); LYMPHOCYTES # (AUTO) 1.5 X10'3 (1.1-4.8); LYMPHOCYTES % (AUTO) 17.3 % (21-51); MEAN CORPUSCULAR HEMOGLOBIN 27.5 PG (27.0-31.0); MEAN CORPUSCULAR HGB CONC 33.1 g/dL (33.0-36.5); MEAN CORPUSCULAR VOLUME 83.1 FL (78-98); MEAN PLATELET VOLUME 8.8 FL (7.4-10.4); MONOCYTES # (AUTO) 0.5 X10'3 (0-0.9); MONOCYTES % (AUTO) 5.8 % (2-12); NEUTROPHILS # (AUTO) 6.7 X10'3 (1.8-7.7); NEUTROPHILS % (AUTO) 76.2 % (42-75); PLATELET COUNT 397 X10'3 (140-440); RED BLOOD COUNT 3.98 X10'6 (4.20-5.60); RED CELL DISTRIBUTION WIDTH 20.6 % (11.5-14.5); WHITE BLOOD COUNT 8.7 X10'3 (4.5-11.0)
[2024-07-31 07:45] LABS: ALANINE AMINOTRANSFERASE 20 U/L (12-78); ALBUMIN 2.8 G/DL (3.4-5.0); ALKALINE PHOSPHATASE 75 IU/L (46-116); ANION GAP 7 (8-16); ASPARTATE AMINO TRANSFERASE 18 U/L (10-37); BILIRUBIN,TOTAL 0.2 MG/DL (0.1-1.0); BLOOD UREA NITROGEN 5 MG/DL (7-18); BUN/CREATININE RATIO 6.3 (10.0-20.0); CALCIUM 8.3 MG/DL (8.5-10.1); CHLORIDE 108 MMOL/L (99-107); GLUCOSE 106 MG/DL (70-104); POTASSIUM 4.3 MMOL/L (3.5-5.1); SODIUM 140 MMOL/L (135-145); TOTAL CARBON DIOXIDE 25.5 MMOL/L (24-32); TOTAL PROTEIN 5.7 G/DL (6.4-8.2); eCRCL 59 ML/MIN; eGFR 72 ML/MIN
[2024-07-31 08:00] VITALS: RESP 16; O2SAT 98
[2024-07-31 10:00] VITALS: BP 110/68; PULSE 75; RESP 15; TEMP 97.6; O2SAT 100
[2024-07-31] MEDS: acetaminophen 1,000mg/100ml IV 100 ML IV PRN (10:02)
[2024-07-31] MEDS ORDERED: docusate sod 100mg capsule PO PRN (15:05)
[2024-07-31] MEDS: LIPASE/PROTEASE/AMYLASE 10,500 units CAPSULE.DR PO SCH (17:52)
[2024-07-31 18:00] VITALS: BP 137/63; PULSE 100; RESP 15; TEMP 98; O2SAT 99
[2024-07-31 20:00] VITALS: RESP 15; O2SAT 99
[2024-07-31] MEDS: metroNIDAZOLE 500mg tablet PO SCH (20:37)
[2024-07-31] MEDS: nicotine 14mg patch - 24hr TD SCH (20:38)
[2024-07-31] MEDS: MESALAMINE 800 MG PO SCH (20:39)
[2024-07-31 22:00] VITALS: BP 90/58; PULSE 70; RESP 16; TEMP 98; O2SAT 96
[2024-08-01 08:00] VITALS: RESP 14; O2SAT 96
[2024-08-01 08:40] LABS: ALANINE AMINOTRANSFERASE 21 U/L (12-78); ALBUMIN 2.9 G/DL (3.4-5.0); ALKALINE PHOSPHATASE 74 IU/L (46-116); ANION GAP 7 (8-16); ASPARTATE AMINO TRANSFERASE 25 U/L (10-37); BASOPHILS # (AUTO) 0.1 X10'3 (0-0.2); BILIRUBIN,TOTAL 0.3 MG/DL (0.1-1.0); BLOOD UREA NITROGEN 5 MG/DL (7-18); CALCIUM 8.2 MG/DL (8.5-10.1); CHLORIDE 107 MMOL/L (99-107); CREATININE 0.84 MG/DL (0.40-0.90); EOSINOPHILS % (AUTO) 0.5 % (0-6); GLUCOSE 77 MG/DL (70-104); HEMATOCRIT 34.6 % (35.0-45.0); HEMOGLOBIN 11.1 g/dl (12.0-16.0); LYMPHOCYTES # (AUTO) 3.9 X10'3 (1.1-4.8); LYMPHOCYTES % (AUTO) 44.2 % (21-51); MAGNESIUM 2.2 MG/DL (1.5-2.4); MEAN CORPUSCULAR HEMOGLOBIN 27.2 PG (27.0-31.0); MEAN CORPUSCULAR HGB CONC 32.1 g/dL (33.0-36.5); MEAN CORPUSCULAR VOLUME 84.9 FL (78-98); MEAN PLATELET VOLUME 9.4 FL (7.4-10.4); MONOCYTES # (AUTO) 0.6 X10'3 (0-0.9); NEUTROPHILS # (AUTO) 4.1 X10'3 (1.8-7.7); NEUTROPHILS % (AUTO) 47.3 % (42-75); PLATELET COUNT 366 X10'3 (140-440); POTASSIUM 4.1 MMOL/L (3.5-5.1); RED BLOOD COUNT 4.08 X10'6 (4.20-5.60); RED CELL DISTRIBUTION WIDTH 20.6 % (11.5-14.5); SODIUM 140 MMOL/L (135-145); TOTAL CARBON DIOXIDE 26.2 MMOL/L (24-32); TOTAL PROTEIN 5.7 G/DL (6.4-8.2); WHITE BLOOD COUNT 8.7 X10'3 (4.5-11.0); eCRCL 56 ML/MIN; eGFR 68 ML/MIN
[2024-08-01 09:23] LABS: ANISOCYTOSIS 3+; BURR CELLS 2+; ELLIPTOCYTES 1+; PLATELET ESTIMATE NORMAL
[2024-08-01 10:00] VITALS: BP 107/62; PULSE 80; RESP 16; TEMP 97.9; O2SAT 97
[2024-08-01] MEDS: HYDROmorphone 1 mg/ml syringe IV PRN (16:39)
[2024-08-01 18:00] VITALS: BP 116/59; PULSE 78; RESP 14; TEMP 97.9; O2SAT 99
[2024-08-01 20:00] VITALS: RESP 14; O2SAT 99
[2024-08-01 22:00] VITALS: BP 94/54; PULSE 73; RESP 17; TEMP 97.6; O2SAT 94
[2024-08-02 06:00] VITALS: BP 84/44; PULSE 66; RESP 18; TEMP 98.6; O2SAT 95
[2024-08-02 07:15] LABS: BASOPHILS # (AUTO) 0.1 X10'3 (0-0.2); BASOPHILS % (AUTO) 0.9 % (0-1); EOSINOPHILS # (AUTO) 0.1 X10'3 (0-0.9); EOSINOPHILS % (AUTO) 0.9 % (0-6); HEMATOCRIT 33.6 % (35.0-45.0); HEMOGLOBIN 10.8 g/dl (12.0-16.0); LYMPHOCYTES # (AUTO) 2.5 X10'3 (1.1-4.8); LYMPHOCYTES % (AUTO) 41.6 % (21-51); MEAN CORPUSCULAR VOLUME 84.4 FL (78-98); MEAN PLATELET VOLUME 9.1 FL (7.4-10.4); MONOCYTES # (AUTO) 0.5 X10'3 (0-0.9); MONOCYTES % (AUTO) 8.9 % (2-12); NEUTROPHILS # (AUTO) 2.9 X10'3 (1.8-7.7); NEUTROPHILS % (AUTO) 47.7 % (42-75); PLATELET COUNT 310 X10'3 (140-440); RED BLOOD COUNT 3.98 X10'6 (4.20-5.60); RED CELL DISTRIBUTION WIDTH 20.4 % (11.5-14.5); WHITE BLOOD COUNT 6.1 X10'3 (4.5-11.0)
[2024-08-02 08:25] VITALS: RESP 16; O2SAT 95
[2024-08-02 09:25] LABS: ALANINE AMINOTRANSFERASE 24 U/L (12-78); ALBUMIN 2.8 G/DL (3.4-5.0); ALKALINE PHOSPHATASE 72 IU/L (46-116); ANION GAP 8 (8-16); ASPARTATE AMINO TRANSFERASE 19 U/L (10-37); BILIRUBIN,TOTAL 0.3 MG/DL (0.1-1.0); CALCIUM 8.4 MG/DL (8.5-10.1); CHLORIDE 108 MMOL/L (99-107); CREATININE 0.92 MG/DL (0.40-0.90); GLUCOSE 98 MG/DL (70-104); MAGNESIUM 2.1 MG/DL (1.5-2.4); POTASSIUM 4.5 MMOL/L (3.5-5.1); SODIUM 142 MMOL/L (135-145); TOTAL PROTEIN 5.5 G/DL (6.4-8.2); eCRCL 51 ML/MIN; eGFR 61 ML/MIN
[2024-08-02 09:42] LABS: BLOOD UREA NITROGEN 5 MG/DL (7-18); BUN/CREATININE RATIO 5.4 (10.0-20.0)
[2024-08-02 10:00] VITALS: BP 111/59; PULSE 93; RESP 16; TEMP 96.9; O2SAT 98
[2024-08-02] MEDS: HYDROmorphone 1 mg/ml syringe IV PRN (13:52)
[2024-08-02 18:00] VITALS: BP 111/64; PULSE 81; RESP 19; TEMP 98.6; O2SAT 98
[2024-08-02] MEDS: ringers solution, lacted 1,000 ML IV ONE (19:44)
[2024-08-02] MEDS: normal saline 1000ml 1,000 ML IV SCH (19:46)
[2024-08-02] MEDS: pantoprazole 40mg Tablet.DR PO SCH (19:47)
[2024-08-02 20:10] VITALS: RESP 16
[2024-08-02 22:00] VITALS: BP 91/56; PULSE 83; RESP 15; TEMP 98; O2SAT 97
[2024-08-03 06:00] VITALS: BP 91/57; PULSE 89; RESP 16; TEMP 98.7; O2SAT 99
[2024-08-03 06:11] LABS: BASOPHILS % (AUTO) 0.5 % (0-1); EOSINOPHILS # (AUTO) 0.1 X10'3 (0-0.9); EOSINOPHILS % (AUTO) 1.1 % (0-6); HEMATOCRIT 31.8 % (35.0-45.0); HEMOGLOBIN 10.5 g/dl (12.0-16.0); LYMPHOCYTES # (AUTO) 2.1 X10'3 (1.1-4.8); LYMPHOCYTES % (AUTO) 31.7 % (21-51); MEAN CORPUSCULAR HEMOGLOBIN 27.8 PG (27.0-31.0); MEAN CORPUSCULAR HGB CONC 33.1 g/dL (33.0-36.5); MEAN CORPUSCULAR VOLUME 83.9 FL (78-98); MONOCYTES # (AUTO) 0.6 X10'3 (0-0.9); MONOCYTES % (AUTO) 8.8 % (2-12); NEUTROPHILS # (AUTO) 3.8 X10'3 (1.8-7.7); NEUTROPHILS % (AUTO) 57.9 % (42-75); PLATELET COUNT 370 X10'3 (140-440); RED BLOOD COUNT 3.79 X10'6 (4.20-5.60); RED CELL DISTRIBUTION WIDTH 20.2 % (11.5-14.5); WHITE BLOOD COUNT 6.5 X10'3 (4.5-11.0)
[2024-08-03 06:30] LABS: ALANINE AMINOTRANSFERASE 22 U/L (12-78); ALBUMIN 2.8 G/DL (3.4-5.0); ALKALINE PHOSPHATASE 77 IU/L (46-116); ANION GAP 4 (8-16); ASPARTATE AMINO TRANSFERASE 17 U/L (10-37); BILIRUBIN,TOTAL 0.3 MG/DL (0.1-1.0); BLOOD UREA NITROGEN 8 MG/DL (7-18); BUN/CREATININE RATIO 8.9 (10.0-20.0); CALCIUM 8.3 MG/DL (8.5-10.1); CHLORIDE 106 MMOL/L (99-107); GLUCOSE 94 MG/DL (70-104); POTASSIUM 4.2 MMOL/L (3.5-5.1); SODIUM 141 MMOL/L (135-145); TOTAL CARBON DIOXIDE 30.9 MMOL/L (24-32); TOTAL PROTEIN 5.6 G/DL (6.4-8.2); eCRCL 52 ML/MIN; eGFR 63 ML/MIN
[2024-08-03 08:25] VITALS: RESP 18
[2024-08-03 10:00] VITALS: BP 150/92; PULSE 98; RESP 23; TEMP 98.4; O2SAT 97
[2024-08-03 13:29] VITALS: RESP 16
[2024-08-09 15:09] LABS: FATS, NEUTRAL Normal (.); FATS, TOTAL Increased (.)
== END 2024-08-03 13:25 | disposition home or self-care (01) | DRG 386 ==
LOC: ER 10:17 → ED HOLD 14:27 → ORTHO 4S 16:15
PROVIDERS: ADMIT Family Medicine; ATTEND Family Medicine
DX: K50.90 Crohn's disease, unspecified, without complications (principal); E87.0 Hyperosmolality and hypernatremia; E86.0 Dehydration; R10.9 Unspecified abdominal pain; I25.10 Atherosclerotic heart disease of native coronary artery without angina pectoris; E78.5 Hyperlipidemia, unspecified; E86.1 Hypovolemia; G89.4 Chronic pain syndrome; K21.9 Gastro-esophageal reflux disease without esophagitis; K57.90 Diverticulosis of intestine, part unspecified, without perforation or abscess without bleeding; Z98.84 Bariatric surgery status; Z90.710 Acquired absence of both cervix and uterus; Z87.11 Personal history of peptic ulcer disease; Z86.711 Personal history of pulmonary embolism; Z88.8 Allergy status to other drugs, medicaments and biological substances; Z90.49 Acquired absence of other specified parts of digestive tract; Z72.0 Tobacco use
CPT/HCPCS: 36415; 71045; 74176; 80053; 80061; 81003; 81025; 82272; 82550; 83036; 83605; 83690; 83735; 83880; 83935; 84100; 84443; 85008; 85025; 85610; 85651; 85730; 86140; 87040; 87045; 87046; 87081; 87324; 87449; 89055; 99285; A6250; G0378; J0131; J0500; J1171; J1644; J2270; J2405; J2470; J2919; J3490; J7030; J7040; J7070; J7120

== ENCOUNTER 2025-01-17 08:48 | Emergency (ER) | payer MEDICARE ==
[~2025-01-17] VITALS: Ht 160 cm; Wt 70.5 kg
[~2025-01-17 08:48] MED LIST changes: -DOCU-148 PO; -HYDR2TAB28 PO
--- NOTE | 2025-01-17 09:12 | ELECTROCARDIOGRAPH REPORT ---
[facility] Test Date: 2025-01-17 Test Time: 09:09:45 Pat Name: RUSSELL JIN Department: EMERGENCY ROOM Room: Gender: F Full Stack Java Developer: RACHELLE : 1960 Requested By: SVETLANA GARZA Order Number: [id number] Reading MD: Dr. Ariel Crowe Measurements Intervals [place] Rate: 137 P: 78 MN: 122 QRS: 100 QRSD: 117 T: 10 QT: 311 QTc: 470 Interpretive Statements Sinus tachycardia RBBB and LPFB Low voltage, precordial leads Electronically Signed On 01-17-2025 19:02:[address] Ariel Crowe Please click the below link to view image of tracing.
--- NOTE | 2025-01-17 09:13 | Physician Documentation ---
History of Present Illness ~ Chief Complaint: Abscess Stated Complaint: BLISTERS Time Seen by MD: 11:40 Primary Medical Doctor: Nic Valdovinos HPI 64-year-old female complaining of a diffuse rash that has appeared all over her body starting about 3-4 days ago. She states that it is very painful and it feels like her skin is burning. It is on her arms, legs back, lips and inside her nose as well. She is unsure what has caused it. She denies any new medications, denies any new soaps or lotions. She does have a history of Crohn's disease for which she takes mesalamine. Day of Onset: Jan 17, 2025 Tetanus Within 5 Years: Yes Medication Reconciliation Allergies: Coded Allergies: metoclopramide (Verified Allergy, Severe, DIFFICULTY BREATHING, 07/29/24) Skin Crawl diphenhydramine (Verified Allergy, Unknown, 07/29/24) Skin Crawl ketorolac (Verified Allergy, Unknown, 07/29/24) prochlorperazine (Verified Adverse Reaction, Unknown, JUMPING LEGS, 07/29/24) Scheduled Ergocalciferol (Vitamin D), 1 CAP PO DAILY, (Reported) Mesalamine (Mesalamine), 1 TAB PO BID, (Reported) Multivitamins (Multivitamins), 1 EACH PO DAILY, (Reported) Nicotine 21 MG Patch* (Habitrol 21 MG Patch*), 1 PATCH TD DAILY Scheduled PRN Gabapentin (Gabapentin), 3-6 CAP PO Q8H PRN for pain, (Reported) ONDANSETRON ODT 4mg tablet (Ondansetron Odt), 1 TAB SL QID PRN for n ausea/vomiting, (Reported) Zolpidem Tartrate (Ambien), 1 TAB PO HSPRN PRN for sleep, (Reported) Past Medical History Past Medical History: Coronary Artery Disease, Pulmonary Embolism, Diverticulosis, GERD, GI Bleed, Inflammatory Bowel Dz, Peptic Ulcer Disease, Anemia, Hernia, Kidney Stones, Chronic Pain, C-Diff, Herpes Zoster, MRSA Abscess Past Surgical History: abdominal surgery, angioplasty, cholecystectomy, c- section, gastric bypass, hysterectomy, other Other Past Surgical History: hernia repair, IVC filter Alcohol Use: None Drug Use: none Lives with: Family Lives In: Home Occupation: employed Review of Systems All Other Systems at this time: Reviewed and Negative Physical Exam Vital Signs: Temperature: 97.8, Source: Temporal, Heart Rate: 151, Respiratory Rate: 18, BP: 182/86, Pulse Oximetry: 99, Weight: 70.450 Physical Exam I have reviewed the triage vitals. CONST: Well developed and well nourished. In no acute distress HENT: Head Atraumatic EYES: Pupils are equal, round and reactive to light. Normal conjunctiva NECK: Normal range of motion. Supple. CARDIO: Normal rate and regular rhythm. No murmurs, rubs, or gallops. S1, S2. PULM/CHEST: No respiratory distress. Lungs clear to auscultation. No wheeze ABD: Soft and nontender. Nondistended. Bowel sounds normal. No guarding. : Exam deferred MSK: No edema. No deformity. NEURO: Alert and oriented to person, place and time. Moving all extremities SKIN: Diffuse excoriated vesicular rash with some lesions that are crusted over on all extremities as well as trunk and face PSYCH: Normal mood and affect. Good eye contact. Progress Results/Orders Results/Orders Orders - PAIGE PEÑA MD Culture Blood (01/17/25 12:43) Prednisone Tablet (Prednisone Tablet) (01/17/25 16:20) Hydromorphone 0.5 Mg/0.5 Ml/Pf (Dilaudid (01/17/25 16:20) Completed Orders - PAIGE PEÑA MD Dexamethasone Inj (Decadron 10mg/Ml Inj) (01/17/25 12:37) Normal Saline 1000ml (Sodium Chloride 10 (01/17/25 12:40) Morphine 2mg/Ml Inj. (Morphine Inj.) (01/17/25 12:40) Lacticsepsis (01/17/25 12:43) Procalcitonin (01/17/25 13:43) Hydromorphone 1 Mg/Ml/Pf (Dilaudid Inj.) (01/17/25 15:15) Normal Saline 500ml Iv Soln (Sodium Chlo (01/17/25 15:15) Medications Received in ER Medications (Trade) Dose Ordered Sig/Edilson Route PRN Reason Start Time Stop Time Status Last Admin Dose Admin (Decadron 10mg/ ml inj) 10 mg ONCE STAT IV 01/17/25 12:37 01/17/25 12:44 DC 01/17/25 13:33 10 MG Sodium Chloride 1,000 ml @ 1,000 mls/hr ONCE ONCE IV 01/17/25 12:40 01/17/25 13:39 DC 01/17/25 13:33 1,000 MLS/HR (morphine inj.) 4 mg ONCE ONCE IV 01/17/25 12:40 01/17/25 12:44 DC 01/17/25 13:34 4 MG (Dilaudid inj.) 1 mg ONCE ONCE IV 01/17/25 15:15 01/17/25 15:16 DC 01/17/25 15:29 1 MG Sodium Chloride 500 ml @ 500 mls/hr ONCE ONCE IV 01/17/25 15:15 01/17/25 16:14 DC 01/17/25 15:29 500 MLS/HR Vital Signs 01/17/25 01/17/25 01/17/25 01/17/25 09:03 13:34 13:41 13:55 Temp 97.8 97.8 Pulse 151 98 Resp 18 16 16 16 B/P (MAP) 182/86 134/83 (100) Pulse Ox 99 99 O2 Flow Rate 0 01/17/25 01/17/25 01/17/25 15:29 15:34 15:34 Temp 97.8 Pulse 97 Resp 16 16 16 B/P (MAP) 147/75 (99) Pulse Ox 98 O2 Flow Rate 0 Laboratory Tests Test 01/17/25 09:40 01/17/25 11:42 01/17/25 13:26 White Blood Count 9.7 Red Blood Count 4.71 Hemoglobin 12.2 Hematocrit 37.2 Mean Corpuscular Volume 79.0 Mean Corpuscular Hemoglobin 25.8 L Mean Corpuscular Hemoglobin Concent 32.6 L Red Cell Distribution Width 20.6 H Platelet Count 489 H Mean Platelet Volume 7.7 Neutrophils (%) (Auto) 64.1 Lymphocytes (%) (Auto) 26.0 Monocytes (%) (Auto) 8.3 Eosinophils (%) (Auto) 0.9 Basophils (%) (Auto) 0.7 Neutrophils # (Auto) 6.2 Lymphocytes # (Auto) 2.5 Monocytes # (Auto) 0.8 Eosinophils # (Auto) 0.1 Basophils # (Auto) 0.1 CBC Comment Platelet Estimate Increased Red Blood Cell Morphology Perf Polychromasia 1+ Hypochromasia 1+ Basophilic Stippling Anisocytosis 1+ Microcytosis 1+ Elliptocytes Few Acanthocytes Few Sodium Level 142 Potassium Level 3.6 Chloride Level 104 Carbon Dioxide Level 26.2 Anion Gap 12 Blood Urea Nitrogen 13 Creatinine 0.75 Estimated GFR/1.73 m2 78 BUN/Creatinine Ratio 17.3 Glucose Level 134 H Calcium Level 9.1 Total Bilirubin 0.5 Aspartate Amino Transf (AST/SGOT) 20 Alanine Aminotransferase (ALT/SGPT) 20 Alkaline Phosphatase 116 Troponin I High Sensitivity 4 5 Pro-B-Type Natriuretic Peptide 47 Total Protein 7.1 Albumin 3.8 Globulin 3.3 Albumin/Globulin Ratio 1.2 Procalcitonin < 0.05 Chemistry Comments Troponin I High Sens Percent Delta 25 Troponin I Hi Sens Absolute Change 1 Lactic Acid Level 1.5 Microbiology Date/Time Source Procedure Growth Status 01/17/25 13:26 Blood Arm Right Blood Culture - Preliminary NEGATIVE (LESS THAN 24 HOURS) Resulted EKG/XRAY/CT/US/VASC/MRI EKG : Additional Comment EKG as interpreted by me shows sinus tachycardia with a rate of 137 beats per minute, no ischemia, normal axis Chest X-Ray : Interpreted By: both Views: 1 VIEW Additional Comments EXAM: DI CHEST,SINGLE VIEW Indication: CP Technique: Single frontal view of the chest was obtained Comparison: DI CHEST,SINGLE VIEW on DOS: 07/29/24, DI CHEST,SINGLE VIEW on DOS: 05/29/24, DI CHEST,SINGLE VIEW on DOS: 09/12/23, DI CHEST,SINGLE VIEW on DOS: 09/13 FINDINGS: Lines and Tubes: None Lungs: No focal consolidation. Pleura: No effusion. No pneumothorax. Cardiomediastinal contours: Unremarkable Bones: No acute osseous abnormality. IMPRESSION: No acute cardiopulmonary disease. Medical Decision Making Additional Comment 64-year-old female presenting with a nonspecific diffuse rash. Differential diagnosis includes but not limited to drug induced rash versus disseminated herpes zoster. Patient is not immunocompromised although she does have Crohn's disease and is on mesalamine. The likelihood of disseminated herpes zoster is low however mesalamine itself can sometimes cause a rash in the settings of Crohn's disease and I believe that there is a higher likelihood of this. The patient's pain was treated with 4 mg of IV morphine and a total of 1.5 mg of IV Dilaudid as well as 10 mg of IV dexamethasone and 40 mg of p.o. prednisone with good improvement of symptoms. On reassessment the patient was more comfortable and was comfortable being discharged home. Patient was initially also very tachycardic but this improved after treatment for her pain and IV fluids. I educated the patient on the findings and advised her that we will treat this symptomatically until symptom resolution. Should symptoms not resolve she needs to follow up closely with her primary care physician or return to the ED if they worsen. She was prescribed a taper course of prednisone and advised to monitor for resolution. Departure Disposition: HOME / SELF CARE / HOMELESS Impression: Primary Impression: Rash and other nonspecific skin eruption Additional Impression: Drug-induced skin rash Condition: Improved Discharge Instructions: Drug Rash Referrals: NO PRIMARY CARE PROVIDER (PCP) Prescriptions Prednisone (Prednisone) 10 Mg Tablet 0 PO DAILY, #42 TABLET Take 6 tabs/day x2 days then 5 daily x2 days 4 daily x2 days 3 daily x2 days 2 daily x2 days 1 daily x2 days then stop. Prov: PAIGE PEÑA MD 01/17/25 Comments Take medication as prescribed. Monitor symptoms for improvement and resolution. Follow up with primary care physician in the next 2-3 days. Return to the ED with any acutely worsening symptoms. Signature Scribe Signature: v Attestation: The note accurately reflects work and decisions made by me.Paige Nicole MD 01/17/25 16:19 The note accurately reflects work and decisions made by me.Svetlana Nicole NP 01/17/25 16:10 SVETLANA GARZA NP Jan 17, 2025 09:13 PAIGE PEÑA MD Jan 17, 2025 12:46
--- NOTE | 2025-01-17 09:42 | RADIOLOGY REPORT ---
EXAM: DI CHEST,SINGLE VIEW Indication: CP Technique: Single frontal view of the chest was obtained Comparison: DI CHEST,SINGLE VIEW on DOS: 07/29/24, DI CHEST,SINGLE VIEW on DOS: 05/29/24, DI CHEST,SINGL E VIEW on DOS: 09/12/23, DI CHEST,SINGLE VIEW on DOS: 09/02/23 FINDINGS: Lines and Tubes: None Lungs: No focal consolidation. Pleura: No effusion. No pneumothorax. Cardiomediastinal contours: Unremarkable Bones: No acute osseous abnormality. IMPRESSION: No acute cardiopulmonary disease.
[2025-01-17 09:51] LABS: BASOPHILS # (AUTO) 0.1 X10'3 (0-0.2); BASOPHILS % (AUTO) 0.7 % (0-1); EOSINOPHILS # (AUTO) 0.1 X10'3 (0-0.9); EOSINOPHILS % (AUTO) 0.9 % (0-6); HEMATOCRIT 37.2 % (35.0-45.0); HEMOGLOBIN 12.2 g/dl (12.0-16.0); LYMPHOCYTES # (AUTO) 2.5 X10'3 (1.1-4.8); MEAN CORPUSCULAR HEMOGLOBIN 25.8 PG (27.0-31.0); MEAN CORPUSCULAR HGB CONC 32.6 g/dL (33.0-36.5); MEAN PLATELET VOLUME 7.7 FL (7.4-10.4); MONOCYTES # (AUTO) 0.8 X10'3 (0-0.9); MONOCYTES % (AUTO) 8.3 % (2-12); NEUTROPHILS # (AUTO) 6.2 X10'3 (1.8-7.7); NEUTROPHILS % (AUTO) 64.1 % (42-75); PLATELET COUNT 489 X10'3 (140-440); RED BLOOD COUNT 4.71 X10'6 (4.20-5.60); RED CELL DISTRIBUTION WIDTH 20.6 % (11.5-14.5); WHITE BLOOD COUNT 9.7 X10'3 (4.5-11.0)
[2025-01-17 10:09] LABS: ALANINE AMINOTRANSFERASE 20 U/L (12-78); ALBUMIN 3.8 G/DL (3.4-5.0); ALBUMIN/GLOBULIN RATIO 1.2 (1.1-1.5); ALKALINE PHOSPHATASE 116 IU/L (46-116); ANION GAP 12 (8-16); ASPARTATE AMINO TRANSFERASE 20 U/L (10-37); BILIRUBIN,TOTAL 0.5 MG/DL (0.1-1.0); BLOOD UREA NITROGEN 13 MG/DL (7-18); BUN/CREATININE RATIO 17.3 (10.0-20.0); CALCIUM 9.1 MG/DL (8.5-10.1); CHLORIDE 104 MMOL/L (99-107); CREATININE 0.75 MG/DL (0.40-0.90); GLUCOSE 134 MG/DL (70-104); POTASSIUM 3.6 MMOL/L (3.5-5.1); SODIUM 142 MMOL/L (135-145); TOTAL CARBON DIOXIDE 26.2 MMOL/L (24-32); TOTAL PROTEIN 7.1 G/DL (6.4-8.2); eCRCL 63 ML/MIN; eGFR 78 ML/MIN
[2025-01-17 10:17] LABS: PRO BRAIN NATRIURETIC PEPTIDE 47 PG/ML (0-125)
[2025-01-17 10:40] LABS: ANISOCYTOSIS 1+; HYPOCHROMASIA 1+; MICROCYTOSIS 1+; PLATELET ESTIMATE INCREASED; POLYCHROMASIA 1+
[2025-01-17 10:41] LABS: ACANTHOCYTES FEW; ELLIPTOCYTES FEW
[2025-01-17] MEDS: dexamethasone sod phosphate 10mg/ml inj IV STA (13:33)
[2025-01-17] MEDS: normal saline 1000ml 1,000 ML IV ONE (13:33)
[2025-01-17] MEDS: morphine 2 MG/ML inj. syringe IV ONE (13:34)
[2025-01-17] MEDS: normal saline 500ml IV soln 500 ML IV ONE (15:29)
[2025-01-17] MEDS: HYDROmorphone 1 mg/ml syringe IV ONE (15:29)
[2025-01-17 15:34] VITALS: TEMP 97.8
[2025-01-17] MEDS ORDERED: PRED10TA23 PO (16:22)
[2025-01-17] MEDS: predniSONE 20 mg tablet PO ONE (16:42)
[2025-01-17] MEDS: HYDROmorphone inj. 0.5 MG/0.5 ML DISP.SYRIN IV ONE (16:42)
[2025-01-17 16:52] VITALS: BP 141/87; PULSE 115; RESP 16; O2SAT 98
[2025-01-18] MEDS ORDERED: iohexol 300mg/ml 100ml inj. ONE (21:49)
[2025-01-18] MEDS ORDERED: PANT20TA18 PO (23:01)
[2025-01-18] MEDS ORDERED: FURO-150 PO (23:01)
[2025-01-18] MEDS ORDERED: HYDR4TAB45 PO (23:01)
[2025-01-18] MEDS ORDERED: TEMA15CA5 PO (23:01)
== END 2025-01-17 16:54 | disposition home or self-care (01) ==
LOC: ER 08:49
DX: R21 Rash and other nonspecific skin eruption (principal); I25.10 Atherosclerotic heart disease of native coronary artery without angina pectoris; K21.9 Gastro-esophageal reflux disease without esophagitis; Z87.440 Personal history of urinary (tract) infections; Z88.8 Allergy status to other drugs, medicaments and biological substances; Z90.49 Acquired absence of other specified parts of digestive tract; Z90.710 Acquired absence of both cervix and uterus; Z98.84 Bariatric surgery status; Z98.890 Other specified postprocedural states
CPT/HCPCS: 36415; 71045; 80053; 83605; 83880; 84145; 84484; 85025; 87040; 93005; 96361; 96374; 96375; 96376; 99285; J1100; J1171; J2270; J7030; J7040; J7512; 85008; Q9967

== ENCOUNTER 2025-01-18 14:58 | Inpatient (IN) | payer MEDICARE ==
[~2025-01-18] VITALS: Ht 160 cm; Wt 73.0 kg
[~2025-01-18 14:58] MED LIST changes: +PRED10TA23 PO
--- NOTE | 2025-01-18 15:42 | Physician Documentation ---
History of Present Illness ~ Chief Complaint: Rash Stated Complaint: RASH Time Seen by MD: 16:47 OK to notify your PCP?: Yes Primary Medical Doctor: Nic Valdovinos Source: patient, RN/, RN notes reviewed, old records Mode of Arrival: POV Exam Limitations: no limitations HPI This is a 64-year-old female with history of Crohn's disease who presents with approximately five days of sores to multiple locations of her body, patient reports that these sores burn. Patient reports he was seen yesterday for the same concern and offered admission to the hospital for pain management however she chose to go home. Patient reports she was started on prednisone however has developed vomiting and diarrhea in his unable to keep her prednisone down along with a Dilaudid that she normally takes for chronic Crohn's related pain. Medication Reconciliation Allergies: Coded Allergies: metoclopramide (Verified Allergy, Severe, DIFFICULTY BREATHING, 01/18/25) Skin Crawl diphenhydramine (Verified Allergy, Unknown, 01/18/25) Skin Crawl ketorolac (Verified Allergy, Unknown, 01/18/25) prochlorperazine (Verified Adverse Reaction, Unknown, JUMPING LEGS, 01/18/25) Scheduled Ergocalciferol (Vitamin D), 1 CAP PO DAILY, (Reported) Furosemide (Lasix), 1 TAB PO DAILY, (Reported) Mesalamine (Mesalamine), 1 TAB PO BID, (Reported) Multivitamins (Multivitamins), 1 EACH PO DAILY, (Reported) Nicotine 21 MG Patch* (Habitrol 21 MG Patch*), 1 PATCH TD DAILY Pantoprazole Sodium (Protonix), 1 TAB PO BID, (Reported) Prednisone* (Prednisone*), 1 TAB PO DAILY Scheduled PRN Gabapentin (Gabapentin), 3-6 CAP PO Q8H PRN for pain, (Reported) ONDANSETRON ODT 4mg tablet (Ondansetron Odt), 1 TAB SL QID PRN for nausea/vomiting, (Reported) Temazepam (Restoril), 2 CAP PO HSPRN PRN for sleep, (Reported) Discontinued Medications Hydromorphone HCl (Dilaudid), 1 TAB PO QID PRN PRN for pain, (Reported) Prednisone (Prednisone), 0 PO DAILY Discontinued Reason: patient no longer taking Zolpidem Tartrate (Ambien), 1 TAB PO HSPRN PRN for sleep, (Reported) Discontinued Reason: patient no longer taking Past Medical History Past Medical History: Coronary Artery Disease, Pulmonary Embolism, Di verticulosis, GERD, GI Bleed, Inflammatory Bowel Dz, Peptic Ulcer Disease, Anemia, Hernia, Kidney Stones, Chronic Pain, C-Diff, Herpes Zoster, MRSA Abscess Past Surgical History: abdominal surgery, angioplasty, cholecystectomy, c-sect ion, gastric bypass, hysterectomy, other Other Past Surgical History: hernia repair, IVC filter Alcohol Use: None Drug Use: none Lives with: Family Lives In: Home Occupation: employed Review of Systems All Other Systems at this time: Reviewed and Negative ROS Sores to body as stated above in the HPI, otherwise all systems are reviewed and negative. Physical Exam Vital Signs: RN Vital Signs have been reviewed: Yes, Temperature: 97.8, Source: Temporal, Heart Rate: 127, Respiratory Rate: 18, BP: 149/89, Pulse Oximetry: 99, Weight: 73.050 Physical Exam VITALS: Reviewed and as above. GENERAL: Alert, nontoxic appearing, no apparent distress. RESPIRATORY: No increased work of breathing, no respiratory distress, speaking in full clear sentences SKIN: Many Sub cm ulcerated wounds to multiple locations including trunk and limbs without involvement of the palms, soles, or mucous membranes. Progress Progress Note 3412: I spoke with Dr. Rodríguez, hospitalist resident, who kindly accepts patient for admission Results/Orders Reviewed/noted all lab results: Yes Results/Orders Orders - FRANCESCO CROWE MD Page Hospitalist (01/18/25 22:43) Fill Out Med Reconciliation (01/18/25 22:43) Completed Orders - FRANCESCO CROWE MD Hydromorphone 1 Mg/Ml/Pf (Dilaudid Inj.) (01/18/25 22:50) Laboratory Tests Test 01/18/25 21:19 01/18/25 23:06 White Blood Count 7.3 Red Blood Count 3.82 L Hemoglobin 9.8 L Hematocrit 30.1 L Mean Corpuscular Volume 78.8 Mean Corpuscular Hemoglobin 25.7 L Mean Corpuscular Hemoglobin Concent 32.7 L Red Cell Distribution Width 20.8 H Platelet Count 395 Mean Platelet Volume 7.9 Neutrophils (%) (Auto) 89.7 H Lymphocytes (%) (Auto) 6.3 L Monocytes (%) (Auto) 3.6 Eosinophils (%) (Auto) 0.2 Basophils (%) (Auto) 0.2 Neutrophils # (Auto) 6.5 Lymphocytes # (Auto) 0.5 L Monocytes # (Auto) 0.3 Eosinophils # (Auto) 0.0 Basophils # (Auto) 0.0 CBC Comment Platelet Estimate Normal Red Blood Cell Morphology Perf Hypochromasia 1+ Basophilic Stippling Anisocytosis 3+ Microcytosis 1+ Elliptocytes Few Acanthocytes Few Erythrocyte Sedimentation Rate 18 Sodium Level 141 Potassium Level 3.7 Chloride Level 107 Carbon Dioxide Level 25.2 Anion Gap 9 Blood Urea Nitrogen 12 Creatinine 0.81 Estimated GFR/1.73 m2 71 BUN/Creatinine Ratio 14.8 Glucose Level 173 H Lactic Acid Level 2.9 H 1.9 Calcium Level 8.7 Magnesium Level 1.9 Total Bilirubin 0.3 Aspartate Amino Transf (AST/SGOT) 12 Alanine Aminotransferase (ALT/SGPT) 21 Alkaline Phosphatase 97 C-Reactive Protein 1.07 H Total Protein 6.0 L Albumin 3.2 L Globulin 2.8 Albumin/Globulin Ratio 1.1 Procalcitonin 1.39 H Chemistry Comments Microbiology Date/Time Source Procedure Growth Status 01/18/25 21:29 Blood Arm Left Blood Culture - Preliminary NO GROWTH AFTER 4 DAYS Resulted Re-Evaluation Re-Evaluation : Re-Evaluation: Improved, Unchanged Progress Patient was seen and examined. Patient was signed out to me for admission. Patient was admitted to the hospitalist service given steroids, pain medications both Tylenol morphine as well as nausea medication Zofran. Ultimately patient seemed to be in quite significant amounts of pain. She was started to be worked up for sepsis for which blood cultures were obtained sedatives such as Valium were also given. Ultimately there was concern about systemic infection failed outpatient therapy as well as pain management of the patient was then admitted for further workup and care. CBC showed some anemia with a hemoglobin of 9.8 creatinine 30.1 WBCs 7.3 suggesting no infectious etiology. Chemistry within normal limits glucose slightly high at 173 LFTs within normal limits C-reactive protein is elevated at 1.07 sed rate is within normal limits at 18. EKG/XRAY/CT/US/VASC/MRI EKG : Intepreting Monitor?: Yes Additional Comment [facility] Test Date: 2025-01-18 Test Time: 21:22:56 Pat Name: RUSSELL JIN Department: [facility] Patient ID: [id number] Room: Gender: F Hospital Security Officer: : 1960 Requested By: SUNDEEP MIJARES Order Number: [id number] Reading MD: Dr. Francesco Crowe Measurements Intervals [place] Rate: 75 P: 36 DE: 131 QRS: 81 QRSD: 129 T: 24 QT: 386 QTc: 432 Interpretive Statements Sinus rhythm Right bundle branch block Electronically Signed On 01-18-2025 22:46:[address] Francesco Crowe Please click the below link to view image of tracing. EKG Date and Time:01/18/252121 Electronically Signed by: FRANCESCO CROWE MD Date and Time: 01/18/252245 Chest X-Ray : Additional Comments Clinical History SEPSIS Comparison CXR on 01/17/2025, 1 images. Technique: frontal chest x-ray Without Contrast RUSSELL JIN [id number] Findings: Heart - normal lungs - no consolidation. linear density right lung base suggest scarring bones - no acute fracture. Other- postoperative changes in the upper abdomen. IVC filter is present. Impression: 1. Linear density right lung base suggest scarring This report was electronically signed by Booker Sanders MD on 01/18/2025 9:56:08 PM. Electronically Signed by:BOOKER SANDERS MD Date & Time: 01/18/252157 CT : Impression Clinical History Abd Pain, CHRON'S DISEASE WITH FLARE, N/V Comparison None Technique: Contiguous axial images were acquired from the domes of the diaphragm to the pubic symphysis after the uneventful administration of IV contrast. Data is reconstructed in the sagittal and coronal planes. All CT scans at this medical facility are performed using dose modulation techniques as appropriate to a performed exam including the following: Automated exposure control was utilized; adjustment of the mA and/or kV according to patient size; and use of iterative reconstruction technique. All CT studies are reported to the Dose Index Registry of the [employer]. Contrast: omni 300 100ml Radiation Dose: CTDI (mGy): 18.07; DLP (mGy-cm): 815.06 RUSSELL JIN [id number] Findings: Lung bases: There is no focal consolidation. Postoperative changes in the stomach Liver: hepatic cyst in the left lobe 5 mm. Mild intrahepatic ductal dilatation.. Gallbladder: cholecystectomy. Kidneys: No kidney stone or hydronephrosis. Spleen: Unremarkable. Pancreas: Unremarkable. Adrenals: Unremarkable. Small bowel: No evidence of bowel obstruction. No mesenteric inflammation. Large bowel: No obstruction or inflammation. colonic diverticula Appendix: not seen. Aorta: No aneurysm IVC filter is present. Bladder: Unremarkable Reproductive: hysterectomy Lymphadenopathy: No enlarged lymph nodes. Bones: No displaced fracture. Peritoneum: No free air. No free fluid. Postoperative changes from ventral hernia repair Impression: 1. No evidence of bowel obstruction. No mesenteric inflammation. 2. Status post cholecystectomy. Mild intrahepatic ductal dilatation. 3. Postoperative changes the stomach 4. Diverticulosis 5. Status post ventral hernia repair 6. IVC filter is present 7. Status post hysterectomy This report was electronically signed by Booker Sanders MD on 01/19/2025 12:11:52 AM. Electronically Signed by:BOOKER SANDERS MD Date & Time: 01/19/25 0014 Medical Decision Making Findings This 64-year-old female presented back to the emergency department with sores to her body after being seen yesterday for the same concern, patient was started on prednisone for the source this is thought to be a reaction to a medication she takes for her Crohn's disease. I discussed this case with Dr. Romero ED attending who saw the patient yesterday, who recommended treating patient's nausea and vomiting symptoms and following previous treatment plan with discharge home if patient was able to maintain oral intake. As patient is on a high dose of Dilaudid regularly for chronic Crohn's related pain she was treated with 16 mg of morphine which she reported some reduction in pain however this did not completely relief for pain therefore adjunctive treatment with 1 g of IV acetaminophen was ordered. Patient was able to tolerate oral intake with small amount of solid food and liquid Decadron without vomiting though did report a feeling of nausea. On reassessment after completion of IV acetaminophen patient continued to report 8/10 pain and feeling of severe nausea and feels she would be unable to tolerate any oral medications. As patient continues to have symptoms not amenable to current treatments further workup will be required and this case has been signed out to ED attending Dr. Crowe. Differential Dx:Considerations: Include: Abscess, Atopic dermatitis, Drug reaction, Erysipelas, Herpes zoster, Psoriaisis, Scabies, Tinea Departure Disposition: ADMITTED INPATIENT Admitted to Inpatient Unit: yes, to hospitalist Admission Level of Care: Med/Surg with Tele Impression: Primary Impression: Rash and nonspecific skin eruption Additional Impression: Exacerbation of Crohn's disease Qualified Codes: K50.918 - Crohn's disease, unspecified, with other complication Condition: Stable Referrals: NO PRIMARY CARE PROVIDER (PCP) Prescriptions Prednisone* (Prednisone*) 20 Mg Tablet 1 TAB PO DAILY for 14 Days, #42 TAB Prov: RONALD,TIN, RES 01/20/25 Education Educated: Patient Educated regarding: diagnosis, need for follow up Signature Scribe Signature: Scribed for Francesco Crowe MD by Jed Avitia . 01/19/25 00:19 Progress Attestation: The note accurately reflects work and decisions made by me.Francesco Crowe MD 01/23/25 00:34 SUNDEEP MIJARES Jan 18, 2025 15:42 FRANCESCO CROWE MD Jan 18, 2025 22:44 JED SEGAL Jan 19, 2025 00:19
[2025-01-18] MEDS ORDERED: ondansetron 4mg rapidly disintigrating tab PO ONE (17:00)
[2025-01-18] MEDS: ondansetron/PF 4mg/2ml inj IV ONE (17:53)
[2025-01-18] MEDS: dexamethasone sod phosphate 10mg/ml inj PO STA (17:55)
[2025-01-18] MEDS: morphine 4 MG/ML inj SYRINge IV ONE ×3 (17:55→21:04)
[2025-01-18] MEDS: acetaminophen 1,000mg/100ml IV 100 ML IV ONE (19:41)
[2025-01-18] MEDS: normal saline 1000ML IV soln IVB ONE (21:00)
[2025-01-18] MEDS: diazepam inj 5 MG/ML inj. IV ONE (21:00)
--- NOTE | 2025-01-18 21:25 | ELECTROCARDIOGRAPH REPORT ---
[facility] Test Date: 2025-01-18 Test Time: 21:22:56 Pat Name: RUSSELL JIN Department: [facility] Patient ID: [facility]-[id number] Room: Gender: F Outboard Motor Inspector: : 1960 Requested By: SUNDEEP MIJARES Order Number: [id number] Reading MD: Dr. Ariel Crowe Measurements Intervals [place] Rate: 75 P: 36 DC: 131 QRS: 81 QRSD: 129 T: 24 QT: 386 QTc: 432 Interpretive Statements Sinus rhythm Right bundle branch block Electronically Signed On 01-18-2025 22:46:[address] Ariel Crowe Please click the below link to view image of tracing.
[2025-01-18 21:47] LABS: BASOPHILS % (AUTO) 0.2 % (0-1); EOSINOPHILS % (AUTO) 0.2 % (0-6); HEMATOCRIT 30.1 % (35.0-45.0); HEMOGLOBIN 9.8 g/dl (12.0-16.0); LYMPHOCYTES # (AUTO) 0.5 X10'3 (1.1-4.8); LYMPHOCYTES % (AUTO) 6.3 % (21-51); MEAN CORPUSCULAR HEMOGLOBIN 25.7 PG (27.0-31.0); MEAN CORPUSCULAR HGB CONC 32.7 g/dL (33.0-36.5); MEAN CORPUSCULAR VOLUME 78.8 FL (78-98); MEAN PLATELET VOLUME 7.9 FL (7.4-10.4); MONOCYTES # (AUTO) 0.3 X10'3 (0-0.9); MONOCYTES % (AUTO) 3.6 % (2-12); NEUTROPHILS # (AUTO) 6.5 X10'3 (1.8-7.7); NEUTROPHILS % (AUTO) 89.7 % (42-75); PLATELET COUNT 395 X10'3 (140-440); RED BLOOD COUNT 3.82 X10'6 (4.20-5.60); RED CELL DISTRIBUTION WIDTH 20.8 % (11.5-14.5); WHITE BLOOD COUNT 7.3 X10'3 (4.5-11.0)
[2025-01-18 21:55] LABS: ALANINE AMINOTRANSFERASE 21 U/L (12-78); ALBUMIN 3.2 G/DL (3.4-5.0); ALBUMIN/GLOBULIN RATIO 1.1 (1.1-1.5); ALKALINE PHOSPHATASE 97 IU/L (46-116); ANION GAP 9 (8-16); ASPARTATE AMINO TRANSFERASE 12 U/L (10-37); BILIRUBIN,TOTAL 0.3 MG/DL (0.1-1.0); BLOOD UREA NITROGEN 12 MG/DL (7-18); BUN/CREATININE RATIO 14.8 (10.0-20.0); C-REACTIVE PROTEIN 1.07 MG/DL (0.0-0.5); CALCIUM 8.7 MG/DL (8.5-10.1); CHLORIDE 107 MMOL/L (99-107); CREATININE 0.81 MG/DL (0.40-0.90); GLUCOSE 173 MG/DL (70-104); MAGNESIUM 1.9 MG/DL (1.5-2.4); POTASSIUM 3.7 MMOL/L (3.5-5.1); SODIUM 141 MMOL/L (135-145); TOTAL CARBON DIOXIDE 25.2 MMOL/L (24-32); eCRCL 58 ML/MIN; eGFR 71 ML/MIN
--- NOTE | 2025-01-18 21:58 | RADIOLOGY REPORT ---
Clinical History SEPSIS Comparison CXR on 01/17/2025, 1 images. Technique: frontal chest x-ray Without Contrast RUSSELL JIN, [id number] Findings: Heart - normal lungs - no consolidation. linear density right lung base suggest scarring bones - no acute fracture. Other- postoperative changes in the upper abdomen. IVC filter is present. Impression: 1. Linear density right lung base suggest scarring This report was electronically signed by Booker Hunter MD on 01/18/2025 9:56:08 PM.
[2025-01-18 22:43] LABS: PLATELET ESTIMATE NORMAL
[2025-01-18 22:44] LABS: ACANTHOCYTES FEW; ANISOCYTOSIS 3+; ELLIPTOCYTES FEW; HYPOCHROMASIA 1+; MICROCYTOSIS 1+
[2025-01-18] MEDS: HYDROmorphone 1 mg/ml syringe IV ONE (22:56)
[2025-01-18] MEDS ORDERED: TEMA15CA5 PO (23:01)
[2025-01-18] MEDS ORDERED: FURO-150 PO (23:01)
[2025-01-18] MEDS ORDERED: HYDR4TAB45 PO (23:01)
[2025-01-18] MEDS ORDERED: PANT20TA18 PO (23:01)
[2025-01-18] MEDS ORDERED: potassium Cl 40MEQ/1/2NS 520ml 520 ML IV PRN (23:35)
[2025-01-18] MEDS ORDERED: magnesium sulf-water 2g/50mL 50 ML IV PRN (23:35)
[2025-01-18] MEDS ORDERED: magnesium Cl slow-release 64mg tablet PO PRN (23:35)
[2025-01-18] MEDS ORDERED: mag hydrox/Alum hydrox/simeth 30ml oral suspension PO PRN (23:35)
[2025-01-18] MEDS ORDERED: magnesium hydroxide 30ml (MOM) UD suspension PO PRN (23:35)
[2025-01-18] MEDS ORDERED: potassium Cl 20 mEq SR tablet PO PRN ×2 (23:35)
[2025-01-18] MEDS ORDERED: acetaminophen 325mg tablet PO PRN (23:35)
[2025-01-18] MEDS ORDERED: magnesium sulf-water 4G/100mL 100 ML IV PRN (23:35)
--- NOTE | 2025-01-19 00:14 | RADIOLOGY REPORT ---
Clinical History Abd Pain, CHRON'S DISEASE WITH FLARE, N/V Comparison None Technique: Contiguous axial images were acquired from the domes of the diaphragm to the pubic symphys is after the uneventful administration of IV contrast. Data is reconstructed in the sagittal and cor onal planes. All CT scans at this medical facility are performed using dose modulation techniques as appropriate t o a performed exam including the following: Automated exposure control was utilized; adjustment of th e mA and/or kV according to patient size; and use of iterative reconstruction technique. All CT studies are reported to the Dose Index Registry of the [employer]. Contrast: omni 300 100ml Radiation Dose: CTDI (mGy): 18.07; DLP (mGy-cm): 815.06 RUSSELL JIN, [id number] Findings: Lung bases: There is no focal consolidation. Postoperative changes in the stomach Liver: hepatic cyst in the left lobe 5 mm. Mild intrahepatic ductal dilatation.. Gallbladder: cholecystectomy. Kidneys: No kidney stone or hydronephrosis. Spleen: Unremarkable. Pancreas: Unremarkable. Adrenals: Unremarkable. Small bowel: No evidence of bowel obstruction. No mesenteric inflammation. Large bowel: No obstruction or inflammation. colonic diverticula Appendix: not seen. Aorta: No aneurysm IVC filter is present. Bladder: Unremarkable Reproductive: hysterectomy Lymphadenopathy: No enlarged lymph nodes. Bones: No displaced fracture. Peritoneum: No free air. No free fluid. Postoperative changes from ventral hernia repair Impression: 1. No evidence of bowel obstruction. No mesenteric inflammation. 2. Status post cholecystectomy. Mild intrahepatic ductal dilatation. 3. Postoperative changes the stomach 4. Diverticulosis 5. Status post ventral hernia repair 6. IVC filter is present 7. Status post hysterectomy This report was electronically signed by Booker Hunter MD on 01/19/2025 12:11:52 AM.
[2025-01-19] MEDS: normal saline 1000ml 1,000 ML IV SCH (00:32)
[2025-01-19] MEDS ORDERED: gabapentin 100mg capsule PO PRN (00:55)
[2025-01-19] MEDS: predniSONE 20 mg tablet PO SCH (01:34)
--- NOTE | 2025-01-19 02:02 | HISTORY AND PHYSICAL-Residence ---
History & Physical Providers to CC Resident Creating Document: LAZARUS ARANA ~ History of Present Illness Primary Medical Doctor: Nic Valdovinos Reason for Admit\Complaint: Skin rash History of Present Illness Patient is a 64-year-old female with a history of Crohn's disease, gastric ulcer, and DVT/PE who came to the ED due to a skin rash. Patient reports that about one week ago she presented with painful skin lesions, present predominantly in her arms trunk and scalp, sparing palms and soles, described as raised and crusty with occasional oozing, varying in size, pain is described as burning, and 10/10 in intensity. She also reports fevers, chills, malaise, body aches and sees 2 days ago she started with nausea and oral intolerance. She does report chronic diarrhea which has not increased in intensity, she denies bloody stools. Allergies: Coded Allergies: metoclopramide (Verified Allergy, Severe, DIFFICULTY BREATHING, 01/18/25) Skin Crawl diphenhydramine (Verified Allergy, Unknown, 01/18/25) Skin Crawl ketorolac (Verified Allergy, Unknown, 01/18/25) prochlorperazine (Verified Adverse Reaction, Unknown, JUMPING LEGS, 01/18/25) Home Medications Home Medications Active Habitrol 21 MG Patch* (Nicotine) 1 Each Patch.td24 1 Patch TD DAILY Reported Lasix (Furosemide) 20 Mg Tablet 1 Tab PO DAILY 30 Days Protonix (Pantoprazole Sodium) 20 Mg Tablet.dr 1 Tab PO BID 30 Days Restoril (Temazepam) 15 Mg Capsule 2 Cap PO HSPRN PRN 30 Days Dilaudid (Hydromorphone HCl) 4 Mg Tablet 1 Tab PO QID PRN PRN 30 Days Vitamin D (Ergocalciferol) 400 Unit Capsule 1 Cap PO DAILY Gabapentin 100 Mg Capsule 3-6 Cap PO Q8H PRN Mesalamine 800 Mg Tablet.dr 1 Tab PO BID Ondansetron Odt (Ondansetron HCl) 4 Mg Tab.rapdis 1 Tab SL QID PRN Multivitamins 1 Each Tablet 1 Each PO DAILY Past Medical History Past Medical History Crohn's disease, gastric ulcer, and DVT/PE Past Surgical History Surgical History Comment IVC filter Hysterectomy Tummy tuck Cholecystectomy Left rotating cuff repair Gastric bypass Family History Family History: F/H of alcoholism FATHER (ETOH), FH: colon cancer MOTHER (LUNG DISEASE, HEART DISEASE, DM), , Age: 90 Past Social History Smoking: Cigarettes (One pack a day for the past 50 years) Alcohol Use: None Drug Use: None Lives with: Spouse Lives In: Home Occupation: retired ROS ROS All systems were reviewed except for pertinent positives mentioned in HPI Exam Vitals: Vital Signs Date Time Temp Pulse Resp B/P (MAP) Pulse Ox O2 Delivery O2 Flow Rate FiO2 01/18/25 22:56 15 01/18/25 15:05 97.8 127 149/89 99 General: General: awake, alert oriented to place, time, and person HEENT: No pallor present, no icterus, moist mucous membranes Neck: No masses and tenderness Resp: Unlabored. Lungs clear to auscultation bilaterally. Heart: Regular Rate and rhythm, normal S1 and S2 without murmur, rub or gallop Abdomen: Soft and non tender no organomegaly, no guarding and rigidity, bowel sounds present Neuro: No weakness in the upper and lower limb muscles, power of the muscles 5/5 bilateral upper and lower muscles, knee reflex present bilaterally. Cranial nerves intact Extremities: No cyanosis,clubbing or edema Skin: She has multiple round ulcerated/crusty lesions in arms, chest, back, face and scalp, varying in size from 0.5 cm to 2 cm, with surrounding swelling, tender to palpation, no purulence observed. Warm and Dry. Diagnostic Data Last Recorded Lab Results: 01/19/25 0239 01/19/25 0239 Advance Care Planning Advanced Care plannin - 30 Minutes Additional Plan Patient is a 64-year-old female with a history of Crohn's disease, gastric ulcer, and DVT/PE who came to the ED due to a skin rash. Admitted evaluation and management of skin rash in the setting of Crohn's disease. Skin rash in the setting of Crohn's disease with suspected superimposed infection Differential diagnoses include but not limited to: Sweet's syndrome, erythema nodosum and pyoderma gangrenosum Lesion characteristics perhaps most consistent with sweet's syndrome Patient denies any recent changes in medications She has been taking mesalamine for several years Procalcitonin and CRP are elevated White count and ESR are unremarkable Will start prednisone p.o. 40 mg b.i.d. IV Ancef q.8h Blood cultures obtained Nausea/vomiting Chronic diarrhea Crohn's disease History of gastric ulcers Crohn's flare up unlikely in view of absence of bloody stools and no change in bowel movements However, steroids were started as above IV Zofran p.r.n. IV NS at 100 cc/hour Restart p.o. meds when tolerating Tobacco abuse Nicotine patch ordered Code Status: Full code DVT prophylaxis: SCDs Nutrition: Regular diet PT: Ordered Prognosis: Guarded Disposition: Admit to surgical unit. Continue medical management Lazarus Rodríguez MD Internal Medicine Resident PGY-1 Date of Service: Jan 19, 2025 Billing Provider: KEILA MORALES MD Common Visit Codes: [id number] INP/OBS CARE (HIGH) Assessment/Plan Assessment Evaluated the patient with the help of residents. Discussed the case with them. Reviewed notes by LAZARUS Herrera. Reviewed his notes and agree with his assessments and plans. I also reviewed the patient's records myself. been reviewed notes by other providers, laboratory data and radiological investigations. 64-year-old with diffuse skin lesions concerning for Crohn's related complications versus infectious versus infection any drug reactions? For now we will treat with steroids, will try to get dermatology opinion. May need transfer to a higher center given the extensive nature of the lesions described. LAZARUS ARANA Jan 19, 2025 02:02 KEILA MORALES MD Jan 19, 2025 06:03
[2025-01-19] MEDS: ceFAZolin/D5W- 1GM premix 50 ML IV SCH (02:10)
[2025-01-19] MEDS: morphine 2 MG/ML inj. syringe IV PRN ×2 (02:11→06:09)
[2025-01-19] MEDS: temazepam 15mg capsule PO PRN (02:11)
[2025-01-19 03:08] LABS: BASOPHILS % (AUTO) 0.2 % (0-1); EOSINOPHILS % (AUTO) 0 % (0-6); HEMATOCRIT 27.1 % (35.0-45.0); LYMPHOCYTES # (AUTO) 0.7 X10'3 (1.1-4.8); LYMPHOCYTES % (AUTO) 11.6 % (21-51); MEAN CORPUSCULAR HEMOGLOBIN 25.9 PG (27.0-31.0); MEAN CORPUSCULAR HGB CONC 33.4 g/dL (33.0-36.5); MEAN CORPUSCULAR VOLUME 77.7 FL (78-98); MEAN PLATELET VOLUME 7.9 FL (7.4-10.4); MONOCYTES # (AUTO) 0.2 X10'3 (0-0.9); NEUTROPHILS # (AUTO) 5.1 X10'3 (1.8-7.7); NEUTROPHILS % (AUTO) 84.2 % (42-75); PLATELET COUNT 356 X10'3 (140-440); RED BLOOD COUNT 3.48 X10'6 (4.20-5.60)
[2025-01-19 03:10] LABS: ALANINE AMINOTRANSFERASE 14 U/L (12-78); ALBUMIN 2.9 G/DL (3.4-5.0); ALBUMIN/GLOBULIN RATIO 1.2 (1.1-1.5); ALKALINE PHOSPHATASE 85 IU/L (46-116); ANION GAP 5 (8-16); ASPARTATE AMINO TRANSFERASE 11 U/L (10-37); BILIRUBIN,TOTAL 0.2 MG/DL (0.1-1.0); BLOOD UREA NITROGEN 10 MG/DL (7-18); BUN/CREATININE RATIO 17.9 (10.0-20.0); CALCIUM 8.3 MG/DL (8.5-10.1); CHLORIDE 111 MMOL/L (99-107); CREATININE 0.56 MG/DL (0.40-0.90); GLUCOSE 138 MG/DL (70-104); MAGNESIUM 1.7 MG/DL (1.5-2.4); SODIUM 141 MMOL/L (135-145); TOTAL CARBON DIOXIDE 25.1 MMOL/L (24-32); TOTAL PROTEIN 5.3 G/DL (6.4-8.2); eCRCL 84 ML/MIN; eGFR > 90 ML/MIN
[2025-01-19] MEDS: DOXYCYCLINE 100MG CAPSULE PO STA (04:45)
[2025-01-19 06:40] LABS: BILIRUBIN,URINE NEGATIVE (Neg); CLARITY,URINE SLIGHTLY CLOUDY (Clear); COLOR,URINE YELLOW (Yellow); GLUCOSE, URINE NEGATIVE (Neg); KETONES,URINE NEGATIVE (Neg); LEUKOCYTE ESTERASE ,URINE NEGATIVE (Neg); NITRITES, URINE NEGATIVE (Neg); OCCULT BLOOD,URINE NEGATIVE (Neg); PH,URINE 7.5 (4.8-8.0); PROTEIN,URINE NEGATIVE (Neg); UROBILINOGEN,URINE 0.2 E.U/dL (0.2-1.0)
[2025-01-19 06:44] LABS: UA COLLECTION TYPE CLN CATCH MIDSTREAM
[2025-01-19 06:47] LABS: BACTERIA,URINE 3+ /HPF (Neg); MUCUS STRANDS NONE SEEN /LPF (Neg); RBC,URINE NONE SEEN /HPF (0-2); SQUAMOUS EPITHELIAL CELL,UR MODERATE /LPF (FEW); WBC,URINE 50-100 /HPF (0-4)
[2025-01-19 07:23] VITALS: BP 131/71; PULSE 65; RESP 16; TEMP 97.4; O2SAT 100
[2025-01-19] MEDS: multivitamins, therapeutics tablet PO SCH (07:40)
[2025-01-19] MEDS: nicotine 21mg patch - 24 hr TD SCH (07:40)
[2025-01-19] MEDS: furosemide 20MG tablet PO SCH (07:40)
[2025-01-19] MEDS: pantoprazole 40mg Tablet.DR PO SCH (07:41)
[2025-01-19] MEDS: docusate sod 100mg capsule PO SCH (07:43)
[2025-01-19] MEDS: K and/or MAG REPLACEMENT MC SCH (07:49)
[2025-01-19 08:00] VITALS: RESP 18; O2SAT 100
[2025-01-19] MEDS ORDERED: mesalamine 400 mg capsule.DR PO SCH (08:00)
[2025-01-19] MEDS: cholecalciferol (vitamin D3) 400 unit (10mcg) tablet PO SCH (09:53)
[2025-01-19 10:00] VITALS: BP 118/74; PULSE 88; RESP 20; TEMP 97.9; O2SAT 99
[2025-01-19] MEDS: HYDROmorphone 2mg tablet PO PRN (10:05)
[2025-01-19] MEDS: ondansetron/PF 4mg/2ml inj IV PRN (14:01)
[2025-01-19] MEDS: HYDROmorphone 1 mg/ml syringe IV PRN (14:04)
[2025-01-19] MEDS: mesalamine 400 mg capsule.DR PO SCH (17:00)
[2025-01-19 18:00] VITALS: BP 110/64; PULSE 86; RESP 18; TEMP 98.3; O2SAT 98
--- NOTE | 2025-01-19 19:49 | PROGRESS NOTE- Residence ---
Progress Note - Resident Providers to CC Resident Creating Document: RONALDBRANDI RYAN ~ Antibiotic Timeout Antibiotic Ordered?: Yes Subjective Patient reported that her rashes over the whole-body especially on the external surface are very burning and painful sensations without having any itchiness, which were associated with joints pains but did not report any changes/starting any new medications association. She needs pain medications. Objective Vital Signs Date Time Temp Pulse Resp B/P (MAP) Pulse Ox O2 Delivery O2 Flow Rate FiO2 01/19/25 17:54 18 01/19/25 10:00 97.9 88 118/74 (89) 99 Room Air 01/19/25 06:50 0 Result Diagram: 01/19/25 0239 01/19/25 0239 Vitals were stable at the moment. General: Well alert, well oriented, not confused, not agitated, not in acute distress, well cooperated during the physical. HEENT: Conjunctive are pink, sclerae clear, no icterus, pupil is equal in both sides, reactive to light, no ear discharge, no pharyngeal erythema or an edema, mouth and lips are moist. Neck: Supple, no JVD, no lymphadenopathy and thyromegaly. Lungs:Equal air entry on both lungs, no additional sounds Heart: S1-S2 regular sinus rhythm and, regular rate, no gallops, no rubs, no murmurs Abdomen: No visible peristalsis, Bowel sounds present on auscultation, soft, nontender, no guarding, no rigidity Extremities: No obvious deformities, no pitting edema bilaterally, capillary refill intact, able to wiggle toes both sides, peripheral pulsations are intact on both sides FLOUR WORKER: No focal neurological deficits, no motor and sensory weakness in all 4 extremities, could move all 4 extremities Musculoskeletal: No joint swelling, deformities, inflammations, and no scoliosis and back tenderness Skin: mutiple open 2-3 x 4-5 cm bleeding papules and ulcers all over her back, buttock, extensor surfaces of limbs, started with bulous, tender to touch, and no plaques and pustules Assessment Assessment A 64-year-old female with a past medical history of established Crohn disease, gastric ulcer, DVT/PE presented with Caudo-pedal distribution of painful papules and ulcers preceded by buolus lesions with the mucosa involvement distributed a ll over the body over a week associated with fever myalgia, arthralgia. Plan Plan A 64-year-old female with a past medical history of established Crohn disease, gastric ulcer, DVT/PE presented with Caudo-pedal distribution of painful papules and ulcers preceded by buolus lesions with the mucosa involvement distributed a ll over the body over a week associated with fever myalgia, arthralgia. # painful generalized Caudo-pedal distributed papules and ulcers - Possible pyoderma gangrenosum VS acrodermatitis enteropathic Vs Ruled out E nodosum Vs Sweet's syndrome # possible superimposed secondary bacterial infection # Established Hx of Crohn's disease # lactic acidosis, elevated procalcitonin- mostly from superimposed skin bacterial infection-resolved -preceded by fever chills and rigors, myalgia arthralgia, diarrhea -Caudo-pedal distribution, spared palms and soles, painful, oral mucosa involvement and diarrhea - zinc deficiency could be common in the Crohn's disease, orders serum level, supplement with p.o. zinc 50 mg daily -the lesion is papules and ulcers in nature, ruled out E nodosum, and absent of Silvery patches ruled out psoriasis which are common in Crohn disease - continue p.o. prednisone 40 mg b.i.d. and home medication mesalamine -continue IV cefazolin q.8 hours -control the pain with IV Dilaudid -blood C&S less than 24 hours showed negative # GI upset possible from Crohn's disease flare up versus gastritis -control the diarrhea, support with IV fluids -no bloody diarrhea reported -continue Crohn's management -steroid can help for the nausea and vomiting, IV Zofran p.r.n. -continue IV normal saline if patient could not tolerate oral -continue home medications appropriately # hypochromic microcytic anemia -hemoglobin stabilized around nine, monitor daily and consider FOBT -mostly from the APOORVA VS anemia of chronic blood loss from Crohn disease -we will study iron once Crohn's status down # hyperglycemia -HGB A1c 6.1 on 07/29/2020, rechecked in the morning -RBS around 130-170 -target should be between 140-180 -daily blood glucose check # nicotine abuse -Strongly advised to quit. Patient voices understanding. -continue nicotine patch 14 mg daily CODE STATUS: Full code DVT prophylaxis: SCDs Analgesia/sedation: IV Dilaudid Lines/tubes: Peripheral IV Nutrition: Regular Prognosis: Guarded Disposition: Continue medical management including Crohn disease management, pain control, skin infection controlled and wound care, fluid replacement for diarrhea, PT eval and DC plan. Resident MD attestation: Patient was seen and examined with attending MD, Dr. Chandana CARDENAS MD Internal Medicine Resident, PGY2 [facility] Date of Service: Jan 19, 2025 Billing Provider: DORETHA MEDINA MD Common Visit Codes: [id number] INP/OBS CARE(HIGH) SHELBY CARDENAS, BRANDI Jan 19, 2025 19:49 DORETHA MEDINA MD Jan 19, 2025 21:16
[2025-01-19] MEDS ORDERED: enoxaparin 40mg/0.4ml syringe SQ SCH (20:00)
[2025-01-19] MEDS: zinc sulfate 220mg capsule PO SCH (20:13)
[2025-01-19 22:00] VITALS: BP 126/57; PULSE 91; RESP 16; TEMP 97.8; O2SAT 96
[2025-01-20 04:57] LABS: HEMOGLOBIN A1C 6.1 % (4.5-6.2)
[2025-01-20 05:07] LABS: ALANINE AMINOTRANSFERASE 14 U/L (12-78); ALBUMIN 2.7 G/DL (3.4-5.0); ALBUMIN/GLOBULIN RATIO 1.1 (1.1-1.5); ALKALINE PHOSPHATASE 79 IU/L (46-116); ANION GAP 8 (8-16); ASPARTATE AMINO TRANSFERASE 10 U/L (10-37); BASOPHILS % (AUTO) 0.2 % (0-1); BILIRUBIN,TOTAL 0.2 MG/DL (0.1-1.0); BLOOD UREA NITROGEN 9 MG/DL (7-18); BUN/CREATININE RATIO 14.1 (10.0-20.0); CALCIUM 8.3 MG/DL (8.5-10.1); CHLORIDE 114 MMOL/L (99-107); CREATININE 0.64 MG/DL (0.40-0.90); EOSINOPHILS % (AUTO) 0 % (0-6); GLUCOSE 144 MG/DL (70-104); HEMATOCRIT 27.1 % (35.0-45.0); HEMOGLOBIN 8.9 g/dl (12.0-16.0); LYMPHOCYTES # (AUTO) 0.9 X10'3 (1.1-4.8); LYMPHOCYTES % (AUTO) 12.6 % (21-51); MAGNESIUM 1.8 MG/DL (1.5-2.4); MEAN CORPUSCULAR HEMOGLOBIN 25.7 PG (27.0-31.0); MEAN CORPUSCULAR HGB CONC 32.8 g/dL (33.0-36.5); MEAN CORPUSCULAR VOLUME 78.4 FL (78-98); MEAN PLATELET VOLUME 8.3 FL (7.4-10.4); MONOCYTES # (AUTO) 0.5 X10'3 (0-0.9); MONOCYTES % (AUTO) 7.1 % (2-12); NEUTROPHILS % (AUTO) 80.1 % (42-75); PLATELET COUNT 385 X10'3 (140-440); POTASSIUM 3.8 MMOL/L (3.5-5.1); RED BLOOD COUNT 3.45 X10'6 (4.20-5.60); RED CELL DISTRIBUTION WIDTH 20.8 % (11.5-14.5); SODIUM 145 MMOL/L (135-145); TOTAL CARBON DIOXIDE 23.5 MMOL/L (24-32); TOTAL PROTEIN 5.2 G/DL (6.4-8.2); WHITE BLOOD COUNT 7.5 X10'3 (4.5-11.0); eCRCL 73 ML/MIN; eGFR > 90 ML/MIN
[2025-01-20 06:00] VITALS: BP 101/69; PULSE 71; RESP 18; TEMP 97.6; O2SAT 97
[2025-01-20 08:00] VITALS: RESP 16; O2SAT 96
[2025-01-20] MEDS ORDERED: vancomycin/NS 1 GM ADD-VANTAGE 250 ML IV SCH (08:00)
[2025-01-20] MEDS: VANCOMYCIN 1.75GM/WATER FOR INJ (PEG) 350 ML IVPB IV ONE (08:10)
[2025-01-20 10:00] VITALS: BP 140/75; PULSE 77; RESP 16; TEMP 98; O2SAT 100
[2025-01-20] MEDS ORDERED: PRED20TA PO (11:42)
[2025-01-20 12:15] VITALS: RESP 16
--- NOTE | 2025-01-20 17:58 | DISCHARGE SUMMARY-Residence ---
Discharge Summary Providers to CC Resident Creating Document: SHELBY CARDENAS RES ~ Discharge Summary Admission Diagnosis: COLITIS Hospital Course DATE OF ADMISSION: 01/18/2025 DATE OF DISCHARGE: 01/20/2025 Discharge Diagnosis\Comment: # painful generalized Caudo-pedal distributed papules and ulcers - Possible pyoderma gangrenosum VS acrodermatitis enteropathic ulcers Vs Ruled out erythema nodosum Vs Sweet's syndrome # possible superimposed secondary bacterial infection # Established Hx of Crohn's disease # lactic acidosis, elevated procalcitonin- mostly from superimposed skin bacterial infection-resolved # GI upset possible from Crohn's disease flare up Vs gastritis # hypochromic microcytic anemia # hyperglycemia on prednisone # nicotine abuse Operations\Procedures: None Consultants: None Complications: None Condition on DC: Stable New Medications: Prednisone* (Prednisone*) 20 Mg Tablet 1 TAB PO DAILY for 14 Days, #42 TAB Continued Medications: Ergocalciferol (Vitamin D) 400 Unit Capsule 1 CAP PO DAILY, CAP 0 Refills Furosemide (Lasix) 20 Mg Tablet 1 TAB PO DAILY for 30 Days, #30 TAB 0 Refills Gabapentin (Gabapentin) 100 Mg Capsule 3-6 CAP PO Q8H PRN for pain, CAP 0 Refills Mesalamine (Mesalamine) 800 Mg Tablet.dr 1 TAB PO BID, TAB 0 Refills Multivitamins (Multivitamins) 1 Each Tablet 1 EACH PO DAILY, TAB Nicotine 21 MG Patch* (Habitrol 21 MG Patch*) 1 Each Patch.td24 1 PATCH TD DAILY, #30 PATCH ONDANSETRON ODT 4mg tablet (Ondansetron Odt) 4 Mg Tab.rapdis 1 TAB SL QID PRN for nausea/vomiting Pantoprazole Sodium (Protonix) 20 Mg Tablet.dr 1 TAB PO BID for 30 Days, #30 TAB 0 Refills Temazepam (Restoril) 15 Mg Capsule 2 CAP PO HSPRN PRN for sleep for 30 Days, #30 CAP 0 Refills Discontinued Medications: Hydromorphone HCl (Dilaudid) 4 Mg Tablet 1 TAB PO QID PRN PRN for pain for 30 Days, #120 TAB 0 Refills Discharge Summary: A 64-year-old female with a past medical history of established chronic disease, gastritis ulcer, DVT/PE presented with caudo-pedal distribution of painful papules and ulcers preceded by bolus lesions including the mucosal involvement all over the body over week associated with fever, myalgia , diarrhea, and arthralgia. Hospital course: She was admitted to the hospital for her painful generalized skin eruptions in the establish his past medical history of Crohn's disease for the further management and investigations. The skin erosions were preceded by fever with chills, myalgia arthralgia and a diarrhea. Started from the scab head and neck, Caudo-pedal distribution, spared palms and soles, painful, oral mucosa involvement. For her painful rash, and was controlled with p.o. prednisone 40 mg b.i.d. as much as possible and continue all of her home medications especially for the Crohn disease including mesalamine after medication reconciliation were done appropriately. She was also given with IV cefazolin q.8 hours for the possible superimposed bacterial infections over the open g eneralized skin eruptions and her pain was controlled with IV Dilaudid and morphine as needed. The rashes could be possibly due to pyoderma gangrenosa which is commonly associated with the Crohn disease versus it could dermatitis enterohepatic rashes which were associated with the same deficiency and Crohn disease with chronic diarrhea for which she was supplied with p.o. zinc 50 mg daily. Her blood C&S and urine culture show negative result in 24 hours after taken. Her diarrhea were controlled during her hospitalization, supported with IV fluid replacement. There were no bloody diarrhea. Her chronic hypochromic microcytic anemia should be addressed with iron study in the outpatient setting and replace accordingly. Her HGB A1c was 6.1 on 07/29/2020 recheck HGB A1c showed 6.1 on 01/20/2025. Her RBS were ranging around 130-170. She was strongly advised to quit smoking and using nicotine as much as possible and given nicotine patch 14 mg daily. Her DVT prophylaxis was achieved with the SCDs. Patient did not complain of any lower UTI symptoms during her stay except for the pain over the skin eruptions and her UA showed only asymptomatic pyuria. Today, all of her labs were reviewed which were normalizing and WNL with hemoglobin 8.9, hematocrit 27.1, glucose 138, lactic acid was trending down to 1.9. On exam, General: Well alert, well oriented, not confused, not agitated, not in acute distress, well cooperated during the physical. HEENT: Conjunctive are pink, sclerae clear, no icterus, pupil is equal in both sides, reactive to light, no ear discharge, no pharyngeal erythema or an edema, mouth and lips are moist. Neck: Supple, no JVD, no lymphadenopathy and thyromegaly. Lungs:Equal air entry on both lungs, no additional sounds Heart: S1-S2 regular sinus rhythm and, regular rate, no gallops, no rubs, no murmurs Abdomen: No visible peristalsis, Bowel sounds present on auscultation, soft, nontender, no guarding, no rigidity Extremities: No obvious deformities, no pitting edema bilaterally, capillary refill intact, able to wiggle toes both sides, peripheral pulsations are intact on both sides COMMUNITY HEALTH SPECIALIST: No focal neurological deficits, no motor and sensory weakness in all 4 extremities, could move all 4 extremities Musculoskeletal: No joint swelling, deformities, inflammations, and no scoliosis and back tenderness Skin: mutiple open 2-3 x 4-5 cm bleeding papules and ulcers all over her back, b uttock, extensor surfaces of limbs, started with bulous, tender to touch, and no plaques and pustules Discharge instructions: - immediate return to the ER for the any emergency situation etc -follow up with the PCP and infrastructure software engineer for her painful rash within 1-2 weeks after discharge -continue PO Prednisone 60 mg daily and continue PO Zinc therapy as per Dermatology recommendation. -continue the pain control for the rash appropriately Resident MD attestation: Patient was seen and examined with attending MD, Dr. Chandnaa CARDENAS MD Internal Medicine Resident, PGY2 [facility] *Problems/Diagnosis: (1) Rash and nonspecific skin eruption Status: Acute (2) Crohn's disease Status: Chronic Total Time Spent on D/C: > 30 Minutes Date of Service: January 20, 2025 Billing Provider: DORETHA MEDINA MD Common Visit Codes: [id number]-[id number] DISCH DAY >30min SHELBY CARDENAS RES January 20, 2025 17:57 DORETHA MEDINA MD January 20, 2025 21:19
[2025-01-20] MEDS ORDERED: VANCOmycin 1250MG/NS 250ml Bag 250 ML IV SCH (20:00)
[2025-01-22] MEDS ORDERED: VANCOMYCIN LEVEL IV ONE (07:30)
== END 2025-01-20 13:10 | disposition home or self-care (01) | DRG 603 ==
LOC: ER 14:59 → ED HOLD 23:35 → SUR 3N 01-19 07:13
PROVIDERS: ADMIT Internal Medicine Critical Care Medicine; ATTEND Internal Medicine
PROC: BW211ZZ Computerized Tomography (CT Scan) of Abdomen and Pelvis using Low Osmolar Contrast (ICD-10-PCS; principal; 2025-01-18)
DX: L88 Pyoderma gangrenosum (principal); K50.90 Crohn's disease, unspecified, without complications; E87.20 Acidosis, unspecified; L98.2 Febrile neutrophilic dermatosis [Sweet]; L30.8 Other specified dermatitis; D50.8 Other iron deficiency anemias; R73.9 Hyperglycemia, unspecified; I25.10 Atherosclerotic heart disease of native coronary artery without angina pectoris; K21.9 Gastro-esophageal reflux disease without esophagitis; Z86.711 Personal history of pulmonary embolism; Z87.11 Personal history of peptic ulcer disease; Z90.710 Acquired absence of both cervix and uterus; Z90.49 Acquired absence of other specified parts of digestive tract; Z98.84 Bariatric surgery status; Z95.828 Presence of other vascular implants and grafts; Z88.8 Allergy status to other drugs, medicaments and biological substances; Z79.899 Other long term (current) drug therapy
CPT/HCPCS: 36415; 71045; 74177; 80053; 81001; 83036; 83605; 83735; 84145; 84630; 85008; 85025; 85651; 86140; 87040; 87077; 87081; 87088; 87186; 93005; 96361; 96365; 96375; 96376; 99285; A6258; G0378; J0131; J0690; J1100; J1171; J2270; J2405; J3372; J7030; J7512

== ENCOUNTER 2025-04-23 11:56 | Emergency (ER) | payer MEDICARE ==
[~2025-04-23] VITALS: Ht 160 cm; Wt 6.8 kg
[~2025-04-23 11:56] MED LIST changes: +FERR-119 PO; +LIPA1CAP32 PO; +LORA-269; +ONDA-103 PO; +PANT20TA18 PO; -PRED10TA23 PO; +ZOLP-679 PO; -ZOLP5TAB2 PO
[2025-04-23 11:59] VITALS: TEMP 98
--- NOTE | 2025-04-23 12:25 | Physician Documentation ---
History of Present Illness ~ Chief Complaint: Diarrhea Stated Complaint: DIARRHEA/ALL OVER BODY PAIN Time Seen by MD: 12:09 Primary Medical Doctor: Nic Valdovinos This is a pleasant 64-year-old female who presents for evaluation of diffuse abdominal pain and diarrhea. She has been admitted to our facility and discharged yesterday after five days stay when she was evaluated for same. She states that her stool was formed when she was discharged, however overnight she had developed diarrhea has not had multiple episodes of dark runny stool. The particular palliating or aggravating factors. She does not endorse all over body aches, generalized weakness. She has to rest after minimal activity. Denies any chest pain or difficulty breathing. The patient is rather worried and states there is something terribly terribly terribly wrong with the me. No concern for tobacco, alcohol or illicit substances use. She has a known history of Crohn's disease, had seen Dr. Lucero for the last 15 years, however now because of difficulty understanding his accent she requested referral to a different GI specialist. Medication Reconciliation Allergies: Coded Allergies: metoclopramide (Verified Allergy, Severe, DIFFICULTY BREATHING, 04/23/25) Skin Crawl diphenhydramine (Verified Allergy, Unknown, 04/23/25) Skin Crawl ketorolac (Verified Allergy, Unknown, 04/23/25) prochlorperazine (Verified Adverse Reaction, Unknown, JUMPING LEGS, 04/23/25) Scheduled Ergocalciferol (Vitamin D), 1 CAP PO DAILY, (Reported) Ferrous Sulfate (Iron), 1 TAB PO Q12H Lipase/Protease/Amylase (Latasha Adames 2,600 Unit Cap), 1 CAPSULE PO TID Mesalamine (Mesalamine), 1 TAB PO BID, (Reported) Multivitamins (Multivitamins), 1 EACH PO DAILY, (Reported) Nicotine 21 MG Patch* (Habitrol 21 MG Patch*), 1 PATCH TD DAILY Pantoprazole Sodium (Protonix), 1 TAB PO BID, (Reported) Scheduled PRN Gabapentin (Gabapentin), 3-6 CAP PO Q8H PRN for pain, (Reported) ONDANSETRON ODT 4mg tablet (Ondansetron Odt), 1 TAB SL QID PRN for nausea/vomiting, (Reported) Ondansetron HCl (Ondansetron HCl), 1 TAB PO Q4HPRN PRN for nausea/vomiting Zolpidem Tartrate (Ambien), 1 TAB PO HSPRN PRN for sleep, (Reported) Miscellaneous Medications Hydromorphone HCl (Hydromorphone HCl), 1 TAB PO, (Reported) Lorazepam (Ativan), (Reported) Oxycodone Hcl/Acetaminophen (Oxycodone-Acetaminophen 10-325), (Reported) Discontinued Medications Furosemide (Lasix), 1 TAB PO DAILY, (Reported) Temazepam (Restoril), 2 CAP PO HSPRN PRN for sleep, (Reported) Discontinued Reason: patient no longer taking Past Medical History Past Medical History: Coronary Artery Disease, Pulmonary Embolism, Diverticulosis, GERD, GI Bleed, Inflammatory Bowel Dz, Peptic Ulcer Disease, Anemia, Hernia, Kidney Stones, Chronic Pain, C-Diff, Herpes Zoster, MRSA Abscess Past Surgical History: abdominal surgery, angioplasty, cholecystectomy, c- section, gastric bypass, hysterectomy, other Other Past Surgical History: hernia repair, IVC filter Patient History: F/H of alcoholism FATHER (ETOH), FH: colon cancer MOTHER (LUNG DISEASE, HEART DISEASE, DM), , Age: 90 Metastatic neoplastic disease (mother has metastatic cancer) Alcohol Use: None Drug Use: none Lives with: Spouse, Family Lives In: Home Occupation: retired Review of Systems ROS 10 point review of systems was performed and unless noted above in HPI is negative for acute process/complaint. Physical Exam Vital Signs: Temperature: 98.0, Source: Temporal, Heart Rate: 117, Respiratory Rate: 18, BP: 125/80, Pulse Oximetry: 98, Weight: 6.820 Oxygen Flow Rate: 0 Physical Exam Physical examination: GENERAL: Awake, alert, oriented, GCS 15, no apparent distress, non-toxic appearing, answers questions, follows commands appropriately. HEENT: Atraumatic, normocephalic, pupils equal, extraocular muscles intact Active gross movements, sclerae anicteric, mucus membranes moist, no stridor. NECK: Midline, no JVD CARDIOVASCULAR: Good skin perfusion without evidence of pallor, mottling. PULMONARY: Nonlabored, symmetric chest rise, no audible wheezing, no accessory muscle use, no respiratory distress, speaking in full sentences. GASTROINTESTINAL: Not distended. NEUROLOGIC: Lucid with normal mental status. Normal facial symmetry. Moves all extremities symmetrically and with purpose. No truncal ataxia. Speech is fluid without evidence of dysarthria or aphasia, no focal deficits appreciated. EXTREMITIES: Acute deformities Skin: warm, dry PSYCHIATRIC: Normal affect, normal insight, normal concentration. Focused exam: [] Progress Results/Orders Results/Orders Orders - EVA HARDY DO Culture Blood (04/23/25 12:17) Monitor (04/23/25 12:17) Saline Lock (04/23/25 12:17) Ct Abdomen Pelvis (04/23/25 12:17) Completed Orders - EVA HARDY DO Electrocardiogram (04/23/25 12:17) Lipase (04/23/25 12:17) C-Reactive Protein (04/23/25 12:17) PHOS (04/23/25 12:17) Urinalysis, Cult If Indicated (04/23/25 12:17) MG (04/23/25 12:17) Normal Saline 1000ml (0.9% Sodium Chlori (04/23/25 12:20) Ct Abdomen Pelvis (04/23/25 12:17) CMP (04/23/25 12:17) Hs Troponin I W Calculations (04/23/25 12:17) Hs Troponin I W Calculations (04/23/25 14:17) Lacticsepsis (04/23/25 12:17) Occult Bld Stool (04/23/25 12:36) Cbc/Diff (04/23/25 13:50) ESR (04/23/25 13:50) Iohexol 300mg/Ml 100ml Inj. (Omnipaque-3 (04/23/25 14:15) Hydromorphone 1 Mg/Ml/Pf (Dilaudid Inj.) (04/23/25 14:20) Man Diff (04/23/25 14:18) Medications Received in ER Medications (Trade) Dose Ordered Sig/Edilson Route PRN Reason Start Time Stop Time Status Last Admin Dose Admin (0.9% sodium chloride (NS) 1000ml IV soln) 1,000 ml ONCE ONCE IVB 04/23/25 12:20 04/23/25 12:21 DC 04/23/25 14:00 1,000 ML (Dilaudid inj.) 1 mg ONCE ONCE IV 04/23/25 14:20 04/23/25 14:21 DC 04/23/25 14:45 1 MG Vital Signs 04/23/25 04/23/25 04/23/25 04/23/25 11:59 12:42 14:09 14:45 Temp 98.0 Pulse 117 92 Resp 18 16 16 16 B/P (MAP) 125/80 142/86 (104) Pulse Ox 98 98 O2 Flow Rate 0 0 04/23/25 16:00 Pulse 89 Resp 16 B/P (MAP) 133/77 (95) Pulse Ox 99 O2 Flow Rate 0 Laboratory Tests Test 04/23/25 12:38 04/23/25 12:40 04/23/25 12:51 04/23/25 13:43 Stool Occult Blood Negative Sodium Level 142 Potassium Level 3.3 L Chloride Level 108 H Carbon Dioxide Level 24.4 Anion Gap 10 Blood Urea Nitrogen 4 L Creatinine 0.66 Estimated GFR/1.73 m2 90 BUN/Creatinine Ratio 6.1 L Glucose Level 117 H Calcium Level 9.0 Phosphorus Level 4.0 Magnesium Level 2.0 Total Bilirubin 0.4 Aspartate Amino Transf (AST/SGOT) 20 Alanine Aminotransferase (ALT/SGPT) 21 Alkaline Phosphatase 84 Troponin I High Sensitivity 5 5 C-Reactive Protein 0.25 Total Protein 6.3 L Albumin 3.2 L Globulin 3.1 Albumin/Globulin Ratio 1.0 L Lipase 22 Chemistry Comments CBC Comment Lactic Acid Level 1.3 Troponin I High Sens Percent Delta 0 Troponin I Hi Sens Absolute Change 0 Test 04/23/25 14:18 04/23/25 14:40 White Blood Count 6.8 Red Blood Count 3.79 L Hemoglobin 9.4 L Hematocrit 28.7 L Mean Corpuscular Volume 75.8 L Mean Corpuscular Hemoglobin 24.8 L Mean Corpuscular Hemoglobin Concent 32.7 L Red Cell Distribution Width 21.1 H Platelet Count 419 Mean Platelet Volume 7.9 Neutrophils (%) (Auto) Lymphocytes (%) (Auto) Monocytes (%) (Auto) Eosinophils (%) (Auto) Basophils (%) (Auto) Neutrophils # (Auto) Lymphocytes # (Auto) Monocytes # (Auto) Eosinophils # (Auto) Basophils # (Auto) CBC Comment Differential Total Cells Counted 100 Neutrophils % (Manual) 82.0 H Lymphocytes % (Manual) 12.0 L Monocytes % (Manual) 6.0 Platelet Estimate Normal Red Blood Cell Morphology Perf Basophilic Stippling Anisocytosis 3+ Microcytosis 1+ Erythrocyte Sedimentation Rate 22 Urine Specimen Description Cln catch midstream Urine Color Yellow Urine Clarity Clear Urine pH 7.0 Urine Specific Hiller 1.010 Urine Protein Negative Urine Glucose (UA) Negative Urine Ketones Negative Urine Occult Blood Negative Urine Nitrite Negative Urine Bilirubin Negative Urine Urobilinogen 0.2 Urine Leukocyte Esterase Negative Urine Culture Indicated Not ind Volume Urine Centrifuged 10 ml Urine Comment EKG/XRAY/CT/US/VASC/MRI EKG : Additional Comment EKG was obtained and interpreted by myself shows sinus rhythm of 105, normal NE interval, wide QRS with a right bundle, no QT prolongation, normal axis, no STEMI Medical Decision Making Findings Facility Status: [facility], [facility] process The plan was discussed with the patient, who demonstrates clear understanding of the plan and is in agreement with the plan unless otherwise noted in the chart. All questions have been answered, all concerns were addressed unless otherwise documented. I was available throughout their ED stay for frequent reassessment and questions. Differential Diagnoses (considered and possible or likely): [Differential diagnosis considered includes Crohn's flare, dehydration, electrolyte derangement, less likely acute appendicitis, acute cholecystitis, pancreatitis, gastritis, PUD, diverticulitis, mesenteric ischemia, abdominal aortic aneurysm, bowel obstruction, enteritis, colitis, fecal impaction, volvulus, IBS, inflammatory bowel disease, specific food intolerance, peritonitis, perforated viscous, malignancy, UTI, abscess, and abdominal pain NOS. Pelvic source of pain was also considered including endometritis, dysmenorrhea, ovarian cyst, ovarian torsion, PID, TOA, cervicitis, vaginitis, or uterine fibroid. History, physical exam, and workup exclude many of the more serious causes listed above. ] ??Differential Diagnoses (considered and unlikely, not requiring evaluation currently): [See above] MDM Data Please see HPI for the following: Independent Historians and external Records Review. Historian: [Patient] Independent Historians: ?[Record review] Medication Management: [Reviewed medication list] Social History and determinants: [Reviewed] Please see the body of the note for the following: Any independent interpretations of ECG, imaging studies. All vitals signs/haemodynamics, ordered tests were independently reviewed and interpreted by myself. Nursing triage complaint and vitals reviewed, additional nursing notes were reviewed as available and I agree unless otherwise noted or documented in contradiction in the chart Vital Signs: Independently reviewed Labs: Independently interpreted Imaging: Independently interpreted Old Medical Records: Independently reviewed, see HPI for relevant summary and information Pulse Oximetry: [98%] interpreted as [normal on room air] by me [Motor Mechanic: [Regular Rate, Regular rhythm, no ectopy, NSR] reviewed and interpreted by me] Additionally notably showing: [Hemodynamics reviewed. The patient isn't febrile, initially tachycardic, no evidence of hypotension respiratory distress. Tachycardia had resolved with the pain palliation. Laboratory studies reviewed. CBC shows no leukocytosis, anemia of 9.4. This is stable from prior. ESR is within normal range metabolic panel shows very mild hypokalemia. Normal lipase. Two normal troponins. Normal lactic acid. UA is nondiagnostic for UTI. However the stool occult is negative. Advanced imaging was repeated. There was no acute abdominal or pelvic process. Diverticulosis without diverticulitis. Colitis noted. Confirms history of inflammatory bowel disease.] Tests considered but not ordered include: [Colonoscopy and endoscopy should be done on outpatient basis when her disease calmes down] Social Determinants of Health Impact: Patient was evaluated in [facility], or [facility] [place] healthcare due to below par ratio of patient to medical providers. [] Comorbid Conditions Impacting Present Evaluation and Care/Treatment: [Crohn's disease] Management Discussions with other Healthcare Providers: [None] Treatment and Disposition Medication Management (Given or considered): [Fluid resuscitation was provided for treatment of clinically and/or laboratory apparent dehydration., pain gomez gement]. See EMR for details Consideration for Hospitalization/Escalation/Deescalation of Care: Admission for observation has been considered, [however the patient is able to tolerate p.o., their symptoms are controlled, they are able to rely on oral medications, and their chief complaint/diagnosis can be managed on outpatient basis.] ?ED Course:?[No clinical deterioration] ?Shared decision making:?[Patient is hemodynamically stable for discharge home with follow with their primary care provider. [ ] Specific and cautious return precautions provided and discussed with full understanding. Any incidental findings were also discussed and follow up recommendations given. [] All questions answered. Patient/family were able to verbalize back return precautions. Patient/family agree to plan. Copies of imaging and laboratory studies were provided.] Code status:?FULL Please see the full Electronic Medical Record for full details of nursing documentation, medications list, other records of complete past medical history and conditions, vital signs, laboratory studies, and any radiologic study interpretations by radiologists. Portions of this note were completed using [employer] dictation software and as a result there may exist minor errors in spelling. I have reviewed elements of past family and social history and agree as included in note. Departure Disposition: HOME / SELF CARE / HOMELESS Impression: Primary Impression: Acute diarrhea Condition: Improved Discharge Instructions: Diarrhea, Adult Referrals: NO PRIMARY CARE PROVIDER (PCP) Education Educated: Patient Educated regarding: diagnosis, treatment, prognosis, need for follow up Signature Scribe Signature: No scribe Attestation: This note accurately reflects clinical decisions, work performed by myself, DO ANTONY Joshua NICHOLAS M DO Apr 23, 2025 12:25
--- NOTE | 2025-04-23 12:27 | ELECTROCARDIOGRAPH REPORT ---
[facility] Test Date: 2025-04-23 Test Time: 12:25:35 Pat Name: RUSSELL JIN Department: EMERGENCY ROOM Room: Gender: F Human Capital Consultant: BERTRAM : 1960 Requested By: EVA HARDY Order Number: [id number] Reading MD: Dr. Ariel Crowe Measurements Intervals [place] Rate: 105 P: 53 DC: 129 QRS: 78 QRSD: 120 T: 27 QT: 361 QTc: 478 Interpretive Statements Sinus tachycardia IVCD, consider atypical RBBB Electronically Signed On 04-23-2025 18:25:[address] Ariel Crowe Please click the below link to view image of tracing.
[2025-04-23 13:10] LABS: CREATININE 0.66 MG/DL (0.40-0.90); PHOSPHORUS 4.0 MG/DL (2.3-4.5); TOTAL CARBON DIOXIDE 24.4 MMOL/L (24-32); eCRCL 9 ML/MIN; eGFR 90 ML/MIN
[2025-04-23 13:21] LABS: OCCULT BLOOD STOOL NEGATIVE (Neg)
[2025-04-23] MEDS: normal saline 1000ML IV soln IVB ONE (14:00)
[2025-04-23] MEDS ORDERED: OXYC1TAB17 (14:07)
[2025-04-23] MEDS ORDERED: HYDR4TAB55 PO (14:07)
[2025-04-23] MEDS ORDERED: iohexol 300mg/ml 100ml inj. ONE (14:15)
[2025-04-23 14:29] LABS: MEAN PLATELET VOLUME 7.9 FL (7.4-10.4); RED CELL DISTRIBUTION WIDTH 21.1 % (11.5-14.5)
[2025-04-23 14:43] LABS: LYMPHOCYTES % (MANUAL) 12.0 % (21-51); MONOCYTES % (MANUAL) 6.0 % (2-12); NEUTROPHILS % (MANUAL) 82.0 % (42-75); PLATELET ESTIMATE NORMAL
[2025-04-23 14:47] LABS: LEUKOCYTE ESTERASE ,URINE NEGATIVE (Neg); NITRITES, URINE NEGATIVE (Neg); OCCULT BLOOD,URINE NEGATIVE (Neg)
[2025-04-23 14:48] LABS: UA COLLECTION TYPE CLN CATCH MIDSTREAM
--- NOTE | 2025-04-23 15:40 | RADIOLOGY REPORT ---
Exam: CT CT ABDOMEN PELVIS W/ IV CONTRAST History: Abdominal pain and diarrhea, history of Crohn's disease Comparison Study: CT CTA ABDOMEN PELVIS on DOS: 04/21/25, CT CT ABDOMEN PELVIS on DOS: 04/17/25, CT CT ABDOMEN PELVIS W/ IV CONTRAST on DOS: 01/18/25 TECHNIQUE: A digital fourth officer image was obtained. During the uneventful, intravenous administration of c ontrast material, multislice data acquisition was obtained through the abdomen and pelvis. The data s et was subsequently reconstructed into axial images. Images reviewed on a wrist examination is an exa mination of axial and multiplanar reformations using a variety of window levels and settings. RADIATION DOSE: DLP 830.38 mGy.cm; CTDI vol 18.89 mGy. Findings: Lungs: The lung bases are clear. Heart: No cardiomegaly or pericardial effusion. Liver: Fatty infiltration of the liver. Gallbladder: Unremarkable. Spleen: Unremarkable Pancreas: Unremarkable Adrenals: Unremarkable Kidneys: Unremarkable GI tract: Diverticulosis without evidence of acute diverticulitis. Submucosal fat deposition througho ut the colon. Mild wall thickening of the descending and rectosigmoid colon. : Unremarkable. Vasculature: Mild aortoiliac atherosclerosis. Infrarenal IVC filter. Lymphadenopathy: Absent Peritoneum: No ascites Musculoskeletal: Unremarkable Soft tissues: Unremarkable Impression: 1. No acute abdominopelvic abnormalities. 2. Diverticulosis without evidence of acute diverticulitis. 3. Mild wall thickening of the descending and rectosigmoid colon. Correlate for colitis. 4. Submucosal fat deposition throughout the colon. Consistent with history of inflammatory bowel dise ase. 5. Hepatic steatosis.
[2025-04-23 16:32] VITALS: BP 125/75; PULSE 93; RESP 16; O2SAT 99
== END 2025-04-23 16:34 | disposition home or self-care (01) ==
LOC: ER 11:56
DX: R19.7 Diarrhea, unspecified (principal); R10.84 Generalized abdominal pain; I25.10 Atherosclerotic heart disease of native coronary artery without angina pectoris; K50.90 Crohn's disease, unspecified, without complications; Z86.711 Personal history of pulmonary embolism; Z87.11 Personal history of peptic ulcer disease; Z88.8 Allergy status to other drugs, medicaments and biological substances; Z90.49 Acquired absence of other specified parts of digestive tract; Z90.710 Acquired absence of both cervix and uterus; Z98.84 Bariatric surgery status; Z98.890 Other specified postprocedural states
CPT/HCPCS: 36415; 74177; 80053; 81003; 82272; 83605; 83690; 83735; 84100; 84484; 85025; 85651; 86140; 87040; 93005; 96361; 96374; 99285; J1171; J7030; Q9967; 85007